=== PATIENT | female | born 1955 | race Caucasian/White ===

== ENCOUNTER 2020-07-31 00:34 | Outpatient (CLI) | payer BC, SELFPAY ==
--- NOTE | 2020-07-31 | DI.MAMMO_ITS ---
EXAM: MG MAMMO SCREENING CLINICAL HISTORY: SCREENING,Z12.31 TECHNIQUE: Bilateral full field digital CC and MLO mammographic images were obtained with 3D tomosyn thesis and utilizing computer aided detection (CAD). COMPARISON: Available for comparison. FINDINGS: Masses/Architectural Distortion: None seen. Microcalcifications: No suspicious pleomorphic-type are seen. Skin Thickening/Nipple Retraction: None. IMPRESSION: 1. No significant interval change with no specific features of malignancy noted. 2. Unless there is more urgent need, screening mammography is recommended, as per [employer] guidelines. BI-RADS Category 1 - Negative Breast Density - Category C - Heterogeneously dense The mammogram demonstrates the patient's breast tissue is dense. Dense breast tissue is very common a nd is not abnormal but dense breast tissue can make it harder to find cancer on a mammogram. Also, de nse breast tissue may increase their breast cancer risk. This information about the result of the [facility] mogram report was provided to the patient to raise their awareness. Use this report when you speak wi th the patient about their risks for breast cancer, which includes their family history. At that time , you may recommend for more screening tests (Ultrasound or MRI) as they might be useful based on the ir risk. A negative radiographic report should not delay biopsy if a dominant or clinically suspicious mass is present. Up to ten percent of cancers are not identified on mammography. A negative report may reinforce clinical impression. Adenosis and dense breasts may obscure an underlying neoplasm. False positive reports average 6 to 10%. Patient will receive a letter notifying them of these results.
== END 2020-07-31 00:54 ==
PROVIDERS: PCP Nurse Practitioner; Visit Provider Nurse Practitioner
DX: Z12.31 Encounter for screening mammogram for malignant neoplasm of breast (principal)
CPT/HCPCS: 77063; 77067

== ENCOUNTER 2020-07-31 00:40 | Outpatient (CLI) | payer BC, SELFPAY ==
--- NOTE | 2020-07-31 | DI.RAD_ITS ---
EXAM: XR CERVICAL SP DE LA GARZA TRAUMA 2-3V CLINICAL HISTORY: C4-7 FUSION IN 2012,NECK PAIN, ASSESS MOTION,CERVICALGIA,M54.2. TECHNIQUE: 2D digital imaging was performed. COMPARISON: No exams were available for comparison FINDINGS: This is a limited examination of the cervical spine. Lateral flexion and extension views of the cerv ical spine were obtained. There is an anterior cervical disc fusion from C4 through C7. 3.6 mm ante rolisthesis of C3 on C4 is noted. This is unchanged with flexion or extension. The prevertebral sof t tissues are unremarkable. 2 mm anterolisthesis of C2 on C3 is noted and is unchanged. IMPRESSION: DATA REPOSITORY: RADIATION DOSE DELIVERED:
== END 2020-07-31 01:00 ==
PROVIDERS: PCP Nurse Practitioner; Visit Provider Physician Assistant Medical
DX: M54.2 Cervicalgia (principal); Z98.1 Arthrodesis status
CPT/HCPCS: 72040

== ENCOUNTER 2021-02-09 19:33 | Emergency (ER) | payer BC, SELFPAY ==
[2021-02-09 19:35] VITALS: BP 146/61; PULSE 96; RESP 18; TEMP 36.2; O2SAT 94
--- NOTE | 2021-02-09 19:43 | W.ED.GENAD ---
Discharge Plan Disposition Patient Disposition: HOME Condition: Improving Discharge Details Chief Complaint: Orthopedic Clinical Impression: Contusion of hand, left Primary Care Provider: Evelyne Maloney ED Provider: Sudheer Harris Home Meds and New Rx's Prescriptions: No Action clonazepam [Klonopin] 0.5 mg Tablet 0.5 mg PO DAILY PRNRF: 0 hydrochlorothiazide 25 mg Tablet 25 mg PO DAILY RF: 0 Discharge Instructions Instructions: Contusion in Adults (ED) Additional Instructions: Please wear splint as needed for comfort and to allow for healing over the next 3 to 7 days time. Apply ice to area to reduce pain and swelling. Tylenol as needed for discomfort. Continue your regular medications. Return to the ER for any acute concerns. 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 The ball was thrown in her direction and struck the back of her left hand. She developed a dorsal bruise. Ice is applied and she presented to the ER. She is motor and sensory intact. Must exclude underlying bony injury and patient referred for x-ray. X-ray does not reveal bony injury. Given contusion and pain, patient placed in removable splint. She understands homecare as well as indications to seek reevaluation. Stable and appropriate for discharge to home HPI General Mode of arrival: ambulatory. Date/Time Provider Initiated Documentation: 02/09/21 19:39. Limitations to Documentation: no limitations. Information obtained by: patient. History of Present Illness 65 year old F presents to the emergency department with the chief complaint of Left hand injury, described as moderate, Quality is described as dull and constant, and is localized to the left and upper extremity. Patient reports no radiation. Patient started experiencing this minute(s) and it has been constant. No relieving factors improve symptom(s), No exacerbating factors reported . Patient did receive the following treatments prior to arrival, cold therapy Related Data Home Medications Medication Instructions Recorded Confirmed clonazepam [Klonopin] 0.5 mg PO DAILY PRN 02/09/21 02/09/21 hydrochlorothiazide 25 mg PO DAILY 02/09/21 02/09/21 Allergies Allergy/AdvReac Type Severity Reaction Status Date / Time promethazine [From Phenergan] AdvReac Psychosis Unverified 02/09/21 19:38 General Stated Complaint: Orthopedic KERVIN: 4 Review of Systems Narrative: 6 systems reviewed and otherwise neg [facility] Social History Smoking/Tobacco Use Status: Never Smoking risk assessment performed?: Yes Alcohol Intake: never Drug use: Never Substance use type: does not use Do you feel safe at home: Yes Do you feel safe in your relationship?: Yes Exam Narrative Exam Narrative: GEN: awake, alert, oriented 3. Pleasant, well groomed, interactive. HEAD: Normocephalic, atraumatic EYES: PERRL, EOMI EXT: Full ROM, left hand dorsum with ecchymosis overlying the third and fourth metacarpals, tender to touch. No bony clicks, distal range of motion and sensation is within normal limits. Neuro: Grossly normal neurologic exam, conversant, interactive. Psych: Speech fluent, thoughts congruent, affect normal Course Vital Signs Vital signs: Vital Signs Temperature 36.2 C L 02/09/21 19:35 Pulse 96 H 02/09/21 19:35 Respiratory Rate 18 02/09/21 19:35 Blood Pressure 146/61 H 02/09/21 19:35 Pulse Oximetry 94 02/09/21 19:35 Temperature 36.2 C L 02/09/21 19:35 Temperature Source Skin 02/09/21 19:35 Pulse 96 H 02/09/21 19:35 Respiratory Rate 18 02/09/21 19:35 Respiratory Effort Non-Labored 02/09/21 19:40 Blood Pressure 146/61 H 02/09/21 19:35 Blood Pressure Position Sitting 02/09/21 19:35 Pulse Oximetry 94 02/09/21 19:35 Oxygen Delivery Method Room Air 02/09/21 19:35 Oxygen Flow Rate 0 02/09/21 19:35 Pain Level 8 02/09/21 19:35
--- NOTE | 2021-02-09 19:45 | DI.RAD_ITS ---
Exam(s) XR HAND LT COMPLETE EXAM: XR HAND LT COMPLETE CLINICAL HISTORY: Hand pain. TECHNIQUE: 2D digital imaging was performed. COMPARISON: No exams were available for comparison FINDINGS: BONES: No acute fracture is present. No bony destructive lesion is seen. JOINTS: No dislocation present. There are venous degenerative changes at the 1st carpal metacarpal monserrat int. There is a in adjacent calcification which is degenerative. Minimal degenerative changes are s een elsewhere. IMPRESSION: Advanced degenerative changes at the 1st carpal metacarpal joint and adjacent calcification. No acut e abnormality. DATA REPOSITORY: RADIATION DOSE DELIVERED:
--- NOTE | 2021-02-09 21:00 | DI.VRAD_ITS ---
PROCEDURE INFORMATION: Exam: XR Left Hand Exam date and time: 02/09/2021 7:52 PM Age: 65 years old Clinical indication: Injury or trauma; Work related; Blunt trauma (contusions or hematomas); Left; Injury date: 02/09/21; Injury details: Hit by softball dorsal hand TECHNIQUE: Imaging protocol: XR Left hand. Views: 3 or more views. COMPARISON: No relevant prior studies available. FINDINGS: Bones/joints: There are no acute displaced fractures or subluxations. There is moderate narrowing of the basal joint of the 1st digit with periarticular spurring consistent with moderate degenerative joint disease. There are also mild degenerative changes of the 1st interphalangeal joint as well as the 2nd and 3rd distal interphalangeal joints. There is a 7 x 5 mm ossified body anterior lateral to the trapezium, which may be degenerative or sequela of old trauma. Osseous mineralization is normal. There are no inflammatory osseous erosive changes. No focal osseous lesions are identified. Soft tissues: Normal. IMPRESSION: 1. No acute displaced fractures or subluxations identified. 2. Moderate degenerative change of the basal joint of the 1st digit with mild degenerative changes elsewhere as described above. 3. Small ossified body anterior lateral to the trapezium, likely degenerative or sequela of old trauma. Dictated and Authenticated by: Demetrio Walker MD. Ordering:VICENTE Willard MD
== END 2021-02-09 20:48 | disposition home or self-care (01) ==
PROVIDERS: Emergency Provider Emergency Medicine; PCP Nurse Practitioner
DX: S60.222A Contusion of left hand, initial encounter (principal); W21.07XA Struck by softball, initial encounter; Y93.64 Activity, baseball
CPT/HCPCS: 29125; 99283; 73130

== ENCOUNTER 2022-02-14 19:51 | Emergency (ER) | payer BC, SELFPAY ==
[2022-02-14] VITALS (10 sets, daily range): BP systolic 123–140; BP diastolic 49–86; PULSE 92–105; RESP 8–25; TEMP 36.3–37; O2SAT 95–100
--- NOTE | 2022-02-14 20:00 | RT.EKG_ITS ---
APPROVED REPORT Exam: Resting ECG Reason for Exam: sob Patient Location: E HR:95 bpm ECG Measurements Heart Rate 95 AXIS DE 138 P 60 QRSd 84 QRS -5 QT 359 T 84 QTc 452 Conclusion Sinus rhythm...normal P axis, V-rate 60- 99 Physician: no stemi, stable
--- NOTE | 2022-02-14 20:15 | ED.GENADUL_ITS ---
Discharge Plan Disposition Patient Disposition: HOME Condition: Good Discharge Details Clinical Impression: Bronchitis Primary Care Provider: Evelyne Maloney ED Provider: Dominguez Loomis Home Meds and New Rx's Prescriptions: New azithromycin 250 mg tablet 250 mg PO DAILY 4 Days Qty: 4 0RF Rx Instructions: start on day 2 of therapy benzonatate 100 mg capsule 100 mg PO TID Qty: 30 0RF Continued clonazepam [Klonopin] 0.5 mg Tablet 0.5 mg PO DAILY PRN Discharge Instructions Instructions: Acute Bronchitis (ED) Additional Instructions: At this time your symptoms appear consistent with mild bronchitis and the start of early pneumonia. He also have reactive airway disease. You have been given the first dose of the antibiotic. A prescription has been sent to your pharmacy for the remainder of the antibiotic course. Please take this as directed. We have also sent a prescription for a cough medicine called Prasanna Monsalve. Please take this as directed.. We have given you an inhaler, please take 2 puffs every 12 hours for the next week to help with your cough and irritation. In addition to this you can also use your nebulizer at home every 4-6 hours as needed. If you notice any worsening of your symptoms, or any new symptoms such as vomiting, diarrhea, fever, chills, shortness of breath, chest pain, numbness, weakness, or fainting , please return immediately to the emergency department for reevaluation. Please follow up with your primary care provider as soon as possible for reassessment and reevaluation. As always, it was a pleasure participating in your medical care today. Referrals: Evelyne Maloney [Primary Care Provider] - Medical Decision Making This is a 66-year-old female with a past medical history of intermittent reactive airway disease who does have a nebulizer at home, no other significant past medical history who presents today for evaluation of cough for the last 4 days. Patient states that she has had a persistent cough cloudy sputum. She does admit to feeling sweaty but denies any fever. She has a small amount of pain when she coughs but no pain otherwise. She does feel slightly short of breath. She did take a breathing treatment at home but this did not improve her symptoms. Denies PE risk factors such as recent long car rides, immobilization, recent surgery, prior history of DVT or PE, family history of PE or DVT, morbid obesity, exogenous estrogen and smoking, hemoptysis, history of cancer. She denies any history of cardiac disease, other sick contacts, or history of tobacco abuse. She does have her COVID-vaccine and booster. No other complaints at this time. No hemoptysis. Exam demonstrates slightly diminished breath sounds throughout, minimal scattered crackles in the bases. Symptoms appear less consistent with ACS. Differential is highest for pneumonia. CHF exacerbation is on the differential but less likely. COVID is also of concern. We will evaluate for these etiologies, give breathing treatments, monitor closely and reassess. 10:21 PM X-ray result is negative for acute process per radiology, laboratory work-up demonstrates stable EKG, normal troponin, VBG stable, proBNP normal. No signs of CHF. COVID, flu, RSV are negative. Patient feels much better after updraft. Lung sounds are improved. I do hear some scattered crack still. I do feel that the patient symptoms are consistent with early bronchitis versus early pneumonia. We will give a Symbicort inhaler for home use for her persistent cough, Tessalon Perles for home use, and a prescription for azithromycin patient's vital signs are stable, no signs of significant respiratory distress requiring admission. Patient will be discharged home. Discussed red flags which to return. I have extensively reviewed the treatment plan and discharge instructions with the patient. I have addressed all patient concerns at this time. The patient was made aware of what symptoms to monitor for that would warrant a return to the emergency department. Discussed the plan with the patient, they demonstrate verbal understanding and agreement with our assessment and plan at this time. The documentation in this chart was dictated using [employer] dictation software. Please excuse any dictation errors. FINDINGS: Lungs: Low lung volumes. No airspace consolidation. Pleural spaces: No pleural effusion. No pneumothorax. Heart/Mediastinum: No cardiomegaly. Bones/joints: Cervical spine fixation hardware is partially assessed. No displaced fracture. IMPRESSION: Negative low volume study. Thank you for allowing us to participate in the care of your patient. Dictated and Authenticated by: Aniyah Dietz MD 02/14/2022 9:51 PM Eastern Time ([place] & [place]) HPI General Date/Time Provider Initiated Documentation: 02/14/22 19:55 . HPI Narrative: This is a 66-year-old female with a past medical history of intermittent reactive airway disease who does have a nebulizer at home, no other significant past medical history who presents today for evaluation of cough for the last 4 days. Patient states that she has had a persistent cough cloudy sputum. She does admit to feeling sweaty but denies any fever. She has a small amount of pain when she coughs but no pain otherwise. She does feel slightly short of breath. She did take a breathing treatment at home but this did not improve her symptoms. Denies PE risk factors such as recent long car rides, immobilization, recent surgery, prior history of DVT or PE, family history of PE or DVT, morbid obesity, exogenous estrogen and smoking, hemoptysis, history of cancer. She denies any history of cardiac disease, other sick contacts, or hi story of tobacco abuse. She does have her COVID-vaccine and booster. No other complaints at this time. No hemoptysis. Related Data Home Medications Medication Instructions Recorded Confirmed clonazepam 0.5 mg tablet (Klonopin) 0.5 mg PO DAILY PRN 02/09/21 02/09/21 azithromycin 250 mg tablet 250 mg PO DAILY 4 days #4 tabs 02/14/22 benzonatate 100 mg capsule 100 mg PO TID #30 caps 02/14/22 Previous Rx's Medication Instructions Recorded azithromycin 250 mg tablet 250 mg PO DAILY 4 days #4 tabs 02/14/22 benzonatate 100 mg capsule 100 mg PO TID #30 caps 02/14/22 Allergies Allergy/AdvReac Type Severity Reaction Status Date / Time promethazine [From Phenergan] AdvReac Psychosis Unverified 02/14/22 20:06 General Stated Complaint: SOB KERVIN: 2 Review of Systems All systems reviewed & are unremarkable except as noted in HPI and below PFSH All Active Problems (Updated 02/14/22 @ 22:18 by Dominguez Loomis DO) Contusion of hand, left (Acute) Bronchitis (Acute) Social History Smoking/Tobacco Use Status: Never Smoking risk assessment performed?: Yes Alcohol Intake: never Drug use: Never Substance use type: does not use Do you feel safe at home: Yes Do you feel safe in your relationship?: Yes Exam Narrative Exam Narrative: 1.Const: Well-nourished, Well-developed, appearing stated age 2.Eyes: PERRL, no conjunctival injection, and symmetrical lids. 3.ENT: Atraumatic external nose and ears. Moist MM. Neck: Symmetric, trachea midline, No thyromegaly. 4.CVS: +S1/S2, No murmurs or gallops. Peripheral pulses 2+ and equal in all extremities. Brisk capillary refill in all extremities. 5.RESP: Unlabored respiratory effort. Diminished breath sounds throughout, minimal scattered crackles at the bases. 6.GI: Soft, Nontender/Nondistended, No hepatosplenomegaly. No guarding or rebound. 7.MSK: Normocephalic/Atraumatic, Extremities w/o deformity or ttp No cyanosis or clubbing, Normal movement of all extremities, no pitting edema. 8.Skin: Warm, Dry. No rashes or lesions. 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 Sensation grossly intact, no focal neurologic deficits. 10.Psych: (AAO) x3. Appropriate mood and affect Course Vital Signs Vital signs: Vital Signs Temperature 36.3 C L 02/14/22 20:03 Pulse 105 H 02/14/22 20:03 Respiratory Rate 25 H 02/14/22 20:03 Blood Pressure 134/49 L 02/14/22 20:03 Pulse Oximetry 96 02/14/22 20:03 Temperature 36.3 C L 02/14/22 20:03 Temperature Source Temporal Artery Scan 02/14/22 20:03 Pulse 105 H 02/14/22 20:03 Respiratory Rate 25 H 02/14/22 20:03 Respiratory Effort 02/14/22 20:11 Respiratory Depth Shallow 02/14/22 20:11 Respiratory Pattern Tachypnea 02/14/22 20:11 Blood Pressure 134/49 L 02/14/22 20:03 Blood Pressure Position Sitting 02/14/22 20:03 Pulse Oximetry 96 02/14/22 20:03 Oxygen Delivery Method Room Air 02/14/22 20:03 Oxygen Flow Rate 0 02/14/22 20:03 Pain Level 0 02/14/22 20:03
[2022-02-14 20:27] LABS: BE (Venous) 6 mmol/L (-2-3); HCO3 (Venous) 31 mmol/L (23-28); O2 Sat (Venous) 58 %; TCO2 (Venous) 28 mmol/L (24-29); pCO2 (Venous) 54 mmHg (41-51); pH (Venous) 7.37 (7.31-7.41); pO2 (Venous) 32 mmHg
[2022-02-14 20:30] LABS: Abs Immature Grans 0.03 10^3/uL (0.0-0.06); Absolute Basophil Count 0.07 10^3/uL (0.0-0.2); Absolute Eosinophil Count 0.47 10^3/uL (0.0-0.7); Absolute Lymphocyte Count 2.13 10^3/uL (1.2-3.4); Absolute Monocyte Count 0.81 10^3/uL (0.1-0.8); Absolute Neutrophil Count 4.49 10^3/uL (1.2-6.7); Basophils % 0.9; Eosinophils % 5.9; HGB 13.6 g/dL (11.2-15.7); Immature Grans % 0.4; Lymphocytes % 26.6; MCH 30.6 pg (27.0-33.0); MCHC 32.4 % (32.0-36.0); MCV 95 fL (80-95); MPV 9.2 fL (8.0-11.0); Monocytes % 10.1; Neutrophils % 56.1; Platelet Count 339 10^3/uL (130-400); RBC 4.44 10^6/uL (3.93-5.22)
[2022-02-14] MEDS: Albuterol/Ipratropium 3 ML UPD VIAL 6 ML UPD (20:32)
[2022-02-14 20:49] LABS: ALT 44 U/L (14-59); AST 33 U/L (15-37); Albumin 3.4 g/dL (3.4-5.0); Alkaline Phosphatase 123 U/L (46-116); Anion Gap 7.6 mmol/L (3-11); BUN 14 mg/dL (7-18); Bilirubin, Total 0.2 mg/dL (0.2-1.0); CO2 29.4 mmol/L (21.0-32.0); Chloride 104 mmol/L (98-107); Estimated GFR 55.47 (mL/min/1.73m2); Glucose 109 mg/dL (74-106); NT-proBNP 16 pg/mL (<300); Potassium 4.2 mmol/L (3.5-5.1); Sodium 141 mmol/L (136-145); Total Protein 7.2 g/dL (6.4-8.2); Troponin I < 50 ng/L (<or=60)
[2022-02-14 21:10] LABS: COVID-19 PCR Negative (Negative); Influenza A PCR Negative (Negative); Influenza B PCR Negative (Negative); RSV PCR Negative (Negative)
--- NOTE | 2022-02-14 21:36 | DI.RAD_ITS ---
Exam(s) XR PORTABLE CHEST AP EXAM: XR PORTABLE CHEST AP CLINICAL HISTORY: cough, sob, r/o pneumonia TECHNIQUE: 2D digital imaging was performed. COMPARISON: No exams were available for comparison FINDINGS: Poor pulmonary inflation. Leads overlie the chest. Lungs are grossly clear. Heart size normal. [place]ola[place] rdware lower cervical spine.. IMPRESSION: No acute findings. DATA REPOSITORY: RADIATION DOSE DELIVERED:
--- NOTE | 2022-02-14 21:52 | DI.VRAD_ITS ---
PROCEDURE INFORMATION: Exam: XR Chest Exam date and time: 02/14/2022 21:23 Age: 66 years old Clinical indication: Patient HX: Cough, covid - TECHNIQUE: Imaging protocol: XR of the chest. Views: 1 view. COMPARISON: CR XR CERVICAL SP DE LA GARZA TRAUMA 2-3V 07/31/2020 12:31 FINDINGS: Lungs: Low lung volumes. No airspace consolidation. Pleural spaces: No pleural effusion. No pneumothorax. Heart/Mediastinum: No cardiomegaly. Bones/joints: Cervical spine fixation hardware is partially assessed. No displaced fracture. IMPRESSION: Negative low volume study. Dictated and Authenticated by: Aniyah Dietz MD. Ordering:WILBERTO Mix MD
[2022-02-14] MEDS: Benzonatate 100 MG CAP PO (22:36)
[2022-02-14] MEDS: Azithromycin 250 MG TAB 500 MG PO (22:36)
[2022-02-14] MEDS: Budesonide/Formoterol 160/4.5 6 GM 60 PUFF INH IH (22:37)
== END 2022-02-14 22:52 | disposition home or self-care (01) ==
PROVIDERS: Emergency Provider Student in an Organized Health Care Education/Training Program; PCP Nurse Practitioner
DX: J20.9 Acute bronchitis, unspecified (principal)
CPT/HCPCS: 36415; 80053; 82805; 87637; 93005; 94640; 99284; 71045; 83880; 84484; 85025; 93010; J7620

== ENCOUNTER → 2022-03-11 10:37 | Outpatient (CLI) | payer BC, SELFPAY ==
--- NOTE | 2022-03-11 | DI.RAD_ITS ---
Exam(s) XR RIBS RT W PA LAT CHEST EXAM: XR RIBS RT W PA LAT CHEST CLINICAL HISTORY: RIGHT SIDED RIB PAIN--R07.81 TECHNIQUE: 2D digital imaging was performed. COMPARISON: CR,XR XR PORTABLE CHEST AP from 02/14/2022 FINDINGS: RIGHT RIB CAGE: There are no obvious acute right rib fractures evident. No rib lesions identified. CHEST X-RAY: Fusion plate in the lower cervical spine again noted. Heart size normal. No mediastinal widening Atelectasis or scarring in the right lung upper lobe is again noted. Atelectasis or mild infiltrate right lower lobe noted. No pleural effusions. No pneumothorax.. IMPRESSION: 1. No obvious right rib fractures evident. 2. Scarring or atelectasis in the right upper lobe noted, previously present although mildly increase d. There also appears to be some atelectasis in the right lower lobe behind the hemidiaphragm. Ther e is no pneumothorax DATA REPOSITORY: RADIATION DOSE DELIVERED:
--- OUTSIDE RECORDS SUMMARY | 2022-03-11 10:50 | XMS_ITS ---
:1955 Author Care Team Providers Name Role Phone DR. VIOLETA DURHAM Primary Care Provider [phone] DR. VIOLETA DURHAM Referring Provider [phone] VIOLETA DURHAM APRN Primary Care Provider Unavailable ANABEL HERNANDEZ Executive Search Consultant [phone] CANELA Primary Care Provider Unavailable DR. CANELA Referring Provider Unavailable Allergies Code Code System Name Reaction Severity Status Onset 309496 RxNorm Phenergan ? ? Active ? Medications Name Status Start Date Stop Date ? ? Advair Diskus 500 mcg-50 mcg/dose powder for inhalation Active 11/28/2012 Not available Inhale 1 puff twice a day by inhalation route. atorvastatin 10 mg tablet Active ? Not av ailable Take 1 tablet every day by oral route at bedtime. Cortisporin 3.5 mg/mL-10,000 unit/mL-1 % ear drops,suspensio n Completed 06/09/2017 07/11/2017 INSTILL 4 DROPS INTO AFFECTED EAR(S) BY OTIC ROUTE 3 TIMES PER DAY Depakote 500 mg tablet,delayed release Completed ? 07/11/2017 Take by oral route. Diflucan 150 mg tablet Completed ? 7 Take by oral route. escitalopram 20 mg tablet Active ? Not av ailable Take 1.5 tablets every day by oral route. Flonase 50 mcg/actuation nasal spray,suspension Active ? Not available [place] 1 spray every day by intranasal route. hydrochlorothiazide 12.5 mg tablet Active ? Not available Take 1 tablet every day by oral route. hydrocortisone 2.5 % topical cream Active 06/24/2017 Not available APPLY A THIN LAYER TO THE AFFECTED AREA(S) BY TOPICAL ROUTE 2 T IMES PER DAY ketorolac 10 mg tablet Active ? Not avail able Take 1 tablet every 6 hours by oral route for 4 days. Klonopin 0.5 mg tablet Active ? Not avail able TAKE 1 TABLET (0.5 MG) BY ORAL ROUTE TWICE A DAY IN T HE AM AND 2 AT BEFORE BED Lidocaine HCl Viscous 2 % mucosal solution Completed 09/2807/11/2017 Take 5 mL every 3-4 hours by oral route as needed. meclizine 25 mg tablet Active ? Not avail able Take 1 tablet 3 times a day by oral route as needed. Miralax 17 gram oral powder packet Completed ? 07/11/2017 Take 1 packet by oral route as directed. naproxen 500 mg tablet Completed 10/23/2015 7 Take 1 tablet every hour by oral route as needed. nortriptyline 10 mg capsule Active ? Not available Take 1 capsule every day by oral route at bedtime. nortriptyline 25 mg capsule Completed ? 06/26 Take 2 capsules every day by oral route at bedtime. Singulair 10 mg tablet Completed 02/15/2017 7 Take 1 tablet every day by oral route at bedtime. sumatriptan 100 mg tablet Completed ? 2016 Take 1 tablet by oral route as needed. Problems Name Status Onset Date Source ? Hypercholesterolemia Active ? ? Restless Legs Active ? ? Migraine Active ? ? 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 ? Reactive Airway Disease Active ? ? Osteoarthritis Active ? ? Bursitis Active ? ? Plantar Fascial Fibromatosis Active ? ? Menopause Active ? ? Procedures Date Name Performed by ? 04/09/2016 Carpal Tunnel Surgery Information not av ailable 11/25/2011 Spine Disk Surgery Thorax Information no t available Notes: C4, C5, C6, C7 ? Knee Surgery Information not avai lable Notes: 2014 ? Foot Surgery Information not avai lable Notes: [id number] ? Remove Thyroid Duct Lesion Information n ot available Notes: Excision ectopic thyroid [facility] [place] ? Shoulder Surgery Information not avai lable Notes: RIGHT ? 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 12/22/2021 Amylase, [id number] Normal [place] 36 U/L 25-115 Final [place] Serum or U/L [facility] Plasma Laboratory & Pathology: [address] [place] [address] 12/22/2021 CMP, Serum [id number] Normal Na 141 mEq/L 136-145 Fi [place] or Plasma mEq/L [facility] l Laboratory & Pathology: [address] [place] [address] ? ? [id number] Normal K 4.2 mEq/L 3.5-5.1 Final [place] mEq/L [facility] Laboratory & Pathology: [address] [place] [address] ? ? [id number] Normal Cl 105 mEq/L 98-107 Final [facility] age mEq/L [facility] & Pathology: [address] [place] [address] ? ? [id number] Normal Co2 30 mEq/L 21-31 Final [facility] ge mEq/L [facility] Laboratory & Pathology: [address] [place] [address] ? ? [id number] ? Agap 10.8 ? Final [facility] calcul[facility] Hosp[facility] on Laboratory & Pathology: [address] [place] [address] ? ? [id number] Normal Glu 91 mg/dL 70-100 Final [facility] ge mg/dL [facility] Pathology: [address] [place] [address] ? ? [id number] Normal Bun 12 mg/dL 7-18 Final [facility] ge mg/dL [facility] Laboratory & Pathology: [address] [place] [address] ? ? [id number] Normal Creat 0.80 0.55-1.02 Final [facility] mg/dL mg/dL [facility] Laboratory & Pathology: [address] [place] [address] ? ? [id number] ? Bn/cr 15.0 ? Final [facility] Laboratory & Pathology: [address] [place] [address] ? ? [id number] Normal Ca 8.5 mg/dL 8.5-10.1 Final [place] mg/dL Hospital Laboratory [facility] Pathology: [address] [place] [address] ? ? [id number] Normal Alkp 92 U/L 50-130 Final [facility] U/L [facility] & Pathology: [address] [place] [address] ? ? [id number] Normal Alt 21 U/L 14-59 U/L Final [facility] Laboratory & Pathology: [address] [place] [address] ? ? [id number] Normal Ast 16 U/L 15-37 U/L Final [facility] Laboratory & Pathology: [address] [place] [address] ? ? [id number] Normal Tbil 0.2 mg/dL <=1.2 Final [facility] mg/dL Hospital Laboratory [facility] Pathology: [address] [place] [address] ? ? [id number] Normal Tp 6.8 g/dL 6.4-8.2 Final [facility] g/dL [facility] Laboratory & Pathology: [address] [place] [address] ? ? [id number] Normal Alb 3.5 g/dL 3.4-5.0 Final [facility] g/dL [facility] & Pathology: [address] [place] [address] ? ? [id number] ? Glob 3.28 ? Final [facility] mg/dL [facility] Laboratory & Pathology: [address] [place] [address] ? ? [id number] ? A/g 1.1 calc ? Final [facility] Laboratory & Pathology: [address] [place] [address] ? ? [id number] ? Egfraa 86.98 ? Final [facility] Laboratory & Pathology: [address] [place] [address] ? ? [id number] ? Egfrnaa 71.76 ? Final [facility] Laboratory & Pathology: [address] [place] [address] 12/22/2021 CBC W/ Auto [id number] Normal Wbc 5.8 4.8-10.8 Liliam l [facility] Diff 10^3/mm^3 10^3/mm^3 Hosp ital Laboratory & Pathology: [address] [place] [address] ? ? [id number] Normal Rbc 4.54 3.90-5.03 Final [facility] [place] [place] 10^6/mm^3 10^6/mm^3 Hosp ital Laboratory & Pathology: [address] [place] [address] ? ? [id number] Normal Hgb 13.8 g/dL 12.0-15.5 Final [place] g/dL Hospital Laboratory [facility] Pathology: [address] [place] [address] ? ? [id number] Normal Hct 44 % 36-46 % Final [facility] Laboratory & Pathology: [address] [place] [address] ? ? [id number] Normal Mcv 96.9 fL 81.0-99.0 Final [facility] fL [facility] Laboratory & Pathology: [address] [place] [address] ? ? [id number] Normal Mch 30.4 pg 27.1-32.0 Final [facility] pg [facility] Laboratory & Pathology: [address] [place] [address] ? ? [id number] Low Mchc 31 g/dL 33-36 Final [facility] g/dL [facility] Laboratory & Pathology: [address] [place] [address] ? ? [id number] Normal Rdw 13.8 % 11.6-14.8 Final [facility]ology: [address] [place] [address] ? ? [id number] Normal Platelet 296 150-400 Final [facility] 10^3/mm^3 10^3/mm^3 Hosp ital Laboratory & Pathology: [address] [place] [address] ? ? [id number] Normal Ne# 2.79 1.20-6.70 Final [place] 10^3/mm^3 10^3/mm^3 Hosp ital Laboratory & Pathology: [address] [place] [address] ? ? [id number] Normal Ly# 1.58 1.20-3.40 Final [place] 10^3/mm^3 10^3/mm^3 Hosp ital Laboratory & Pathology: [address] [place] [address] ? ? [id number] Normal Mo# 0.43 0.11-0.70 Final [place] 10^3/mm^3 10^3/mm^3 Hosp ital Laboratory & Pathology: [address] [place] [address] ? ? [id number] High Eo# 0.96 0.00-0.70 Final [place] 10^3/mm^3 10^3/mm^3 Hosp ital Laboratory & Pathology: [address] [place] [address] ? ? [id number] Normal Ba# 0.05 0.00-0.20 Final [place] 10^3/mm^3 10^3/mm^3 Hosp ital Laboratory & Pathology: [address] [place] [address] ? ? [id number] Normal Neut% 48 % per 40-74 % Final [place] 100 WBC per 100 Hospital WBC Laboratory & Pathology: [address] [place] [address] ? ? [id number] Normal Ly% 27 % per 19-48 % Final [place] 100 WBC per 100 Hospital WBC Laboratory & Pathology: [address] [place] [address] ? ? [id number] Normal Mo% 7.4 % per 3.0-10.0 Final [place] 100 WBC % per 100 Hospit al WBC Laboratory & Pathology: [address] [place] [address] ? ? [id number] High Eo% 16.5 % 1.0-7.0 % Final [place] per 100 per 100 Hospital WBC WBC Laboratory & Pathology: [address] [place] [address] ? ? [id number] Normal Ba% 0.9 % per 0.0-2.0 % Final [place] 100 WBC per 100 Hospital WBC Laboratory & Pathology: [address] [place] [address] 10/10/2020 SARS CoV 2 ? Upper nasophary ? [place] RNA Respirato [facility]geal Hosp[facility] l (COVID-19), ry Source [place] QL, senior administrative assistant-PCR, & Respiratory Patho logy: Specimen 90 [facility] ? ? Normal Sars not not [place] Cov-2 RNA detected detected Hos pital (Covid-19 Laborat ory ) & Pathology: [address] [place] [address] 06/23/2020 SARS CoV 2 ? Upper nasophary ? [place] RNA Respirato ngeal Hospita l (COVID-19), ry Source [place] QL, senior administrative assistant-PCR, & Respiratory Patho logy: Specimen 90 [facility] ? ? Normal Sars not not [place] Cov-2 RNA detected detected Hos pital (Covid-19 Laborat ory ) & Pathology: [address] [place] [address] 04/29/2018 Rf Low Rheumato <10 IU/mL 0-13 [place] (Rheumatoid id Factor IU/mL Ho spital Factor), Laborato ry Serum & Pathology: [address] [place] [address] Past Encounters None recorded. Social History Tobacco Smoking Status Never Smoker Notes: 07/11/17 Vaccine List Vaccine Type influenza, unspecified formulation 07/30/2011 06/22/2012 07/16/2013 07/16/2014 07/15/2015 06/28/2016 Tdap 07/22/2008 zoster live 08/01/2015 Plan of Care Reminders Provider Appointments None recorded. ? ? Lab None recorded. ? ? Referral None recorded. ? ? Procedures None recorded. ? ? Surgeries None recorded. ? ? Imaging None recorded. ? ? Vitals Blood Pressure 120/78 mm[Hg]
--- OUTSIDE RECORDS SUMMARY | 2022-03-11 10:51 | XMS_ITS ---
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 Adminis tered Rocephin Ceftriaxone 1g IM Intramuscular Oct 29, 2019 Adminis tered Pneumovax 23 Adult 65+ Purchased IM Intramuscular May 18, [id number] [place] [id number] IM Intramuscular Jun 12, 2018 Administere d Influenza Adult FluBlok high dose IM Intramuscular Jul 06, 2021 Administered PURCHASED Rocephin Ceftriaxone IM Intramuscular Sep 15, 2018 Administer ed Rocephin Ceftriaxone IM Intramuscular Sep 16, 2018 Administer ed INFLUENZA 18 YRS TO 64 YRS Unknown Jul 30, 2011 Admin istered OLD-STATE SUPPLIED COVID-19 Moderna [id number] IM Intramuscular December 15, 2020 Administ ered COVID-19 Moderna 84741 IM Intramuscular January 12, 2021 Administ ered INFLUENZA 18 YRS TO 64 YRS IM Intramuscular Jun 25, 2019 Admi nistered OLD-STATE SUPPLIED INFLUENZA 18 YRS TO 64 YRS IM Intramuscular Oct 04, 2018 Admi nistered OLD-STATE SUPPLIED INFLUENZA 18 YRS TO 64 YRS IM Intramuscular Aug 08, 2017 Admi nistered OLD-STATE SUPPLIED INFLUENZA 18 YRS TO 64 YRS IM Intramuscular Jun 28, 2016 Admi nistered OLD-STATE SUPPLIED INFLUENZA 18 YRS TO 64 YRS IM Intramuscular Jul 15, 2015 Admi nistered OLD-STATE SUPPLIED INFLUENZA 18 YRS TO 64 YRS IM Intramuscular Jul 16, 2014 Admi nistered OLD-STATE SUPPLIED INFLUENZA 18 YRS TO 64 YRS IM Intramuscular Jul 19, 2013 Admi nistered OLD-STATE SUPPLIED INFLUENZA 18 YRS TO 64 YRS IM Intramuscular Jun 22, 2012 Admi nistered O[employer]-STATE SUPPLIED COVID-19 Moderna [id number] Unknown Jul 29, 2021 Administe red Solu-Cortef 100mg per 2mL IM Intramuscular Aug 10, 2018 Admin istered Solu-Cortef 100mg per 2mL IM Intramuscular Sep 15, 2018 Admin istered Solu-Cortef 100mg per 2mL IM Intramuscular Sep 16, 2018 Admin istered Solu-Cortef 100mg per 2mL IM Intramuscular Sep 17, 2018 Admin istered TDaP Adult [facility] [id number] Unknown Jul 22, 2008 Administer ed TDaP Adult [facility] [id number] IM Intramuscular Jun 12, 2018 Administe red Zostavax [facility] [address] SC Subcutaneous Aug 01, 2015 Administered Solu-Cortef 100mg per 2mL IM Intramuscular Sep 18, 2018 Admin istered Solu-Cortef 100mg per 2mL IM Intramuscular Oct 29, 2019 Admin istered Prevnar PCV 13 Adult 65+ Purchased IM Intramuscular Jun 30, 2020 Administered 95038 SOCIAL HISTORY Qualifiers Date Never Smoker REASON FOR REFERRAL Reason xray LS spine pain radiating down Referral Organization [facility] [place] Referring Provider First Name Evelyne Referring Provider Last Name Amara Referring Provider Specialty Nurse Practitioner Referring Provider Referring Provider email [email or web address] Referred Organization [facility] Referred Provider [facility], Referred Address [facility] [place],[id number] Referred Provider Specialty Radiology Referral Appointment Date 2011-08-06 Reason MRI OF LS SPINE Referral Organization [facility] [place] Referring Provider First Name Evelyne Referring Provider Last Name Amara Referring Provider Specialty Nurse Practitioner Referring Provider Referring Provider email [email or web address] Referred Provider KATELYN Solis , MRI Referred Provider Specialty Radiology Referral Appointment Date 2011-08-18 Reason vertigo with history of meni ere's faxed paperwork to Dr. Lincoln office they will process and contact pt. Referral Organization [facility] [place] Referring Provider First Name Evelyne Referring Provider Last Name Amara Referring Provider Specialty Nurse Practitioner Referring Provider Referring Provider email [email or web address] Referred Provider Katya Lincoln Referred Provider Specialty Allergy/Immunology Referral Appointment Date 2012-02-24 Reason complex cyst of the myeometr ium of the uterus along with DUB Referral Organization [facility] [place] Referring Provider First Name Evelyne Referring Provider Last Name Amara Referring Provider Specialty Nurse Practitioner Referring Provider Referring Provider email [email or web address] Referred Provider [facility] Referred Provider Specialty OB - Gynecology Referral Appointment Date 2012-05-16 Reason Very Dizzy and has Meniere's disease- Will take 5pm on tuesday please Referral Organization [facility] [place] Referring Provider First Name Evelyne Referring Provider Last Name Amara Referring Provider Specialty Nurse Practitioner Referring Provider Referring Provider email [email or web address] Referred Provider Blake Molina Referred Provider Specialty Physical Therapist Referral Appointment Date 2012-10-23 Reason Vertigo Faxed referral pleas e call pt to schedule appt 10/16/2014 ia Referral Organization [facility] [place] Referring Provider First Name Renetta Murillo Referring Provider Last Name [email or web address] Referring Provider Specialty Family Practice Referring Provider Referred Provider Blake Molina Referred Provider Specialty Physical Therapist Reason left knee pain with Bakers c yst Faxed referral please call pt to schedule appt 04/01 ia Referral Organization [facility] [place] Referring Provider First Name Evelyne Referring Provider Last Name Coinjock Referring Provider Specialty Nurse Practitioner Referring Provider Referring Provider email [email or web address] Referred Provider [facility] Referred Provider Specialty Physical Therapist Referral Appointment Date 2015-04-23 Reason left knee pain with patella tendonosis Faxed referral please call pt to schedule a ppt at [facility] 07/21/2015 ia Referral Organization [facility] [place] Referring Provider First Name Evelyne Referring Provider Last Name Amara Referring Provider Specialty Nurse Practitioner Referring Provider Referring Provider email [email or web address] Referred Provider Stephan Menezes Referred Provider Specialty Orthopedic Surgery Reason Left knee pain Apd just need ed an updated referral for more visits. 10/22/2015 Mouna , do you know if this update on how many referrals were needed has been done; [facility] called today Referral Organization [facility] [place] Referring Provider First Name Evelyne Referring Provider Last Name Coinjock Referring Provider Specialty Nurse Practitioner Referring Provider Referring Provider email [email or web address] Referred Provider Stephan Menezes Referred Provider Specialty Orthopedic Surgery Reason dequervains tendonitis Faxe d referral please call pt to schedule appt 11/04/2015 ia Referral Organization [facility] [place] Referring Provider First Name Evelyne Referring Provider Last Name Amara Referring Provider Specialty Nurse Practitioner Referring Provider Referring Provider email [email or web address] Referred Provider [facility] Referred Provider Specialty Occupational Therapy Reason Rt wrist pain Faxed referral please call pt to schedule appt 11/24/2015 ia Referral Organization [facility] [place] Referring Provider First Name Evelyne Referring Provider Last Name Coinjock Referring Provider Specialty Nurse Practitioner Referring Provider Referring Provider email [email or web address] Referred Provider Gail Matthews Referred Provider Specialty Orthopedic Surgery Referral Appointment Date 2016-01-08 Reason right foot pain Faxed refer ral please call pt to schedule appt 06/27/2017 sc Referral Organization [facility] [place] Referring Provider First Name Evelyne Referring Provider Last Name Amara Referring Provider Specialty Nurse Practitioner Referring Provider Referring Provider email [email or web address] Referred Provider MD Spaulding Denis Referred Provider Specialty Podiatry Referral Appointment Date 2017-07-11 Reason right foot pain Faxed refer ral please call pt to schedule appt 07/18/2017 sc Referral Organization [facility] [place] Referring Provider First Name Evelyne Referring Provider Last Name Amara Referring Provider Specialty Nurse Practitioner Referring Provider Referring Provider email [email or web address] Referred Provider [facility] Referred Provider Specialty Podiatry Reason Dr Brendon she has seen him in the past Right foot pain order faxed pls contact pt to schedule 02/22/18 EFG Referral Organization [facility] [place] Referring Provider First Name Evelyne Referring Provider Last Name Amara Referring Provider Specialty Nurse Practitioner Referring Provider Referring Provider email [email or web address] Referred Provider [facility] Referred Provider Specialty Family Practice Referral Appointment Date 2018-03-06 Reason hearing loss of right ear 1 /2 pt needs appt gracy Referral Organization [facility] [place] Referring Provider First Name Evelyne Referring Provider Last Name Amraa Referring Provider Specialty Nurse Practitioner Referring Provider Referring Provider email [email or web address] Referred Provider [facility], Audiology Referred Provider Specialty Audiologists Reason acute sinusitis, hearing los s vertigo with history Meneire's and right endolymp hatic shunt Referral Organization [facility] [place] Referring Provider First Name Evelyne Referring Provider Last Name Amara Referring Provider Specialty Nurse Practitioner Referring Provider Referring Provider email [email or web address] Referred Provider [facility], Otolaryngology Referred Provider Specialty Otolaryngology Referral Appointment Date 2018-09-22 Reason bi-lateral hearing aids 02/02 referral faxed pls contact to schedule appt Referral Organization [facility] [place] Referring Provider First Name Evelyne Referring Provider Last Name Amara Referring Provider Specialty Nurse Practitioner Referring Provider Referring Provider email Referred Provider [facility] Reason cervicalgia Referral Organization [facility] [place] Referring Provider First Name Evelyne Referring Provider Last Name Amara Referring Provider Specialty Nurse Practitioner Referring Provider Referring Provider email [email or web address] Referred Provider Specialty Physical Therapist FUNCTIONAL STATUS PLAN OF CARE Activity Details Future Appointment Provider Name:Evelyne Young jesenia, 2022-05-24 04:40:00 PM, [address] [place], [id number], Referral 2011-08-06, xray LS spine pa in radiating down, [facility], [place], [place], [id number], Referral 2011-08-18, MRI OF LS SPINE, [place] [facility] Referral 2012-02-24, vertigo with his tory of meniere's faxed paperwork to Dr. Lincoln office they will process and contact pt., Katya Lincoln Referral 2012-05-16, complex cyst of the myeometrium of the uterus along with DUB, [facility] Referral 2012-10-23, Very Dizzy and h as Meniere's disease- Will take 5pm on tuesday please, Blake Molina Referral Vertigo Faxed referral pleas e call pt to schedule appt 10/16/2014 sc, Blake Molina Referral 2015-04-23, left knee pain w ith Bakers cyst Faxed referral please call pt to schedule appt 04/01 ia, Rehab [facility] Referral left knee pain with patella tendonosis Faxed referral please call pt to schedule appt at [facility] 1 sc, Stephan Menezes Referral Left knee pain Apd just need ed an updated referral for more visits. 10/22/2015 Mouna, do you know if this update on how many referrals were needed has be en done; [facility] called today, Stephan Menezes Referral dequervains tendonitis Faxe d referral please call pt to schedule appt 11/04/2015 ia, Rehab [facility] Referral 2016-01-08, Rt wrist pain Fa xed referral please call pt to schedule appt 11/24/2015 sc, Gail Matthews Referral 2017-07-11, right foot pain Faxed referral please call pt to schedule appt 06/27/2017 Joe fraga MD Referral right foot pain Faxed refer ral please call pt to schedule appt 07/18/2017 sc, [facility] Referral 2018-03-06, Dr Olivas she has seen him in the past Right foot pain order faxed pls contact pt to schedule 02/22/18 EFG, [facility] Referral hearing loss of right ear 1 /2 pt needs appt gracy, Audiology [facility] Referral 2018-09-22, acute sinusitis, hearing loss vertigo with history Meneire's and right endolymp hatic shunt, Otolaryngology [facility] Referral bi-lateral hearing aids 02/02 referral faxed pls contact to schedule appt, [facility] Referral cervicalgia Future Test CMP 20170429 Future Test LIPID PANEL 20170429 Future Test URIC ACID 20170429 Future Test LIZZETTE IFA RHEUMATOID ARTHRITIS DIAGNOSTIC PANEL WITH REFLEX TITER PATTERN [id number] Future Test CMP 20120417 Future Test LIPID PANEL 20120417 VITAL SIGNS Temperature 98.7 degrees Fahrenheit 2022-02-18 Heart Rate 93 BPM 2022-02-18 Respiratory Rate 16 /min 2020-09-02 Oximetry 95 % 2022-02-18 Height 61.5 in 2022-02-18 Weight 159 lbs 2021-05-18 BMI 29.55 kg/m2 2021-05-18 Blood pressure systolic 132 mmHg 2022-02-18 Blood pressure diastolic 76 mmHg 2022-02-18 MEDICATIONS Medication Instructions Dosage Frequency Start End Duration Statu s Date Date buPROPion HCl ER TAKE 1 90 Active (SR) 200 MG TABLET BY MOUTH TWICE A DAY traZODone HCl 50 Orally Once a 1 tablet at 24h Aug, 30 da y(s) Active MG day bedtime as 2020 needed Ondansetron HCl 4 Orally Every 8 1 tablet Nov, day (s) Active MG hours as needed 2021 Advair Diskus Inhalation 1 puff 12h Nov, days Unknown 500-50 MCG/DOSE Twice a day 2012 predniSONE 20 MG Orally Once 2 tablet 24h 18 February, 5 days Ac tive Daily 2021 Azithromycin 250 Orally 4 days as directed 15 February, Active MG start on 2day 2 2021 of therapy Escitalopram TAKE 1 AND 90 Active Oxalate 20 MG 1/2 TABLETS BY MOUTH ONCE DAILY Fluticasone Once nasally ONCE DAILY 90 days Acti ve Propionate 50 MCG/ACT Benzonatate 200 MG Orally Three 1 capsule 8h 15 February, 7 days Active times a day as needed 2021 KlonoPIN 0.5 MG Orally Twice a 1 tablet in 12h 14 Jun, da ys Active day am and 2 at 2020 HS SUMAtriptan Orally one at 1 tablet as Aug, day(s) A ctive Succinate 100 mg onset of needed one 2012 headache and on time 2 hours later not to exceed 2 in 24 hours Pramipexole Orally Once a 1 tablet Nov, day(s) Act britany Dihydrochloride day at bedtime 2019 0.25 MG Vitamin D 5000 IU Orally Once a 1 Tablet 24h Active day Fexofenadine HCl Orally Once a 1 tablet as 24h 90 Active 180 MG day needed Nortriptyline HCl TAKE 3 Active 10 mg CAPSULES ONCE DAILY Magnesium Oxide TAKE ONE 90 Active 400 (241.3 Mg) MG TABLET BY MOUTH TWICE A DAY DIRECTED MiraLax 17 gm Orally as as directed 30 days Acti ve needed Pantoprazole Orally Twice a 1 tablet 12h 30 days Act britany Sodium 40 mg day Meclizine HCl 25 Orally Three 1 tablet 10 A ctive MG times a day prn PROCEDURES Procedure Date Ordered Result Body Site IMMUNIZATION ADMIN Jul 19, 2013 Rocephin Ceftriaxone 1gm Oct 29, 2019 Transitional Care Management-CC Portion February 11, 2021 THER/PROPH/DIAG INJ, SC/IM Aug 10, 2018 IMMUNIZATION ADMIN May 18, 2021 TORADOL PER 15MG February 02, 2012 REMOVE SKIN TAGS each additional 10 skin tags February 04, 2017 Organic Preparation Analyst Phone Consultation January 29, 2020 Organic Preparation Analyst Phone Consultation November 28, 2018 Organic Preparation Analyst Phone Consultation February 15, 2022 Organic Preparation Analyst Phone Consultation February 11, 2021 Organic Preparation Analyst Phone Consultation Sep 13, 2020 Organic Preparation Analyst Phone Consultation January 29, 2020 INFLUENZA-Adults ([facility] PURCHASED) Jul 16, 2014 PHYSICAL MEDICINE PROCEDURE Jun 30, 2020 EAR irrigation/lavage Jul 06, 2021 SARS-COV-2 COVID-19 AMP PRB May 04, 2021 VENIPUNCT, ROUTINE* (IH) Nov 19, 2013 INFLUENZA 18 YRS TO 64 YRS OLD-STATE SUPPLIED Jun 25, 2019 INFLUENZA-Adults ([facility] PURCHASED) Jul 19, 2013 EKG WITH INTERPRETATION 2011-11-19 N/A TDAP VACCINE 7 and Up IM Jun 12, 2018 Organic Preparation Analyst Phone Consultation February 15, 2022 PAP SMEAR OBTAIN 2015-04-24 N/A Organic Preparation Analyst Phone Consultation February 15, 2022 EAR IRRIGATION 2015-07-15 N/A INFLUENZA-Adults ([facility] PURCHASED) Jun 28, 2016 ROCEPHIN, PER 250MG 2018-09-15 N/A INFLUENZA-Adults ([facility] PURCHASED) Jul 15, 2015 SOLUCORTEF 100MG 2018-09-15 N/A SOLUCORTEF 100MG 2019-10-29 N/A SPECIMEN HANDLING Jun 23, 2020 PNEUMOCOCCAL VACCINE (23) Adult May 18, 2021 Influenza Adult FluBlok high dose PURCHASED Jul 06, 2021 INFLUENZA 18 YRS TO 64 YRS OLD-STATE SUPPLIED Oct 04, 2018 Prevnar PCV 13 Adult 65+ Purchased [id number] Jun 30, 2020 IMMUNIZATION ADMIN Jun 25, 2019 IMMUNIZATION ADMIN Jun 12, 2018 IMMUNIZATION ADMIN Aug 01, 2015 IMMUNIZATION ADMIN Jun 22, 2012 TORADOL PER 15MG January 18, 2012 OCCULT BLOOD, FECES, SINGLE Jun 24, 2017 THER/PROPH/DIAG INJ, SC/IM Sep 15, 2018 Transitional Care Management-CC Portion January 02, 2016 ZOSTER VACC, SC Aug 01, 2015 SARS-COV-2 COVID-19 AMP PRB Jun 15, 2021 Rocephin Ceftriaxone 1gm Sep 18, 2018 THER/PROPH/DIAG INJ, SC/IM Sep 16, 2018 THER/PROPH/DIAG INJ, SC/IM Sep 17, 2018 Organic Preparation Analyst Phone Consultation Nov 23, 2018 THER/PROPH/DIAG INJ, SC/IM Oct 29, 2019 IMMUNIZATION ADMIN Aug 08, 2017 IMMUNIZATION ADMIN Oct 04, 2018 SPECIMEN HANDLING Oct 10, 2020 IMMUNIZATION ADMIN Jul 16, 2014 IMMUNIZATION ADMIN Jul 15, 2015 Influenza FLUBOK high dose PURCHASED Jul 06, 2021 IMMUNIZATION ADMIN Jun 28, 2016 THER/PROPH/DIAG INJ, SC/IM Jun 06, 2014 EAR irrigation/lavage Jul 15, 2015 NEBULIZER TREATMENT January 18, 2012 SHINGRIX [facility] [id number] Jun 12, 2018 ADMN PNEUM VACCINE Jun 30, 2020 ROCEPHIN, PER 250MG 2019-10-29 N/A NEBULIZER TREATMENT 2019-10-29 N/A THER/PROPH/DIAG INJ, SC/IM January 18, 2012 Organic Preparation Analyst Phone Consultation February 18, 2022 INFLUENZA 18 YRS TO 64 YRS OLD-STATE SUPPLIED Aug 08, 2017 THER/PROPH/DIAG INJ, SC/IM February 02, 2012 INFLUENZA-Adults ([facility] PURCHASED) Jun 22, 2012 THER/PROPH/DIAG INJ, SC/IM Sep 18, 2018 IMMUNIZATION ADMIN Jun 30, 2020 VENIPUNCTURE IH January 08, 2016 NEBULIZER TREATMENT Oct 29, 2019 RESULTS Name Result Date Reference Range CMP 2021-12-22 BUN 12 7-18 CREAT 0.80 0.55-1.02 CO2 30 21-31 NA 141 136-145 K 4.2 3.5-5.1 CL 105 98-107 GLU 91 70-100 BN/CR 15.0 TP 6.8 6.4-8.2 ALB 3.5 3.4-5.0 GLOB 3.28 A/G 1.1 AST 16 15-37 TBIL 0.2 <=1.2 AGAP 10.8 CA 8.5 8.5-10.1 ALKP 92 50-130 ALT 21 14-59 EGFRAA 86.98 EGFRNAA 71.76 CBC, AUTO DIFF 2021-12-22 WBC 5.8 4.8-10.8 RBC 4.54 3.90-5.03 HGB 13.8 12.0-15.5 HCT 44 36-46 MCV 96.9 81.0-99.0 MCH 30.4 27.1-32.0 MCHC 31 33-36 RDW 13.8 11.6-14.8 PLATELETS 296 150-400 NE# 2.79 1.20-6.70 LY# 1.58 1.20-3.40 MO# 0.43 0.11-0.70 EO# 0.96 0.00-0.70 BA# 0.05 0.00-0.20 NEUT% 48 40-74 LY% 27 19-48 MO% 7.4 3.0-10.0 EO% 16.5 1.0-7.0 BA% 0.9 0.0-2.0 AMYLASE 2021-12-22 GANESH 36 25-115 CPK 2021-08-27 CREATINE KINASE, TOTAL 87 29-143 SED RATE BY MODIFIED WESTERGREN 2021-08-27 SED RATE BY MODIFIED WESTERGREN 2 < OR = 30 LIZZETTE IFA RHEUMATOID ARTHRITIS 2021-08-27 DIAGNOSTIC PANEL WITH REFLEX TITER PATTERN RHEUMATOID FACTOR <14 <14 CYCLIC CITRULLINATED PEPTIDE (CCP) <16 AB (IGG) INTERPRETATION LIZZETTE SCREEN, IFA NEGATIVE NEGATIVE CMP 2021-07-06 GLUCOSE 97 65-99 UREA NITROGEN (BUN) 17 7-25 CREATININE 0.76 0.50-0.99 SODIUM 142 135-146 POTASSIUM 4.6 3.5-5.3 CHLORIDE 105 98-110 CALCIUM 9.2 8.6-10.4 PROTEIN, TOTAL 6.2 6.1-8.1 ALBUMIN 4.0 3.6-5.1 GLOBULIN 2.2 1.9-3.7 ALBUMIN/GLOBULIN RATIO 1.8 1.0-2.5 BILIRUBIN, TOTAL 0.4 0.2-1.2 ALKALINE PHOSPHATASE 77 37-153 AST 18 10-35 ALT 19 6-29 eGFR NON-AFR. MOROCCAN 82 > OR = 60 eGFR 95 > OR = 60 CARBON DIOXIDE 30 20-32 GLOBULIN 2.2 1.9-3.7 BUN/CREATININE RATIO NOT APPLICABLE 6-22 CBC WITH DIFF 2021-07-06 HEMOGLOBIN 13.8 11.7-15.5 HEMATOCRIT 43.0 35.0-45.0 MCH 30.5 27.0-33.0 MCHC 32.1 32.0-36.0 RDW 13.6 11.0-15.0 NEUTROPHILS 56.9 ABSOLUTE NEUTROPHILS 3016 [id number] LYMPHOCYTES 22.9 ABSOLUTE LYMPHOCYTES [phone] MONOCYTES 7.8 ABSOLUTE MONOCYTES 413 200-950 EOSINOPHILS 10.9 ABSOLUTE EOSINOPHILS 578 15-500 BASOPHILS 1.5 ABSOLUTE BASOPHILS 80 0-200 MPV 9.9 7.5-12.5 WHITE BLOOD CELL COUNT 5.3 3.8-10.8 RED BLOOD CELL COUNT 4.52 3.80-5.10 MCV 95.1 80.0-100.0 PLATELET COUNT 294 140-400 LIPID PANEL 2021-07-06 TRIGLYCERIDES 90 <150 CHOLESTEROL, TOTAL 189 <200 HDL CHOLESTEROL 86 > OR = 50 LDL-CHOLESTEROL 85 CHOL/HDLC RATIO 2.2 <5.0 NON HDL CHOLESTEROL 103 <130 CHOLESTEROL, TOTAL 189 <200 Xpert Xpress PCR SARS-CoV-2 Flu 2021-06-15 RSV assay COVID19 negative Influenza A N/A Influenza B N/A RSV N/A Thinprep Imaging and HPV DNA 2021-05-18 reflex HPV 16, 18 CLINICAL INFORMATION: LMP: PREV. PAP: PREV. BX: SOURCE: STATEMENT OF ADEQUACY: INTERPRETATION/RESULT: COMMENT: DISTRIBUTOR ADVERTISING MATERIAL: COMMENT HPV DNA, HIGH RISK, CERVICAL Not Detected NOT DETECTED Xpert Xpress PCR SARS-CoV-2 Flu 2021-05-04 RSV assay COVID19 Neg Influenza A n/a Influenza B n/a RSV n/a NOVEL CORONAVIRUS 2018, PCR, [facility] [place] 2020-10-10 COLOGUARD FITDNA 2020-07-[address] [facility] 2020-07-07 GLUCOSE 95 65-99 UREA NITROGEN (BUN) 20 7-25 CREATININE 0.93 0.50-0.99 SODIUM 141 135-146 POTASSIUM 4.0 3.5-5.3 CHLORIDE 106 98-110 CALCIUM 9.1 8.6-10.4 PROTEIN, TOTAL 6.1 6.1-8.1 ALBUMIN 3.9 3.6-5.1 GLOBULIN 2.2 1.9-3.7 ALBUMIN/GLOBULIN RATIO 1.8 1.0-2.5 BILIRUBIN, TOTAL 0.4 0.2-1.2 ALKALINE PHOSPHATASE 87 37-153 AST 15 10-35 ALT 15 6-29 eGFR NON-AFR. MOROCCAN 64 > OR = 60 eGFR 75 > OR = 60 CARBON DIOXIDE 27 20-32 GLOBULIN 2.2 1.9-3.7 BUN/CREATININE RATIO NOT APPLICABLE 03-17 LIPID PANEL 2020-07-07 TRIGLYCERIDES 107 <150 CHOLESTEROL, TOTAL 186 <200 HDL CHOLESTEROL 73 > OR = 50 LDL-CHOLESTEROL 93 CHOL/HDLC RATIO 2.5 <5.0 NON HDL CHOLESTEROL 113 <130 CHOLESTEROL, TOTAL 186 <200 MAMMOGRAM 2020-07-31 Results: NOVEL CORONAVIRUS 2018, PCR, [facility] [place] 2020-06-23 Xray Cervical Spine With Obliques 2020-01-[address] [facility] 2019-07-04 GLUCOSE 91 65-99 UREA NITROGEN (BUN) 12 7-25 CREATININE 0.71 0.50-0.99 SODIUM 142 135-146 POTASSIUM 4.5 3.5-5.3 CHLORIDE 105 98-110 CALCIUM 9.0 8.6-10.4 PROTEIN, TOTAL 6.0 6.1-8.1 ALBUMIN 4.0 3.6-5.1 GLOBULIN 2.0 1.9-3.7 ALBUMIN/GLOBULIN RATIO 2.0 1.0-2.5 BILIRUBIN, TOTAL 0.4 0.2-1.2 ALKALINE PHOSPHATASE 79 33-130 AST 17 10-35 ALT 18 6-29 eGFR NON-AFR. MOROCCAN 90 > OR = 60 eGFR 104 > OR = 60 CARBON DIOXIDE 30 20-32 GLOBULIN 2.0 1.9-3.7 BUN/CREATININE RATIO NOT APPLICABLE 03-17 LIPID PANEL 2019-07-04 TRIGLYCERIDES 82 <150 CHOLESTEROL, TOTAL 183 <200 HDL CHOLESTEROL 78 >50 LDL-CHOLESTEROL 88 CHOL/HDLC RATIO 2.3 <5.0 NON HDL CHOLESTEROL 105 <130 CHOLESTEROL, TOTAL 183 <200 Xray Ankle Right 2018-11-28 Results: Normal VITAMIN D 1 25 DIHYDROXY LC MS MS 2018-09-05 VITAMIN D, 1,25 (OH)2, TOTAL 32 18- 72 VITAMIN D3, 1,25 (OH)2 32 VITAMIN D2, 1,25 (OH)2 <8 MRI Brain With and Without 2018-09-13 Contrast Result: acute right mastoiditis MAMMOGRAM 2018-07-04 Results: BIRADS1 [facility] 2018-06-12 GLUCOSE 93 65-99 UREA NITROGEN (BUN) 21 7-25 CREATININE 0.74 0.50-0.99 SODIUM 140 135-146 POTASSIUM 4.2 3.5-5.3 CHLORIDE 106 98-110 CALCIUM 9.1 8.6-10.4 PROTEIN, TOTAL 6.2 6.1-8.1 ALBUMIN 4.0 3.6-5.1 GLOBULIN 2.2 1.9-3.7 ALBUMIN/GLOBULIN RATIO 1.8 1.0-2.5 BILIRUBIN, TOTAL 0.4 0.2-1.2 ALKALINE PHOSPHATASE 77 33-130 AST 18 10-35 ALT 19 6-29 eGFR NON-AFR. MOROCCAN 87 > OR = 60 eGFR 101 > OR = 60 CARBON DIOXIDE 23 20-32 GLOBULIN 2.2 1.9-3.7 BUN/CREATININE RATIO NOT APPLICABLE 03-17 LIPID PANEL 2018-06-12 TRIGLYCERIDES 85 <150 CHOLESTEROL, TOTAL 181 <200 HDL CHOLESTEROL 83 >50 LDL-CHOLESTEROL 81 CHOL/HDLC RATIO 2.2 <5.0 NON HDL CHOLESTEROL 98 <130 CHOLESTEROL, TOTAL 181 <200 FOBT 1 CARD IH 2017-06-24 OCCULT BLOOD STOOL NEGATIVE [facility] 2017-04-29 GLUCOSE 90 65-99 UREA NITROGEN (BUN) 15 7-25 CREATININE 0.67 0.50-0.99 SODIUM 139 135-146 POTASSIUM 4.5 3.5-5.3 CHLORIDE 106 98-110 CALCIUM 9.3 8.6-10.4 PROTEIN, TOTAL 6.2 6.1-8.1 ALBUMIN 3.9 3.6-5.1 GLOBULIN 2.3 1.9-3.7 ALBUMIN/GLOBULIN RATIO 1.7 1.0-2.5 BILIRUBIN, TOTAL 0.4 0.2-1.2 ALKALINE PHOSPHATASE 78 33-130 AST 20 10-35 ALT 14 6-29 eGFR NON-AFR. M[place]AN 95 > OR = 60 eGFR 110 > OR = 60 CARBON DIOXIDE 23 20-31 GLOBULIN 2.3 1.9-3.7 BUN/CREATININE RATIO NOT APPLICABLE 03-17 LIPID PANEL 2017-04-29 TRIGLYCERIDES 70 <150 CHOLESTEROL, TOTAL 168 125-200 HDL CHOLESTEROL 72 > OR = 46 LDL-CHOLESTEROL 82 <130 CHOL/HDLC RATIO 2.3 < OR = 5.0 NON HDL CHOLESTEROL 96 CHOLESTEROL, TOTAL 168 125-200 URIC ACID 2017-04-29 URIC ACID 5.7 2.5-7.0 LIZZETTE IFA RHEUMATOID ARTHRITIS 2017-04-29 DIAGNOSTIC PANEL WITH REFLEX TITER PATTERN RHEUMATOID FACTOR 11 <14 CYCLIC CITRULLINATED PEPTIDE (CCP) <16 AB (IGG) INTERPRETATION LIZZETTE SCREEN, IFA NEGATIVE NEGATIVE HEPATITIS C ANTIBODY /WITH REFLEX 2017-04-29 TO HCV RNA QUANTITATIVE REAL TIME PCR HEPATITIS C ANTIBODY NON-REACTIVE NON-REACTIV E SIGNAL TO CUT-OFF 0.01 <1.00 Xray Foot Right 2017-04-15 Results: CBC WITH DIFF 2016-10-04 HEMOGLOBIN 13.3 11.7-15.5 HEMATOCRIT 39.3 35.0-45.0 MCH 30.5 27.0-33.0 MCHC 33.9 32.0-36.0 RDW 13.4 11.0-15.0 NEUTROPHILS 39.6 ABSOLUTE NEUTROPHILS 2138 3470-1845 LYMPHOCYTES 44.9 ABSOLUTE LYMPHOCYTES 2425 850-3900 MONOCYTES 9.4 ABSOLUTE MONOCYTES 508 200-950 EOSINOPHILS 5.0 ABSOLUTE EOSINOPHILS 270 15-500 BASOPHILS 1.1 ABSOLUTE BASOPHILS 59 0-200 MPV 7.9 7.5-11.5 WHITE BLOOD CELL COUNT 5.4 3.8-10.8 RED BLOOD CELL COUNT 4.37 3.80-5.10 MCV 90.0 80.0-100.0 PLATELET COUNT 379 140-400 MONO SPOT TEST 2016-10-04 HETEROPHILE, MONO SCREEN NEGATIVE NEGATIV E MUMPS VIRUS RNA QL REAL TIME PCR 2016-10-04 MUMPS VIRUS RNA, QL REAL TIME PCR NOT DETECTED MUMPS VIRUS ANTIBODY (IGM) 2016-09-28 MUMPS VIRUS ANTIBODY (IGM) <1:20 <1:20 STREPTOCOCCUS GROUP A CULTURE 2016-09-28 THROAT STREPTOCOCCUS, GROUP A CULTURE SEE NOTE CBC WITH DIFF 2016-09-28 HEMOGLOBIN 13.8 11.7-15.5 HEMATOCRIT 41.0 35.0-45.0 MCH 31.0 27.0-33.0 MCHC 33.8 32.0-36.0 RDW 13.6 11.0-15.0 NEUTROPHILS 66.6 ABSOLUTE NEUTROPHILS 5794 0811-4179 LYMPHOCYTES 21.5 ABSOLUTE LYMPHOCYTES [phone] MONOCYTES 7.7 ABSOLUTE MONOCYTES 670 200-950 EOSINOPHILS 3.3 ABSOLUTE EOSINOPHILS 287 15-500 BASOPHILS 0.9 ABSOLUTE BASOPHILS 78 0-200 MPV 8.2 7.5-11.5 WHITE BLOOD CELL COUNT 8.7 3.8-10.8 RED BLOOD CELL COUNT 4.47 3.80-5.10 MCV 91.7 80.0-100.0 PLATELET COUNT 356 140-400 MONO SPOT TEST 2016-09-28 HETEROPHILE, MONO SCREEN NEGATIVE NEGATIV E GLUCOSE 2016-01-08 GLUCOSE 109 65-99 TSH THYROID STIMULATING HORMONE 2016-01-08 TSH 1.39 0.40-4.50 VITAMIN B12 2016-01-08 VITAMIN B12 [phone] BMP 2015-08-14 GLUCOSE 81 65-99 CREATININE 0.60 0.50-0.99 eGFR NON-AFR. M[place]OCCAN 99 > OR = 60 eGFR 115 > OR = 60 UREA NITROGEN (BUN) 15 7-25 SODIUM 138 135-146 POTASSIUM 3.8 3.5-5.3 CHLORIDE 101 98-110 CARBON DIOXIDE 27 19-30 CALCIUM 9.4 8.6-10.4 BUN/CREATININE RATIO NOT APPLICABLE 6-22 CBC WITH DIFF 2015-08-14 HEMOGLOBIN 13.6 11.7-15.5 HEMATOCRIT 41.9 35.0-45.0 MCH 31.5 27.0-33.0 MCHC 32.5 32.0-36.0 RDW 12.7 11.0-15.0 NEUTROPHILS 42.1 ABSOLUTE NEUTROPHILS 1895 0490-0526 LYMPHOCYTES 39.6 ABSOLUTE LYMPHOCYTES [phone] MONOCYTES 7.3 ABSOLUTE MONOCYTES 329 200-950 EOSINOPHILS 9.7 ABSOLUTE EOSINOPHILS 437 15-500 BASOPHILS 1.3 ABSOLUTE BASOPHILS 59 0-200 MPV 8.4 7.5-11.5 WHITE BLOOD CELL COUNT 4.5 3.8-10.8 RED BLOOD CELL COUNT 4.33 3.80-5.10 MCV 97.0 80.0-100.0 PLATELET COUNT 267 140-400 FSH 2015-07-15 FSH <0.7 MRI Knee Left Result: MAMMOGRAM 2015-05-15 Results: CMP 2015-04-25 GLUCOSE 82 65-99 UREA NITROGEN (BUN) 13 7-25 CREATININE 0.70 0.50-1.05 SODIUM 137 135-146 POTASSIUM 4.4 3.5-5.3 CHLORIDE 102 98-110 CALCIUM 9.2 8.6-10.4 PROTEIN, TOTAL 6.8 6.1-8.1 ALBUMIN 4.0 3.6-5.1 GLOBULIN 2.8 1.9-3.7 ALBUMIN/GLOBULIN RATIO 1.4 1.0-2.5 BILIRUBIN, TOTAL 0.4 0.2-1.2 ALKALINE PHOSPHATASE 58 33-130 AST 19 10-35 ALT 13 6-29 eGFR NON-AFR. MOROCCAN 95 > OR = 60 eGFR 110 > OR = 60 CARBON DIOXIDE 27 19-30 GLOBULIN 2.8 1.9-3.7 BUN/CREATININE RATIO NOT APPLICABLE 03-17 LIPID PANEL 2015-04-25 TRIGLYCERIDES 150 <150 CHOLESTEROL, TOTAL 175 125-200 HDL CHOLESTEROL 85 > OR = 46 LDL-CHOLESTEROL 60 <130 CHOL/HDLC RATIO 2.1 < OR = 5.0 NON HDL CHOLESTEROL 90 CHOLESTEROL, TOTAL 175 125-200 TSH THYROID STIMULATING HORMONE 2015-04-25 TSH 1.89 0.40-4.50 THINPREP PAP AND HR HPV DNA 2015-04-24 HPV DNA (HIGH RISK) NOT DETECTED NOT DETECTED SOURCE: NONE GIVEN CLINICAL INFORMATION: NONE GIVEN LMP: . PREV. PAP: NONE GIVEN PREV. BX: NONE GIVEN STATEMENT OF ADEQUACY: INTERPRETATION/RESULT: DISTRIBUTOR ADVERTISING MATERIAL: MAMMOGRAM 2015-05-15 Results: Xray Knee Left [address] [facility] 2013-11-19 GLUCOSE 81 65-99 UREA NITROGEN (BUN) 19 7-25 CREATININE 0.65 0.50-1.05 SODIUM 142 135-146 POTASSIUM 4.3 3.5-5.3 CHLORIDE 109 98-110 CALCIUM 8.5 8.6-10.4 PROTEIN, TOTAL 6.6 6.1-8.1 ALBUMIN 3.9 3.6-5.1 GLOBULIN 2.7 1.9-3.7 ALBUMIN/GLOBULIN RATIO 1.4 1.0-2.5 BILIRUBIN, TOTAL 0.3 0.2-1.2 ALKALINE PHOSPHATASE 53 33-130 AST 21 10-35 ALT 15 6-29 eGFR NON-AFR. MOROCCAN 98 > OR = 60 eGFR 113 > OR = 60 CARBON DIOXIDE 22 19-30 GLOBULIN 2.7 1.9-3.7 BUN/CREATININE RATIO NOT APPLICABLE 03-17 LIPID PANEL 2013-11-19 TRIGLYCERIDES 117 <150 CHOLESTEROL, TOTAL 184 125-200 HDL CHOLESTEROL 86 > OR = 46 LDL-CHOLESTEROL 75 <130 CHOL/HDLC RATIO 2.1 < OR = 5.0 NON HDL CHOLESTEROL 98 CHOLESTEROL, TOTAL 184 125-200 TSH THYROID STIMULATING HORMONE 2013-11-19 TSH 1.60 0.40-4.50 TSH THYROID STIMULATING HORMONE 2013-04-06 THYROID STIMULATING HORMONE 1.66 0.45 -6.20 CMP 2013-04-02 GLUCOSE 85 70-110 BUN 16 8-26 CREAT 0.64 0.6-1.3 NA 137 135-148 POTASSIUM 4.4 3.6-5.2 CL 101 100-108 CALCIUM 8.7 8.5-10.5 TOTAL PROTEIN 6.6 6.4-8.2 ALB 3.6 3.4-5.0 A/G RAT 1.2 1.1-1.8 T. BILI 0.5 0.4-2.0 ALK PHOS 52 38-126 SGOT/AST 19 15-37 SGPT/ALT 13 14-54 GFR >60 CO2 27.8 21-32 ANION GP 12.6 BUN/CREA 25.0 12-20 LIPID PANEL 2013-04-02 TRIGLYCERIDES 68 30-200 HDL CHOL 53 40-60 LDL CALCULATED 95 -130 RISK 3.1 CHOLESTEROL 162 -200 TSH THYROID STIMULATING HORMONE 2013-04-02 THYROID STIMULATING HORMONE 2.72 0.45 -6.20 MAMMOGRAM Results: PAP SMEAR THINPREP WITH HR HPV DNA HPV DNA (HIGH RISK) SOURCE: REPORT STATUS: CLINICAL INFORMATION: LMP: PREV. PAP: PREV. BX: STATEMENT OF ADEQUACY: GENERAL CATEGORIZATION: INTERPRETATION/RESULT: COMMENT: DISTRIBUTOR ADVERTISING MATERIAL: REVIEW DISTRIBUTOR ADVERTISING MATERIAL: PATHOLOGIST: INFECTION: Date of collection FSH 2012-10-03 FSH 2.1 LIPID PANEL LDL (CALCULATED) CHOLESTEROL TRIGLYCERIDES LDL HDL RISK [place] NON-HDL CHOLESTEROL CHOLESTEROL CHOLESTEROL RISK TRIGLYCERIDES HDL LDL VLDL CHOLESTEROL CALCULATED CMP AGAP ALKP ALT CA EGFRAA EGFRNAA A/G RATIO ALBUMIN ALK. PHOSPHATASE ALT(SGPT) ANION GAP AST (SGOT) BUN/CRE2 BUN/CREAT RATIO CALCIUM CHLORIDE CREATININE CREATININE GFR GFR GLOBULIN GLUCOSE POTASSIUM SODIUM TOTAL BILIRUBIN TOTAL PROTEIN GLUCOSE BUN CREATININE SODIUM POTASSIUM CHLORIDE CARBON DIOXIDE CALCIUM ANION GP BUN/CREATININE RATIO eGFR NON-AFR. M[place]AN AST/SGOT ALT/SGPT ALKALINE PHOSPHATASE BILIRUBIN TOTAL ALBUMIN PROTEIN TOTAL ALBUMIN/GLOBULIN RATIO eGFR ALBUMIN ALBUMIN/GLOBULIN RATIO ALKALINE PHOSPHATASE BILIRUBIN TOTAL BUN/CREATININE RATIO CALCIUM CARBON DIOXIDE CREATININE GLOBULIN GFR GLUCOSE POTASSIUM PROTEIN TOTAL POTASSIUM SODIUM A/G RAT AST/SGOT SODIUM PROTEIN TOTAL BUN CHLORIDE ALT/SGPT GLUCOSE BILIRUBIN TOTAL ALBUMIN PROTEIN TOTAL ALBUMIN BUN BILIRUBIN TOTAL CALCIUM CREATININE ALKALINE PHOSPHATASE AST/SGOT ALT/SGPT CARBON DIOXIDE BUN/CREATININE RATIO GLOBULIN A/G RATIO BUN/CREATININE RATIO ALKALINE PHOSPHATASE GLOBULIN AST/SGOT eGFR BUN CALCIUM CHLORIDE eGFR NON- CREATININE CARBON DIOXIDE GLUCOSE SODIUM POTASSIUM ALT/SGPT COMMENT Fasting Lipids CMP AGAP ALKP ALT CA EGFRAA EGFRNAA A/G RATIO ALBUMIN ALK. PHOSPHATASE ALT(SGPT) ANION GAP AST (SGOT) BUN/CRE2 BUN/CREAT RATIO CALCIUM CHLORIDE CREATININE CREATININE GFR GFR GLOBULIN GLUCOSE POTASSIUM SODIUM TOTAL BILIRUBIN TOTAL PROTEIN GLUCOSE BUN CREATININE SODIUM POTASSIUM CHLORIDE CARBON DIOXIDE CALCIUM ANION GP BUN/CREATININE RATIO eGFR NON-AFR. M[place]AN AST/SGOT ALT/SGPT ALKALINE PHOSPHATASE BILIRUBIN TOTAL ALBUMIN PROTEIN TOTAL ALBUMIN/GLOBULIN RATIO eGFR ALBUMIN ALBUMIN/GLOBULIN RATIO ALKALINE PHOSPHATASE BILIRUBIN TOTAL BUN/CREATININE RATIO CALCIUM CARBON DIOXIDE CREATININE GLOBULIN GFR GLUCOSE POTASSIUM PROTEIN TOTAL POTASSIUM SODIUM A/G RAT AST/SGOT SODIUM PROTEIN TOTAL BUN CHLORIDE ALT/SGPT GLUCOSE BILIRUBIN TOTAL ALBUMIN PROTEIN TOTAL ALBUMIN BUN BILIRUBIN TOTAL CALCIUM CREATININE ALKALINE PHOSPHATASE AST/SGOT ALT/SGPT CARBON DIOXIDE BUN/CREATININE RATIO GLOBULIN A/G RATIO BUN/CREATININE RATIO ALKALINE PHOSPHATASE GLOBULIN AST/SGOT eGFR BUN CALCIUM CHLORIDE eGFR NON- CREATININE CARBON DIOXIDE GLUCOSE SODIUM POTASSIUM ALT/SGPT COMMENT TSH WITH REFLEX TSH TSH T4 FREE TSH W/REFLEX TO FT4 CBC WITH DIFF ABSOLUTE PLASMA CELLS ABSOLUTE PROLYMPHOCYTES PLASMA CELLS PROLYMPHOCYTES COMMENT WBC RBC HGB HEMOGLOBIN HCT HEMATOCRIT MCV MCH MCHC RDW PLT NEUT % LYMPH % MONO % EOSIN % BASO % ABSOLUTE REACTIVE LYMPHOCYTES NEUT ABS LYMPH ABS MONO ABS EOSIN ABS BASO ABS MAN DIFF PLT EST ANISO POIK CBC MORPHOLOGY COMMENT CONTAINER TYPE: FINAL RESOLUTION MESSAGE: NOTE QUESTION/PROBLEM ATYP LYM BANDS BASO NEUT EOSIN BAND NEUTROPHILS ABSOLUTE BAND NEUTROPHILS HYPO LYMPH METAMYELOCYTES ABSOLUTE METAMYELOCYTES MYELOCYTES ABSOLUTE MYELOCYTES MACRO PROMYELOCYTES ABSOLUTE PROMYELOCYTES MCHC LYMPHOCYTES METAS % REACTIVE LYMPHOCYTES ABSOLUTE LYMPHOCYTES MICRO MON MONOCYTES EOSINOPHILS MONO ABS BASOPHILS ABSOLUTE BASOPHILS NEUT ABS BLASTS NRBC ABSOLUTE BLASTS NUCLEATED RBC ABSOLUTE NUCLEATED RBC COMMENT(S) MPV RBCMORPH IMM CELL DIFFSCN MCH CBC WITH DIFF ABSOLUTE PLASMA CELLS ABSOLUTE PROLYMPHOCYTES PLASMA CELLS PROLYMPHOCYTES COMMENT WBC RBC HGB HEMOGLOBIN HCT HEMATOCRIT MCV MCH MCHC RDW PLT NEUT % LYMPH % MONO % EOSIN % BASO % ABSOLUTE REACTIVE LYMPHOCYTES NEUT ABS LYMPH ABS MONO ABS EOSIN ABS BASO ABS MAN DIFF PLT EST ANISO POIK CBC MORPHOLOGY COMMENT CONTAINER TYPE: FINAL RESOLUTION MESSAGE: NOTE QUESTION/PROBLEM ATYP LYM BANDS BASO NEUT EOSIN BAND NEUTROPHILS ABSOLUTE BAND NEUTROPHILS HYPO LYMPH METAMYELOCYTES ABSOLUTE METAMYELOCYTES MYELOCYTES ABSOLUTE MYELOCYTES MACRO PROMYELOCYTES ABSOLUTE PROMYELOCYTES MCHC LYMPHOCYTES METAS % REACTIVE LYMPHOCYTES ABSOLUTE LYMPHOCYTES MICRO MON MONOCYTES EOSINOPHILS MONO ABS BASOPHILS ABSOLUTE BASOPHILS NEUT ABS BLASTS NRBC ABSOLUTE BLASTS NUCLEATED RBC ABSOLUTE NUCLEATED RBC COMMENT(S) MPV RBCMORPH IMM CELL DIFFSCN MCH CMP AGAP ALKP ALT CA EGFRAA EGFRNAA A/G RATIO ALBUMIN ALK. PHOSPHATASE ALT(SGPT) ANION GAP AST (SGOT) BUN/CRE2 BUN/CREAT RATIO CALCIUM CHLORIDE CREATININE CREATININE GFR GFR GLOBULIN GLUCOSE POTASSIUM SODIUM TOTAL BILIRUBIN TOTAL PROTEIN GLUCOSE BUN CREATININE SODIUM POTASSIUM CHLORIDE CARBON DIOXIDE CALCIUM ANION GP BUN/CREATININE RATIO eGFR NON-AFR. [place]AN AST/SGOT ALT/SGPT ALKALINE PHOSPHATASE BILIRUBIN TOTAL ALBUMIN PROTEIN TOTAL ALBUMIN/GLOBULIN RATIO eGFR ALBUMIN ALBUMIN/GLOBULIN RATIO ALKALINE PHOSPHATASE BILIRUBIN TOTAL BUN/CREATININE RATIO CALCIUM CARBON DIOXIDE CREATININE GLOBULIN GFR GLUCOSE POTASSIUM PROTEIN TOTAL POTASSIUM SODIUM A/G RAT AST/SGOT SODIUM PROTEIN TOTAL BUN CHLORIDE ALT/SGPT GLUCOSE BILIRUBIN TOTAL ALBUMIN PROTEIN TOTAL ALBUMIN BUN BILIRUBIN TOTAL CALCIUM CREATININE ALKALINE PHOSPHATASE AST/SGOT ALT/SGPT CARBON DIOXIDE BUN/CREATININE RATIO GLOBULIN A/G RATIO BUN/CREATININE RATIO ALKALINE PHOSPHATASE GLOBULIN AST/SGOT eGFR BUN CALCIUM CHLORIDE eGFR NON- CREATININE CARBON DIOXIDE GLUCOSE SODIUM POTASSIUM ALT/SGPT COMMENT CMP 2011-11-19 AGAP ALKP ALT CA EGFRAA EGFRNAA A/G RATIO ALBUMIN ALK. PHOSPHATASE ALT(SGPT) ANION GAP AST (SGOT) BUN/CRE2 BUN/CREAT RATIO CALCIUM CHLORIDE CREATININE CREATININE GFR GFR GLOBULIN GLUCOSE POTASSIUM SODIUM TOTAL BILIRUBIN TOTAL PROTEIN GLUCOSE BUN CREATININE SODIUM POTASSIUM CHLORIDE CARBON DIOXIDE CALCIUM ANION GP BUN/CREATININE RATIO eGFR NON-AFR. [place] AST/SGOT ALT/SGPT ALKALINE PHOSPHATASE BILIRUBIN TOTAL ALBUMIN PROTEIN TOTAL ALBUMIN/GLOBULIN RATIO eGFR ALBUMIN ALBUMIN/GLOBULIN RATIO ALKALINE PHOSPHATASE BILIRUBIN TOTAL BUN/CREATININE RATIO CALCIUM CARBON DIOXIDE CREATININE GLOBULIN GFR GLUCOSE POTASSIUM PROTEIN TOTAL POTASSIUM SODIUM A/G RAT AST/SGOT SODIUM PROTEIN TOTAL BUN CHLORIDE ALT/SGPT GLUCOSE BILIRUBIN TOTAL ALBUMIN PROTEIN TOTAL ALBUMIN BUN BILIRUBIN TOTAL CALCIUM CREATININE ALKALINE PHOSPHATASE AST/SGOT ALT/SGPT CARBON DIOXIDE BUN/CREATININE RATIO GLOBULIN A/G RATIO BUN/CREATININE RATIO ALKALINE PHOSPHATASE GLOBULIN AST/SGOT eGFR BUN CALCIUM CHLORIDE eGFR NON- CREATININE CARBON DIOXIDE GLUCOSE SODIUM POTASSIUM ALT/SGPT COMMENT CBC WITH DIFF 2011-11-19 ABSOLUTE PLASMA CELLS ABSOLUTE PROLYMPHOCYTES PLASMA CELLS PROLYMPHOCYTES COMMENT WBC RBC HGB HEMOGLOBIN HCT HEMATOCRIT MCV MCH MCHC RDW PLT NEUT % LYMPH % MONO % EOSIN % BASO % ABSOLUTE REACTIVE LYMPHOCYTES NEUT ABS LYMPH ABS MONO ABS EOSIN ABS BASO ABS MAN DIFF PLT EST ANISO POIK CBC MORPHOLOGY COMMENT CONTAINER TYPE: FINAL RESOLUTION MESSAGE: NOTE QUESTION/PROBLEM ATYP LYM BANDS BASO NEUT EOSIN BAND NEUTROPHILS ABSOLUTE BAND NEUTROPHILS HYPO LYMPH METAMYELOCYTES ABSOLUTE METAMYELOCYTES MYELOCYTES ABSOLUTE MYELOCYTES MACRO PROMYELOCYTES ABSOLUTE PROMYELOCYTES MCHC LYMPHOCYTES METAS % REACTIVE LYMPHOCYTES ABSOLUTE LYMPHOCYTES MICRO MON MONOCYTES EOSINOPHILS MONO ABS BASOPHILS ABSOLUTE BASOPHILS NEUT ABS BLASTS NRBC ABSOLUTE BLASTS NUCLEATED RBC ABSOLUTE NUCLEATED RBC COMMENT(S) MPV RBCMORPH IMM CELL DIFFSCN MCH COLONOSCOPY 2010-05-05 NOTES: RESULTS: Negative Exam Pap Smear General Categorization THINPREP PAP AND HR HPV DNA COMMENT HPV DNA (HIGH RISK) INTERPRETATION/RESULT: SOURCE: REPORT STATUS: CLINICAL INFORMATION: LMP: PREV. PAP: PREV. BX: STATEMENT OF ADEQUACY: GENERAL CATEGORIZATION: COMMENT: DISTRIBUTOR ADVERTISING MATERIAL: REVIEW DISTRIBUTOR ADVERTISING MATERIAL: PATHOLOGIST: INFECTION: X COLLECTION DATE MAMMOGRAM Results: DEXA RESULTS: REASON FOR VISIT Insurance Providers Health Health Health Health Health Member Patient Patient Patient Patient Patient Subscriber Subscriber Subscriber Group Insurance Plan Plan Plan Plan ID Relationship Address Phone Name Date of ID Name Date of No Type Insurance Insurance Insurance Coverage to Subscriber Address Phone Name Dates ANTHEM [phone] ANTHEM self Lindy [id number] BC/[place] 58 BC/BS [phone] [place] [address] ANTHEM [phone] ANTHEM self Lindy [id number] BC/BS [place] 58 BC/BS [place] [address] [place] [address] ANTHEM [phone] ANTHEM self Lindy [id number] BC/BS [place] 58 BC/BS [place] [address] [place] [address] [employer] [phone] [place] self Lindy [id number] [place] [address] [place] [id number] [place] [id number] MEDICAL (GENERAL) HISTORY Type Description Date Medical History Meniere's disease Medical History Restless leg syndrome Medical History Bilateral Plantar Fascitis Medical History Left trochantric bursitis 10/2007 Medical History Hypercholesterolemia Medical History Degenerative Disc Disease of C Spine wit h moderate foraminal narrowing @ C 5-C6-C7 Surgical History Right Endolymphic Shunt 12/1988 Surgical History Tonsillectomy & Adnoidectomy 1980 Surgical History Right shoulder surgery Surgical History 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
== END ==
PROVIDERS: PCP Nurse Practitioner; Visit Provider Physician Assistant Medical
DX: J98.11 Atelectasis
CPT/HCPCS: 71046; 71100

== ENCOUNTER 2022-07-08 09:58 | Outpatient (REF) | payer BC, SELFPAY | END 2022-07-08 09:59 | disposition home or self-care (01) | LOC: NCHCN 09:58 | PROVIDERS: PCP Nurse Practitioner; Visit Provider Nurse Practitioner | DX: N39.0 Urinary tract infection, site not specified (principal) | CPT/HCPCS: 87086 ==

== ENCOUNTER 2022-09-02 09:51 | Emergency (ER) | payer BC, SELFPAY ==
[2022-09-02 10:06] VITALS: BP 127/51; PULSE 94; RESP 16; TEMP 36.3; O2SAT 97
--- NOTE | 2022-09-02 10:15 | DI.RAD_ITS ---
Exam(s) XR CHEST 2V PA LATERAL EXAM: XR CHEST 2V PA LATERAL CLINICAL HISTORY: productive cough x 3 weeks TECHNIQUE: 2D digital imaging was performed of the chest. Two images were obtained. PA and lateral views were obtained. COMPARISON: CR XR RIBS RT W PA LAT CHEST from 03/11/2022 FINDINGS: MEDIASTINUM: Normal. HEART: Normal. PULMONARY VASCULATURE: Normal. LUNGS: Clear. PLEURAL SPACE: No pleural effusion or pneumothorax. BONE:Within normal limits for the patient's age. Anterior fusion at the cervical thoracic junction. OTHER FINDINGS:Normal. IMPRESSION: No acute pulmonary findings. DATA REPOSITORY: RADIATION DOSE DELIVERED:
--- NOTE | 2022-09-02 10:47 | W.ED.GENAD ---
Discharge Plan Disposition Patient Disposition: Home Condition: Stable Discharge Details Clinical Impression: Cough Primary Care Provider: Evelyne Maloney ED Provider: Eliazar Peters Home Meds and New Rx's Prescriptions: Continued clonazepam [Klonopin] 0.5 mg Tablet 0.5 mg PO DAILY PRN Discharge Instructions Instructions: Acute Cough (ED) Additional Instructions: Chest x-ray is clear. Negative flu and COVID. Likely lingering a viral cough. Please treat symptoms with [id number] medication as directed. Watch for new or worsening symptoms and return to the ER for any concerns. Lastly, please contact your primary care provider to make them aware of your ER visit, ongoing symptoms, and need for outpatient reevaluation. Medical Decision Making 67-year-old female, non-smoker, presents to the ER for evaluation of ongoing cough for about 3 weeks. Has been on prednisone and 2 separate antibiotics, unsure of the name. She has no additional symptoms. Clinically she appears well, nontoxic, pulse in the 90s, afebrile, O2 sat 97% on room air. Plan to obtain POC COVID and flu as well as a chest x-ray. Flu and COVID-negative Chest x-ray unremarkable Discussed findings with patient, likely lingering of viral cough. No clear indication for additional antibiotics or prednisone. We discussed [id number] treatment for symptomatic control Standard discharge and return precautions were provided. Patient understands, is agreeable to this plan, and has no additional questions or concerns upon discharge. This documentation was generated using [employer] dictation system, please disregard any oddities of phrase or misspellings. Medical Records Medical records reviewed: Yes I reviewed the patient's medical records. Imaging Data Radiologic Study: Attestation: I personally reviewed and interpreted this imaging study as follows: Imaging: X-Ray Radiologist's impression: Exam(s) XR CHEST 2V PA LATERAL EXAM: XR CHEST 2V PA LATERAL CLINICAL HISTORY: productive cough x 3 weeks TECHNIQUE: 2D digital imaging was performed of the chest. Two images were obtained. PA and lateral views were obtained. COMPARISON: CR XR RIBS RT W PA LAT CHEST from 03/11/2022 FINDINGS: MEDIASTINUM: Normal. HEART: Normal. PULMONARY VASCULATURE: Normal. LUNGS: Clear. PLEURAL SPACE: No pleural effusion or pneumothorax. BONE:Within normal limits for the patient's age. Anterior fusion at the cervical thoracic junction. OTHER FINDINGS:Normal. IMPRESSION: No acute pulmonary findings. Lab Data Lab results reviewed: Yes I reviewed the patient's lab results. Labs: Negative flu and COVID Sign Out No HPI General Mode of arrival: ambulatory. Date/Time Provider Initiated Documentation: 09/02/22 10:13. Limitations to Documentation: no limitations. Information obtained by: patient. HPI Narrative: 67-year-old female, denies significant pathological history, non-smoker, presents to the ER for evaluation of a persistent cough, somewhat productive for the past 3 weeks. She has been evaluated, tested negative for COVID and flu, but has not had a chest x-ray. Reports 2 separate episodes of prednisone and antibiotics. Denies fever, chest pain, shortness of breath, abdominal pain, nausea, vomiting. Patient states that she is simply not getting better. Related Data Home Medications Medication Instructions Recorded Confirmed clonazepam 0.5 mg tablet (Klonopin) 0.5 mg PO DAILY PRN 02/09/21 09/02/22 Allergies Allergy/AdvReac Type Severity Reaction Status Date / Time promethazine [From Phenergan] AdvReac Psychosis Unverified 09/02/22 10:11 General Stated Complaint: RespSymp KERVIN: 4 Review of Systems Constitutional Constitutional: Denies fever(s) ENT Ears, Nose, Mouth, and Throat: Denies sore throat Cardiovascular Cardiovascular: Denies chest pain and Denies dyspnea Respiratory Respiratory: Reports cough and Denies dyspnea Gastrointestinal Gastrointestinal: Denies abdominal pain, Denies nausea and Denies vomiting Musculoskeletal Musculoskeletal: Denies myalgias PFSH All Active Problems (Updated 09/02/22 @ 11:48 by RODERICK Ortiz) Contusion of hand, left (Acute) Cough (Acute) Social History Smoking/Tobacco Use Status: Never Smoking risk assessment performed?: Yes Alcohol Intake: never Drug use: Never Substance use type: does not use Do you feel safe at home: Yes Do you feel safe in your relationship?: Yes Exam Const General: cooperative, healthy appearing, comfortable and no acute distress Orientation: alert and awake [facility] Head: normal to inspection, normocephalic and atraumatic Face and sinus: normal facial exam Mouth: moist mucous membranes Eyes General: appearance normal, both eyes and all related structures Conjunctivae: conjunctivae normal Neck Neck: normal visual inspection, full ROM, no meningeal signs, trachea midline and supple Resp Effort & Inspection: normal respiratory effort, able to speak in complete sentences and cough Auscultation: clear to auscultation bilaterally Cardio Rate: regular rate Rhythm: regular rhythm GI Palpation: soft and nontender Skin General skin exam: no rashes or lesions noted Neuro General: patient alert, patient awake, moves all extremities and no focal motor deficits Sensory Exam: no sensory deficits noted Extrem General: normal to inspection, full ROM, no pedal edema and no calf tenderness Psych Appearance: grossly normal Mental Status: mental status grossly normal Course Vital Signs Vital signs: Vital Signs Temperature 36.3 C L 09/02/22 10:06 Pulse 94 H 09/02/22 10:06 Respiratory Rate 16 09/02/22 10:06 Blood Pressure 127/51 L 09/02/22 10:06 Pulse Oximetry 97 09/02/22 10:06 Temperature 36.3 C L 09/02/22 10:06 Temperature Source Temporal Artery Scan 09/02/22 10:06 Pulse 94 H 09/02/22 10:06 Respiratory Rate 16 09/02/22 10:06 Respiratory Effort 09/02/22 10:10 Respiratory Depth Normal 09/02/22 10:10 Blood Pressure 127/51 L 09/02/22 10:06 Blood Pressure Position Sitting 09/02/22 10:06 Pulse Oximetry 97 09/02/22 10:06 Oxygen Delivery Method Room Air 09/02/22 10:06 Oxygen Flow Rate 0 09/02/22 10:06 Pain Level 0 09/02/22 10:06
== END 2022-09-02 11:52 | disposition home or self-care (01) ==
PROVIDERS: Emergency Provider Physician Assistant; PCP Nurse Practitioner
DX: R05.9 Cough, unspecified (principal); Z20.822 Contact with and (suspected) exposure to COVID-19
CPT/HCPCS: 99283; 71046; 99282

== ENCOUNTER → 2023-06-28 14:58 | Outpatient (BNVA) | payer MEDICARE, OTHER, SELFPAY | PROVIDERS: PCP Nurse Practitioner; Referring Provider Nurse Practitioner; Visit Provider Nurse Practitioner Adult Health | DX: G31.84 Mild cognitive impairment of uncertain or unknown etiology (principal); F39 Unspecified mood [affective] disorder; G47.30 Sleep apnea, unspecified | CPT/HCPCS: 99213 ==

== ENCOUNTER 2023-07-20 03:56 | Outpatient (CLI) | payer MEDICARE, OTHER, SELFPAY ==
[2023-07-20 09:21] LABS: Vitamin D 25 Total 62.9 ng/mL (30-100)
[2023-07-20 09:23] LABS: ALT 39 U/L (14-59); AST 26 U/L (15-37); Albumin 3.6 g/dL (3.4-5.0); Alkaline Phosphatase 102 U/L (46-116); Anion Gap 8.8 mmol/L (3-11); BUN 20 mg/dL (7-18); Bilirubin, Total 0.3 mg/dL (0.2-1.0); CO2 27.2 mmol/L (21.0-32.0); CREATININE 0.8 mg/dL (0.55-1.02); Calcium 9.4 mg/dL (8.5-10.1); Calculated LDL 112 mg/dL (<100); Chloride 106 mmol/L (98-107); Cholesterol 215 mg/dL (<200); Estimated GFR 80.21 (mL/min/1.73m2); Glucose 112 mg/dL (74-106); HDL Cholesterol 84 mg/dL (40-60); Potassium 4.3 mmol/L (3.5-5.1); Sodium 142 mmol/L (136-145); TSH (W/Ref FT4) 1.84 uIU/mL (0.36-3.74); Total Protein 6.9 g/dL (6.4-8.2); Triglyceride 96 mg/dL (<150); Vitamin B12 436 pg/mL (193-986)
[2023-07-20 09:24] LABS: Folate > 20.0 ng/mL (8.6-20.0)
== END 2023-07-20 03:57 | disposition home or self-care (01) ==
LOC: LBO 03:56
PROVIDERS: PCP Nurse Practitioner; Visit Provider Nurse Practitioner
DX: E78.5 Hyperlipidemia, unspecified (principal); R53.83 Other fatigue; G31.84 Mild cognitive impairment of uncertain or unknown etiology; R79.89 Other specified abnormal findings of blood chemistry
CPT/HCPCS: 36415; 80053; 80061; 82306; 82607; 82746; 84443

== ENCOUNTER 2023-09-06 07:48 | Emergency (ER) | payer MEDICARE, SELFPAY ==
[2023-09-06 07:58] VITALS: BP 135/76; PULSE 84; RESP 16; O2SAT 94
--- NOTE | 2023-09-06 08:20 | W.ED.GENAD ---
Discharge Plan Disposition Patient Disposition: Home Condition: Good Discharge Details Clinical Impression: Acute knee pain, Closed tibial fracture Primary Care Provider: Evelyne Maloney ED Provider: Sweta Huntley Home Meds and New Rx's Prescriptions: Continued bupropion HCl 200 mg tablet sustained-release 12 hr 200 mg PO DAILY escitalopram oxalate 20 mg tablet 30 mg PO DAILY fluticasone propionate 50 mcg/actuation spray,suspension 1 spray intranasal Q12H Rx Instructions: administer into each nostril magnesium oxide 400 mg magnesium capsule 400 mg PO DAILY meclizine 25 mg tablet 25 mg PO TID PRN polyethylene glycol 3350 [Miralax] 17 gram/dose powder 17 g PO DAILY PRN pantoprazole 40 mg tablet,delayed release (DR/EC) 40 mg PO DAILY cholecalciferol (vitamin D3) 125 mcg (5,000 unit) capsule 125 mcg PO DAILY loratadine [Allergy Relief (loratadine)] 10 mg tablet 10 mg PO DAILY memantine 5 mg tablet 5 mg PO BID clonazepam [Klonopin] 0.5 mg Tablet 0.5 mg PO DAILY PRN albuterol sulfate 90 mcg/actuation HFA aerosol inhaler 1 puff INHALATION Q4H PRN Patient Comments: INHALE TWO PUFFS BY MOUTH EVERY 4 HOURS NEEDED FOR COUGH, WHEEZE, OR SHORTNESS OF BREATH Discharge Instructions Instructions: Knee Pain (ED) Additional Instructions: Your CT scan shows a slightly depressed fracture of the tibia which is your hubbard bone. You will need to remain in the knee immobilizer and off of the leg with your crutches until reevaluated by orthopedics. Dr. Munoz or his team will reach out to you regarding follow-up plan as it may be in their office or at [facility] with orthopedics there. Please if you develop fever/chills, increased pain or other new/worsening symptoms to seek care urgently once again. Elevate your lower extremity. May use Tylenol and or ibuprofen as needed for discomfort. If you not hear from orthopedics by tomorrow, please call number listed below. Stand Alone Forms: Work Release Referrals: Damion Munoz MD [ [facility] STAFF PHYSICIAN] - Discharge Data Discharge Date/Time-TO BE ENTERED AT DEPARTURE: 09/06/23 12:59 Medical Decision Making Patient is a pleasant 68-year-old female presenting today with chief complaint of left knee pain which began last night after a fall. Past medical history significant for hyperlipidemia, gastritis, GERD, reactive airway, migraines, lumbago, restless leg, M?ni?re's. She states that last night around 10 PM she was calling in her dog who is black and was not able to see her while in the dark. States that the dog struck the right knee causing her to fall towards the left. She states that she subsequently fell off of her deck which is about 7 inches off of the ground and landed onto the left knee. Denies striking her head or loss of consciousness. Denies any other residual pain. States that she did need assistance upright but has been ambulatory since then with the assistance of a hockey-stick which she is using as a cane. Patient's been using ibuprofen. States that the pain did keep her awake last night. No previous surgery or injury on the left knee. On exam, patient appears nontoxic. Resting comfortably. She does appear uncomfortable with movement of the left knee. She is able to put this in full extension. Flexion is quite limited, she does have a small effusion. No erythema or warmth. She does have a dime sized area of redness consistent with where she struck along the lateral aspect of the knee. She is point tender over the fibular head and neck. She has not tender over the calcaneus. Otherwise, her pain is fairly generally discomfort. My exam is quite limited secondary to the patient's discomfort and anxiety around movement of the leg. However, she is able to straight leg raise. She has 2+ distal pulses. Intact sensation. No pain over the ankle or in the hip. Will give Tylenol and augment with the ibuprofen and obtain x-rays of the knee. XR reviewed by radiologist: BONES: There is a nondisplaced fracture of the lateral tibial plateau. There appears to be mild depression. There is no significant visible separation at the articular surface. No bony destructive lesion is seen. JOINTS: The joint spaces are maintained. No significant degenerative changes. The knee is normally aligned. A large hemarthrosis is seen SOFT TISSUE: Normal. IMPRESSION: Nondisplaced lateral tibial plateau fracture. Will move forward with CT to evaluate this further. Reviewed by radiologist: FINDINGS: Bones: There is an acute comminuted lateral tibial plateau fracture. 1-2 mm of depression is seen. There is a large hemarthrosis present. Bony alignment is satisfactory. No cellulitic or osteomyelitic changes are identified. There is no evidence of joint space narrowing or cystic degeneration seen. No lytic or sclerotic lesions are identified. Soft Tissues: Normal. IMPRESSION: 1. Acute lateral tibial plateau fracture with 1-2 mm of depression present. 2. Large hemarthrosis. Consulted with Dr. Munoz who reviewed the imaging. Unclear at this time if she will require surgery, he is here to consult with [facility] and will contact the patient regarding follow-up. Advised a knee immobilizer and nonweightbearing status. I did discuss nonweightbearing options with the patient she does not want a walker, would prefer crutches. Will give contact information for Dr. Munoz's office in the event that she does not hear from him. Discussed with patient. Fitted with knee immobilizer. She declines narcotics, doing well with APAP/NSAID and immobilization. Will remain NWB. Return precautions discussed. All of her questions and concerns were addressed, she is in agreement with this plan. HPI General Date/Time Provider Initiated Documentation: 09/06/23 08:20. Limitations to Documentation: no limitations. Information obtained by: patient and RN notes reviewed. History of Present Illness 68 year old F presents to the emergency department with the chief complaint of left knee pain, described as severe, with intensity rated at 10. Quality is described as aching and sharp, and is localized to the left and lower extremity. Patient reports no radiation. Patient started experiencing this day(s) (last night) and it has been constant. Immobilization improves symptom(s), Movement worsens symptoms . Patient notes no other symptoms.. Patient did receive the following treatments prior to arrival, NSAID Related Data Home Medications Medication Instructions Recorded Confirmed clonazepam 0.5 mg tablet (Klonopin) 0.5 mg PO DAILY PRN 02/09/21 09/06/23 bupropion HCl 200 mg tablet,12 hr 200 mg PO DAILY 02/10/23 09/06/23 sustained-release cholecalciferol (vitamin D3) 125 125 mcg PO DAILY 02/10/23 09/06/23 mcg (5,000 unit) capsule escitalopram oxalate 20 mg tablet 30 mg PO DAILY 02/10/23 09/06/23 fluticasone propionate 50 1 spray intranasal Q12H 02/10/23 09/06/23 mcg/actuation nasal spray,suspension loratadine 10 mg tablet (Allergy 10 mg PO DAILY 02/10/23 09/06/23 Relief (loratadine)) magnesium oxide 400 mg PO DAILY 02/10/23 09/06/23 meclizine 25 mg tablet 25 mg PO TID PRN 02/10/23 09/06/23 memantine 5 mg tablet 5 mg PO BID 02/10/23 09/06/23 pantoprazole 40 mg tablet,delayed 40 mg PO DAILY 02/10/23 09/06/23 release polyethylene glycol 3350 17 17 g PO DAILY PRN 02/10/23 09/06/23 gram/dose oral powder (Miralax) albuterol sulfate 90 mcg/actuation 1 puff inhalation Q4H PRN 09/06/23 09/06/23 aerosol inhaler Allergies Allergy/AdvReac Type Severity Reaction Status Date / Time promethazine [From Phenergan] AdvReac Psychosis Unverified 09/06/23 08:04 General Stated Complaint: Orthopedic KERVIN: 4 Review of Systems Constitutional Constitutional: Reports as per HPI, Denies chills, Denies fever(s), Denies headache(s) and Denies weakness ENT Ears, Nose, Mouth, and Throat: Denies headache(s) Cardiovascular Cardiovascular: Reports as per HPI Respiratory Respiratory: Reports as per HPI and Denies cough Musculoskeletal Musculoskeletal: Reports as per HPI and Denies tingling Integumentary/Breasts Skin/Breast: Reports as per HPI, Denies rash and Denies wounds Neurologic Neurologic: Reports as per HPI, Denies headache(s), Denies tingling, Denies paresthesias and Denies weakness [facility] All Active Problems (Updated 09/06/23 @ 15:30 by Damion Munoz MD) Closed fracture of left tibial plateau (Acute) Closed tibial fracture (Acute) Acute knee pain (Acute) Mild cognitive impairment (Acute) Contusion of hand, left (Acute) Medical History Allergic rhinitis Atopic neurodermatitis Bursitis disorder Degenerative disc disease Dysuria GERD (gastroesophageal reflux disease) Hearing loss Hypercholesterolemia Hyperlipidemia Lumbago without sciatica Memory loss Meniere disease Menopause Migraine Mood disorder Overactive bladder Plantar fasciitis, bilateral Reactive airway disease Reflux gastritis Restless leg syndrome Trochanteric bursitis, left hip Surgical History History of tonsillectomy Hx of shoulder surgery S/P adenoidectomy S/P arthroscopic knee surgery S/P bilateral foot surgery S/P carpal tunnel release Social History Smoking/Tobacco Use Status: Never Smoking risk assessment performed?: Yes Alcohol Intake: current Alcohol Intake frequency: 0-2 drinks per day Alcohol type: beer Drug use: Never Substance use type: does not use Housing: house Do you feel safe at home: Yes Do you feel safe in your relationship?: Yes Additional Social history: lives with family LUZ MARIA HUNG 09/06/23 Exam Const General: cooperative, healthy appearing, uncomfortable, no acute distress, well developed and well groomed Nutritional Appearance: average body habitus and well nourished Orientation: alert and awake [facility] Head: normal to inspection, no palpable skull fracture, normocephalic and atraumatic Resp Effort & Inspection: normal respiratory effort, able to speak in complete sentences and no respiratory distress Cardio Rate: regular rate Rhythm: regular rhythm Skin General skin exam: ecchymosis (circular area of ecchymosis lateral left knee, dime sized) Rashes: no rashes Neuro General: patient alert and patient awake Cognition: normal cognition Speech: speech normal Motor: muscle tone normal throughout Sensory Exam: no sensory deficits noted Extrem Knee images: 1. Area of maximal tenderness. Moderate effusion. No erytehma, warmth. Full extention, flexion to 45. 2+ distal pulses. Full ROM of ankle/foot. Able to dorsiflex/plantarflex against restistance. No calf pain. Pain over the proximal fibula. No pain in hip. Small ecchymotic area lateral knee. No laxity with anterior/posterior drawer. No laxity with varus or valgus stress testing. Point tender lateral joint line, pain posteriorly as well. Course Vital Signs Vital signs: Vital Signs Pulse 84 09/06/23 07:58 Respiratory Rate 16 09/06/23 07:58 Blood Pressure 135/76 09/06/23 07:58 Pulse Oximetry 94 09/06/23 07:58 Pulse 84 09/06/23 07:58 Respiratory Rate 16 09/06/23 07:58 Respiratory Effort Normal 09/06/23 08:07 Blood Pressure 135/76 09/06/23 07:58 Pulse Oximetry 94 09/06/23 07:58 Oxygen Delivery Method Room Air 09/06/23 07:58 Oxygen Flow Rate 0 09/06/23 07:58 Pain Level 7 09/06/23 08:09 PAWSS Have you Been Recently Intoxicated or Drunk Within the Last 30 days?: No Have you Ever Experienced Previous Episodes of Alcohol Withdrawal?: No Have you ever Experienced Withdrawal Seizures?: No Have you ever Experienced Delirium Tremens(DT)s?: No Have you ever undergone Alcohol Rehabilitation Treatment (i.e, inpt ot outpatient treatment programs)?: No Have you ever Experienced Blackouts?: No Have you ever Combined Alcohol with other Downers within the last 90 days?: No Have you ever Combined Alcohol with any other Substance of Abuse during the last 90 days?: No Result: 0
--- NOTE | 2023-09-06 09:00 | DI.RAD_ITS ---
Exam(s) XR HEEL LT OS CALCIS EXAM: XR HEEL LT OS CALCIS CLINICAL HISTORY: fall. TECHNIQUE: 2D digital imaging was performed. Two images were obtained. COMPARISON: No exams were available for comparison FINDINGS: BONES: No acute fracture is present. No bony destructive lesion is seen. JOINTS: No dislocation present. SOFT TISSUE: Normal. IMPRESSION: No acute fracture or dislocation. DATA REPOSITORY: RADIATION DOSE DELIVERED:
--- NOTE | 2023-09-06 09:18 | DI.RAD_ITS ---
Exam(s) XR KNEE LT 4V AP,LAT,REMEDIOS,PAT EXAM: XR KNEE LT 4V AP,LAT,REMEDIOS,PAT CLINICAL HISTORY: fall on knee. TECHNIQUE: 2D digital imaging was performed. Four views. COMPARISON: No exams were available for comparison FINDINGS: BONES: There is a nondisplaced fracture of the lateral tibial plateau. There appears to be mild dep ression. There is no significant visible separation at the articular surface. No bony destructive l esion is seen. JOINTS: The joint spaces are maintained. No significant degenerative changes. The knee is normally aligned. A large hemarthrosis is seen SOFT TISSUE: Normal. IMPRESSION: Nondisplaced lateral tibial plateau fracture. DATA REPOSITORY: RADIATION DOSE DELIVERED:
[2023-09-06] MEDS: Acetaminophen 500 MG TAB 1000 MG PO (09:54)
--- NOTE | 2023-09-06 10:30 | DI.CT_ITS ---
Exam(s) CT LOWER EXTREMITY LT WO EXAM: CT LOWER EXTREMITY LT WO CLINICAL HISTORY: concern for left tibia fx. TECHNIQUE: Imaging Protocol: Axial computed tomography images with coronal and sagittal reformatted images were created and reviewed. COMPARISON: CR XR KNEE LT 4V AP,LAT,REMEDIOS,PAT from 09/06/2023 FINDINGS: Bones: There is an acute comminuted lateral tibial plateau fracture. 1-2 mm of depression is seen. There is a large hemarthrosis present. Bony alignment is satisfactory. No cellulitic or osteomyeli tic changes are identified. There is no evidence of joint space narrowing or cystic degeneration see n. No lytic or sclerotic lesions are identified. Soft Tissues: Normal. IMPRESSION: 1. Acute lateral tibial plateau fracture with 1-2 mm of depression present. 2. Large hemarthrosis. RADIATION DOSE DELIVERED: Total DLP Total DLP DATA REPOSITORY: All CT scans at this facility are submitted to the National Radiology Data Registry (NRDR) Dose Index Registry (DIR) with the [employer] (A[employer]). RADIATION OPTIMIZATION: All CT scans at this facility use at least one of these dose optimization te chniques: automated exposure control; mA and/or kV adjustment per patient size (includes targeted exa ms where dose is matched to clinical indication); or iterative reconstruction.
== END 2023-09-06 12:59 | disposition home or self-care (01) ==
PROVIDERS: Emergency Provider Physician Assistant; PCP Nurse Practitioner
DX: S82.142A Displaced bicondylar fracture of left tibia, initial encounter for closed fracture (principal); M25.062 Hemarthrosis, left knee; E78.5 Hyperlipidemia, unspecified; E78.00 Pure hypercholesterolemia, unspecified; W17.89XA Other fall from one level to another, initial encounter; Y93.K9 Activity, other involving animal care; Y92.017 Garden or yard in single-family (private) house as the place of occurrence of the external cause
CPT/HCPCS: 99283; 73564; 73650; 73700

== ENCOUNTER 2023-09-09 10:59 | Day surgery (SDC) | payer MEDICARE, SELFPAY ==
[2023-09-09] VITALS (9 sets, daily range): BP systolic 103–136; BP diastolic 59–83; PULSE 60–77; RESP 12–19; TEMP 36–36.8; O2SAT 93–98; BMI 35.9
--- NOTE | 2023-09-09 11:49 | DI.RAD_ITS ---
Exam(s) XR KNEE LT 2V AP,LAT EXAM: XR KNEE LT 2V AP,LAT CLINICAL HISTORY: tibial plateau fracture. TECHNIQUE: 2D and realtime digital imaging was performed. COMPARISON: No exams were available for comparison FINDINGS: Hard copy images show placement of hardware in the proximal tibia for fracture fixation. Please see procedure note for details. Fluoro time: 55.1seconds RADIATION DOSE DELIVERED: Ka,r=4.02 mGy
--- NOTE | 2023-09-09 11:59 | W.ANESPRE ---
General Info Date of Service Date Performed: 09/09/23 Height: 4 ft 11 in Weight: 80.8 kg Body Mass Index (BMI): 35.9 Surgical Procedure: Operation Date: 09/09/23 12:10 Proposed Procedure Side Surgeon p Tibial Plateau Fracture ORIF Left Damion Munoz MD Meds Allergies and Home Medications Allergies Allergy/AdvReac Type Severity Reaction Status Date / Time promethazine [From Phenergan] AdvReac Psychosis Unverified 09/09/23 11:43 Home Medication Medication Instructions Recorded clonazepam 0.5 mg tablet (Klonopin) 0.5 mg PO DAILY PRN 02/09/21 bupropion HCl 200 mg tablet,12 hr 200 mg PO DAILY 02/10/23 sustained-release cholecalciferol (vitamin D3) 125 125 mcg PO DAILY 02/10/23 mcg (5,000 unit) capsule escitalopram oxalate 20 mg tablet 30 mg PO DAILY 02/10/23 fluticasone propionate 50 1 spray intranasal Q12H 02/10/23 mcg/actuation nasal spray,suspension loratadine 10 mg tablet (Allergy 10 mg PO DAILY 02/10/23 Relief (loratadine)) magnesium oxide 400 mg PO DAILY 02/10/23 meclizine 25 mg tablet 25 mg PO TID PRN 02/10/23 memantine 5 mg tablet 5 mg PO BID 02/10/23 pantoprazole 40 mg tablet,delayed 40 mg PO DAILY 02/10/23 release polyethylene glycol 3350 17 17 g PO DAILY PRN 02/10/23 gram/dose oral powder (Miralax) albuterol sulfate 90 mcg/actuation 1 puff inhalation Q4H PRN 09/06/23 aerosol inhaler Current Visit Medications: Current Medications Generic Name Dose Route Start Last Admin Trade Name Freq PRN Reason Stop Dose Admin Acetaminophen 1,000 mg 09/09/23 06:00 Acetaminophen 500 Mg Tab PO 10/09/23 05:59 PREOP GAVINO Celecoxib 400 mg 09/09/23 06:00 Celecoxib 200 Mg Cap PO 10/09/23 05:59 PREOP GAVINO Gabapentin 300 mg 09/09/23 06:00 Gabapentin 300 Mg Cap PO 10/09/23 05:59 PREOP GAVINO Ringer's Solution 1,000 mls @ 80 mls/hr 09/09/23 06:00 IV 10/08/23 23:59 INFUSION GAVINO Tranexamic Acid 1,000 mg/ 60 mls @ 360 mls/hr 09/09/23 06:00 Sodium Chloride IVPB 09/09/23 16:00 PREOP GAVINO Cefazolin Sodium/Dextrose 2 gm in 50 mls @ 100 mls/hr 09/09/23 06:00 Ancef Duplex IVPB 10/09/23 23:59 PREOP GAVINO IV Miscellaneous Supplies 1 each 09/09/23 06:00 Iv Access IV 10/08/23 23:59 DIRECTED GAVINO Sodium Chloride 0 ml 09/09/23 06:00 Normal Saline Flush 10 Ml Syr IV 10/08/23 23:59 PRN PRN Sodium Chloride 0 ml 09/09/23 06:00 Normal Saline 10 Ml Vial IJ 10/08/23 23:59 DIRECTED PRN Sterile Water 0 ml 09/09/23 06:00 Water,Injection,Sterile 10 Ml Vial IJ 10/08/23 23:59 DIRECTED PRN PFSH Active Problems Active Problems: Problem Status Onset Code Closed fracture of left tibial plateau S82.142A Closed tibial fracture S82.209A Acute knee pain M25.569 Mild cognitive impairment G31.84 Contusion of hand, left S60.222A Medical History Medical History Allergic rhinitis Atopic neurodermatitis Bursitis disorder Degenerative disc disease Dysuria GERD (gastroesophageal reflux disease) Hearing loss Hypercholesterolemia Hyperlipidemia Lumbago without sciatica Memory loss Meniere disease Menopause Migraine Mood disorder Overactive bladder Plantar fasciitis, bilateral Reactive airway disease Reflux gastritis Restless leg syndrome Trochanteric bursitis, left hip Surgical History Surgical History History of tonsillectomy Hx of shoulder surgery S/P adenoidectomy S/P arthroscopic knee surgery S/P bilateral foot surgery S/P carpal tunnel release Tobacco Smoking/Tobacco Use Status: Never Alcohol Alcohol Intake: current Alcohol intake frequency: a few times a week Alcohol type: beer Substance Use Substance use: Never Substance use type: does not use Vital Signs and Lab Results Vital Signs Most Recent Vital Signs in EMR: Most Recent Vital Signs Temp Pulse Resp BP Pulse Ox 36.8 C 77 16 135/69 96 09/09/23 11:30 09/09/23 11:30 09/09/23 11:30 09/09/23 11:30 09/09/23 11:30 Lab Results Blood Type / Crossmatch: No Data to Display Complete Blood Count: No Data to Display Complete Metabolic Panel: No Data to Display Liver Function Panel: No Data to Display Coagulation Panel: No Data to Display Cardiac Panel: No Data to Display Arterial Blood Gas: No Data to Display Venous Blood Gas: No Data to Display Pancreas Panel: No Data to Display Thyroid Panel: No Data to Display Infectious Disease: No Data to Display Blood Cultures: No Data to Display Toxicology Panel: No Data to Display Imaging and Studies Imaging and Studies Study information below may be from another EMR and interpreted by another provider. Please see original notes in EMR for more complete details. EKG Summary: 02/14/22: Exam: Resting ECG Reason for Exam: sob Patient Location: E HR:95 bpm ECG Measurements Heart Rate 95 AXIS HI 138 P 60 QRSd 84 QRS -5 QT 359 T84 QTc 452 Conclusion Sinus rhythm...normal P axis, V-rate 60- 99 Physician: no stemi, stable I have reviewed and I agree with the emergency room physician's ECG interpretation. Electronically signed by: <Electronically signed by Miracle Sales M.D. in [place]> 02/15/22 0807 Cosigned by: Anesthesia Assessment and Plan Anesthesia History Personal History: PONV Family History: No Family History of Anesthesia Complications Exercise Tolerance Exercise Tolerance: Metabolic Equivalents>4 Pertinent Negatives Pertinent Negatives: No Major Cardiovascular Symptoms or Complaints and No Major Pulmonary Symptoms or Complaints Cardiac & Pulmonary Exam Cardiac Exam: Normal S1/S2 Heart Sounds Pulmonary Exam: Clear Bilateral Breath Sounds Implantable Cardiac Device Does patient have a Pacemaker or an ICD?: No Airway Exam Known Difficult Airway: No Mallampati Class: 1 Mouth Opening: Normal (> 3cm) Thyromental Distance: Greater than 3 cm Neck Range of Motion: Full ROM Neck Circumference: Normal Teeth Condition: Normal Dentition ASA Classification ASA Score: ASA 2 Emergency Case?: No NPO Status NPO Status: NPO Clears >2 hours, Solids >8 hours Anesthesia Plan Resuscitation Status: Full Code Anesthesia Technique: Spinal Anesthesia Airway Planned: Natural Airway Monitors Used: Standard Monitors
[2023-09-09] MEDS: Gabapentin 300 MG CAP PO (12:07)
[2023-09-09] MEDS: Acetaminophen 500 MG TAB 1000 MG PO (12:08)
[2023-09-09] MEDS: Celecoxib 200 MG CAP 400 MG PO (12:08)
[2023-09-09] MEDS: Lactated Ringers 1,000 ML 80 ML IV (12:24)
--- NOTE | 2023-09-09 12:25 | HPE_ITS ---
Assessment and Plan Assessment and plan (1) Closed fracture of left tibial plateau: Status: Acute Assessment and plan: Lindy is an active 68-year-old female who has a tibial plateau fracture on the left side. She has no preinjury pain about the left knee. She has no significant findings of arthritis. However, she does have depression of about 5 mm of the articular segment within the central portion of the lateral tibial plateau. She also has some collapse into valgus with testing of the knee. I was very honest with Lindy that this could be treated nonoperatively. However, given the acute step-off within the weightbearing portion of the lateral side of the knee and a valgus orientation of the knee, it is likely to develop arthritis and be painful in the future. While surgery would not guarantee this will not happen, it would be much less likely with appropriate position of the articular segments and gnosticism of the neutral mechanical axis. I reviewed this with her. I recommended the surgical fixation. I discussed options. I reviewed risks to include bleeding, infection, pain, stiffness, damage to nerves and vessels, damage to muscles and tendons, nonunion, malunion, hardware prominence, hardware failure, blood clot, need for repeat procedures. Despite these risk, she elects to proceed. History of Present Illness History of Present Illness Chief Complaint: Left knee pain Narrative: Lindy is a 68-year-old active female who unfortunately had a misstep off of the edge of her decking. She fell awkwardly onto the left leg with immediate pain. She tried to walk on it through the night. Unfortunately, she was unable to do so and present to the emergency department. She was diagnosed with a depressed lateral tibial plateau fracture. I was called in consultation. I reviewed the case with her over the phone and recommended operative fixation to reduce the articular fragments which are depressed. Review of Systems All systems reviewed & are unremarkable except as noted in HPI and below PFSH All Active Problems Closed fracture of left tibial plateau (Acute) Closed tibial fracture (Acute) Acute knee pain (Acute) Mild cognitive impairment (Acute) Contusion of hand, left (Acute) Medical History Reflux gastritis Memory loss Hyperlipidemia Bursitis disorder Reactive airway disease GERD (gastroesophageal reflux disease) Atopic neurodermatitis Hearing loss Migraine Allergic rhinitis Menopause Mood disorder Overactive bladder Lumbago without sciatica Dysuria Degenerative disc disease Hypercholesterolemia Trochanteric bursitis, left hip Plantar fasciitis, bilateral Restless leg syndrome Meniere disease Surgical History S/P carpal tunnel release S/P arthroscopic knee surgery S/P bilateral foot surgery Hx of shoulder surgery S/P adenoidectomy History of tonsillectomy Social History Smoking/Tobacco Use Status: Never Smoking risk assessment performed?: Yes Alcohol Intake: current Alcohol Intake frequency: a few times a week Alcohol type: beer Drug use: Never Substance use type: does not use Housing: house Do you feel safe at home: Yes Do you feel safe in your relationship?: Yes Meds Allergies and Home Medications Allergies Allergy/AdvReac Type Severity Reaction Status Date / Time promethazine [From Phenergan] AdvReac Psychosis Unverified 09/09/23 11:43 Home Medications Medication Instructions Recorded Confirmed Type clonazepam 0.5 mg tablet (Klonopin) 0.5 mg PO DAILY PRN 02/09/21 09/09/23 History bupropion HCl 200 mg tablet,12 hr 200 mg PO DAILY 02/10/23 09/09/23 History sustained-release cholecalciferol (vitamin D3) 125 125 mcg PO DAILY 02/10/23 09/09/23 History mcg (5,000 unit) capsule escitalopram oxalate 20 mg tablet 30 mg PO DAILY 02/10/23 09/09/23 History fluticasone propionate 50 1 spray intranasal Q12H 02/10/23 09/09/23 History mcg/actuation nasal spray,suspension loratadine 10 mg tablet (Allergy 10 mg PO DAILY 02/10/23 09/09/23 History Relief (loratadine)) magnesium oxide 400 mg PO DAILY 02/10/23 09/09/23 History meclizine 25 mg tablet 25 mg PO TID PRN 02/10/23 09/09/23 History memantine 5 mg tablet 5 mg PO BID 02/10/23 09/09/23 History pantoprazole 40 mg tablet,delayed 40 mg PO DAILY 02/10/23 09/09/23 History release polyethylene glycol 3350 17 17 g PO DAILY PRN 02/10/23 09/09/23 History gram/dose oral powder (Miralax) albuterol sulfate 90 mcg/actuation 1 puff inhalation Q4H PRN 09/06/23 09/09/23 History aerosol inhaler Exam Const General: cooperative, healthy appearing, comfortable and no acute distress Resp Effort & Inspection: normal respiratory effort Auscultation: clear to auscultation bilaterally Cardio Rate: regular rate Rhythm: regular rhythm Extrem Other: Evaluation of the left leg shows some areas of ecchymosis. Minimal swelling. Mild effusion. There is pain to palpation over the proximal?lateral tibia. There is a slight valgus orientation of the knee with some collapse into valgus with valgus stress. Intact ankle dorsiflexion plantarflexion, sensation intact to light touch over the deep surface of peroneal nerve and tibial nerve. Cap refill less than 2 seconds. No defects in the skin. Results Imaging Imaging Studies: X-ray of the left knee shows a lateral tibial plateau fracture with some depression of the articular segments. CT scan of the left knee which was performed in the emergency department shows a lateral tibial plateau fracture with 1 primary segment of articular depression with an acute step off of 5mm. There are 2-3 smaller fragments in this region too. There may be a small split exiting the anterior lateral aspect of the tibia with no distal extension. No medial extension. No fibular fracture. Large hemarthrosis. Last Vital Signs Temp 36.8 C 09/09/23 11:30 Pulse 77 09/09/23 11:30 Resp 16 09/09/23 11:30 BP 135/69 09/09/23 11:30 Pulse Ox 96 09/09/23 11:30
[2023-09-09] MEDS: ceFAZolin 2 GM/50 ML BAG IVPB (12:39)
--- NOTE | 2023-09-09 12:39 | PDOC.DSDIS_ITS ---
Date of service: 09/09/23 Time of Service: 12:39 Discharge Plan Disposition Patient Disposition: Home Condition: Good Discharge Details Reason For Visit: Left Tibial Plateau Fracture Attending Provider: Damion Munoz Primary Care Provider: Evelyne Maloney Home Meds and New Rx's Prescriptions: New aspirin 81 mg tablet,delayed release (DR/EC) 81 mg PO BID Qty: 30 0RF acetaminophen 500 mg tablet 1,000 mg PO Q8H PRN (Reason: pain) Qty: 90 3RF celecoxib 200 mg capsule 200 mg PO BID PRN (Reason: pain) Qty: 60 1RF oxycodone 5 mg tablet 5 mg PO Q4H PRNQty: 10 0RF Continued bupropion HCl 200 mg tablet sustained-release 12 hr 200 mg PO DAILY escitalopram oxalate 20 mg tablet 30 mg PO DAILY fluticasone propionate 50 mcg/actuation spray,suspension 1 spray intranasal Q12H Rx Instructions: administer into each nostril magnesium oxide 400 mg magnesium capsule 400 mg PO DAILY meclizine 25 mg tablet 25 mg PO TID PRN polyethylene glycol 3350 [Miralax] 17 gram/dose powder 17 g PO DAILY PRN pantoprazole 40 mg tablet,delayed release (DR/EC) 40 mg PO DAILY cholecalciferol (vitamin D3) 125 mcg (5,000 unit) capsule 125 mcg PO DAILY loratadine [Allergy Relief (loratadine)] 10 mg tablet 10 mg PO DAILY memantine 5 mg tablet 5 mg PO BID clonazepam [Klonopin] 0.5 mg Tablet 0.5 mg PO DAILY PRN albuterol sulfate 90 mcg/actuation HFA aerosol inhaler 1 puff INHALATION Q4H PRN Patient Comments: INHALE TWO PUFFS BY MOUTH EVERY 4 HOURS NEEDED FOR COUGH, WHEEZE, OR SHORTNESS OF BREATH Discharge Instructions Additional Instructions: Tibial Plateau Discharge Instructions Activity: You may toe-touch weight bearing as tolerated on the leg as long as the brace is on. Use the walker for support. You should wear the brace with the straps on tight for any mobilization or when sleeping. You will use the walker for all mobilization. You may move your ankle and toes as needed. Dressing: You should keep the knee dressing in place for 3 days. After this time, you may remove the wrap to the knee and leave the Mepilex dressing in place until your follow-up appointment. If it becomes soiled or it unravels, you should call and notify the office. You may rewrap or overwrap until the follow-up. You should cover the dressing for shower and hygiene. Medications: - You should take Tylenol and Celebrex around the clock for the first days- weeks. This will cover baseline pain control. - You have been prescribed a stronger medication, Oxycodone, if needed. If this is necessary, and you need a refill, please call the office at [phone]. Follow-up: 10 days Stand Alone Forms: Anesthesia Discharge Inst., Anes.Nerve Block Instructions, Saurabh Mcclure (DSU) Referrals: Damion Munoz MD [ [facility] STAFF PHYSICIAN] - 09/21/23 10:30 am Equipment/Supplies: Non-Weight Bearing Crutches and Walker Activity:: Elevate Remove Dressings/Wound Care:: 72 hours Shower/Bathe:: 72 hours and Cover Discharge Orders Discharge Orders: Discharge Order (Routine); Ordered 09/09/23 Ordered By: Damion Munoz DS: Diagnosis Discharge Diagnosis (1) Closed fracture of left tibial plateau: Status: Acute
--- NOTE | 2023-09-09 14:24 | ROE_ITS ---
Date of service: 09/09/23 Time of Service: 13:00 Operative Note Operative Note DATE OF PROCEDURE: 09/09/23 PRE-OP DIAGNOSIS: Left tibial plateau fracture POST-OP DIAGNOSIS: same PROCEDURE: Open Reduction and Internal Fixation of Left Tibial Plateau Fracture SURGEON: Damion Munoz KITCHEN UTILITY ASSOCIATE: Harjeet Orellana ANESTHESIA TYPE: Spinal Refer to Anesthesia Record ESTIMATED BLOOD LOSS: 50 PATHOLOGY: none sent COMPLICATIONS: None Patient was transported to: PACU Patient's condition: stable Implants: Synthes 3.5mm VA Tibial Plateau Plate Indications: Lindy is a 68 year old female who presented to the Emergency Department after a fall. X-rays confirmed the diagnosis of a displaced lateral tibial plateau fracture of the left leg. I reviewed the possible treatment options and given the fracture with articular stepoff, I recommended operative fixation. I discussed the technical details of the surgery. I reviewed the risks such as bleeding, infection, pain, stiffness, malunion, nonunion, hardware prominence, hardware faiilure, malrotation, damage to nerves and vessels, blood clot. Despite these risks, Lindy agreed to proceed. Findings: There was a displaced fracture of the lateral tibial plateau. There is a small split in the anterior tibia which was extended with an osteotome allowing direct reduction of the displaced fragment. This was held in place with a K wire. There is very minimal bone loss with otherwise healthy bone throughout. This was secured by plate and screws. Procedure Description: Lindy was greeted in the preoperative area. Consent was reviewed and signed. History and physical was performed. Once in the operating room, spinal anesthesia was administered. Lindy was transferred over to the operating room table in the supine position. She was positioned in the supine position with the operative side placed onto a bone foam ramp. All bony prominences were well padded. Arms were placed out to the side, padded, and secured. A single dose of TXA, 1 gram, was then administered IV. Prophylactic antibiotics, Cefazolin 2 grams, was given for prophylactic antibiotics. A timeout was performed for safe surgery. The left leg was prepped with Chloraprep. The leg was draped with a stockinette and U drapes along with an extremity drape. The proposed incision was marked on the skin lateral to the tibial crest, curving over Nanci's tubercle and then turning proximally over the IT band and the posterior aspect of the femoral condyle. This was incised sharply through the skin and soft tissue all the way to the anterior fascia of the leg and the IT band. With this exposed I then incised the anterior compartment fascia, approxi-1 cm off the tibial crest, extending over Nanci's tubercle, and extending into the IT band. This was subperiosteally lifted off the underlying bone for exposure although to the anterior tibial plateau and all the way to the posterior corner of the tibial plateau abutting the fibular head. The IT band was dissected away from the underlying capsule and synovial layer. A lozano elevator was utilized to release some the muscle fibers from the overlying anterior fascia and off of the lateral tibia. We had excellent exposure at this point. From within the wound I then placed a single pin through the distal aspect of the femur just proximal to the lateral epicondyle. This pin was drilled and then placed under power. A second pin from the femoral distractor system was placed in the tibia distal to her incision site. This was done with assistance of fluoroscopy. Once these were placed the distractor was assembled and distraction was placed across the joint. This placed in tension to the capsule of the joint where there is already a small defect seen in the capsule tissue just distal to the lateral meniscus. A submeniscal arthrotomy was then performed. #1 Vicryl sutures were placed and the lateral border of the meniscal capsular junction. There is no noted meniscal tear. It was now obvious that there was a depression fracture within the tibial plateau and the anterior lateral aspect of the tibia. There is a small split which seem to be incomplete extending adjacent to this area over the anterior corner of the lateral tibia. I was able to easily place a [place] within the split and it was minimally mobile. I then utilized an osteotome within the split to open dissection of the bone for visualization of the deeper tissues. With this performed, had excellent visualization of the depressed fragment. I was able to use a bone tamp and a small straight osteotome to elevate the articular surface along with his accompanying subchondral bone. There is excellent bone in this region. Surprisingly, there is very minimal void in the bone was minimally compressed adjacent to the articular fragment. With this elevated, I placed a K wire across the joint to hold this in place. X-ray was utilized to confirm appropriate positioning of the K wire as well as appropriate elevation of the depressed fragment of the lateral tibial plateau. There is some mild anterior sloping towards the medial aspect of the tibial plateau which was not identified on the CT scan and did not seem to be mobile. The articular surface appear to be congruent. A lateral x-ray was also utilized to confirm there is no depressed fragments on the lateral view with appropriate posterior slope. With this now reduced I placed a 3.5 mm proximal tibial plate onto the proximal tibia. This fit the bone quite well over the lateral aspect of the tibia. This was clamped into position and x-ray confirmed appropriate positioning. I then placed a single nonlocking screw in the oblong hole to bring the plate down against bone acting as a primary buttress. With the plate held firmly against the bone proximally I then placed a single locking screw across the tibial plateau. X-rays once again confirmed appropriate trajectory of the screws along with size. They continue to place 3 additional locking screws in the proximal row of the plate supporting the tibial plateau. 2 additional screws were placed distally. All the screws were confirmed to be in appropriate position with the x-ray. Distraction was then released and final AP and lateral x-rays were performed. This showed improvement of the displaced fragment with holiness of the lateral tibial joint surface in both AP and lateral. Given that there is minimal void and the bone was quite healthy underlying this fragment did not place any additional bone substitute as the defect was no more than 3 to 4 mm in diameter. The sutures previously placed the meniscus were then tied through the plate and into the remnant capsular tissue at the rim of the lateral tibia. The wound was thoroughly irrigated. The skin, soft tissues, and deep structures including periosteum and fascia were injected with a mixture of ropivacaine, epinephrine, clonidine, and ketorolac. The pins from the femoral distractor were removed. The wounds were thoroughly irrigated. The anterior leg fascia extending onto the IT band was then closed with a #1 Vicryl. The deep tissue was closed with a 0 and 2-0 Vicryl followed by running 3-0 Monocryl. The smaller wounds for the tibial pin placement were closed with a subcuticular Monocryl. Mepilex dressing was placed over the wounds. An ABD pad along with Remi wrap was placed over the wound for some slight compression. A knee immobilizer was placed. At the end of the case, all counts were correct. Lindy tolerated the procedure well without known complication and was taken to the PACU for recovery. Physical therapy will start post-operatively, touchdown weightbearing for the first 2 weeks with assistive devices. Aspirin 81 mg twice daily for DVT prevention.
[2023-09-09] MEDS: fentaNYL 100 MCG/2 ML VIAL IVP (15:33)
--- NOTE | 2023-09-09 15:46 | W.ANESPOSTOP ---
Postoperative Evaluation Date, Time and Location Date Performed: 09/09/23 Time Performed: 15:46 Patient Location: PACU Vital Signs Most Recent Imported Vital Signs: Most Recent Vital Signs Temp Pulse Resp BP Pulse Ox 36.4 C L 67 16 132/70 98 09/09/23 15:20 09/09/23 15:20 09/09/23 15:20 09/09/23 15:20 09/09/23 15:20 Pain Score Most Recent Pain Score: Most Recent Pain Score Pain Level 0 09/09/23 11:30 Assessment Mental Status: Awake (Alert & Oriented to Patient Baseline) Airway and Respiratory Function: Patent airway with normal (patient baseline) respiratory exam Cardiovascular Function: Hemodynamically Stable Hydration Status: Adequately Hydrated Nausea & Vomiting: No Nausea or Vomiting Pain: Pain is tolerable per patient (3/10) Peripheral Nerve Block: Patient did not receive a nerve block
== END 2023-09-09 11:00 | disposition home or self-care (01) ==
PROVIDERS: PCP Nurse Practitioner; Visit Provider Student in an Organized Health Care Education/Training Program
DX: S82.142A Displaced bicondylar fracture of left tibia, initial encounter for closed fracture (principal); W19.XXXA Unspecified fall, initial encounter; W54.1XXA Struck by dog, initial encounter
CPT/HCPCS: 27535; 76000; 73560; J0690; J1100; J2001; J2250; J2405; J3010

== ENCOUNTER 2023-09-21 13:45 | Outpatient (CLI) | payer MEDICARE, SELFPAY ==
--- NOTE | 2023-09-21 10:30 | DI.RAD_ITS ---
Exam(s) XR KNEE LT 2V AP,LAT EXAM: XR KNEE LT 2V AP,LAT CLINICAL HISTORY: S/P ORIF L TIB. TECHNIQUE: 2D digital imaging was performed. COMPARISON: CT CT LOWER EXTREMITY LT WO from 09/06/2023 CR XR KNEE LT 4V AP,LAT,REMEDIOS,PAT from 09/06/2023 FINDINGS: Two views. There is now metallic plate on the lateral aspect of the proximal tibia secured by multiple screws. The uppermost screws are in the tibial plateau transfixing the tibial plateau fracture evident on the recent CT scan of 09/06/2023. The fracture does not appear depressed. Indeed, it is difficult to v isualize fracture lines on the plain films. No hardware loosening nor evidence of osteomyelitis. IMPRESSION: Satisfactory appearance DATA REPOSITORY: RADIATION DOSE DELIVERED:
== END 2023-09-21 13:46 | disposition home or self-care (01) ==
LOC: DIORS 13:46
PROVIDERS: PCP Nurse Practitioner; Referring Provider Nurse Practitioner; Visit Provider Physician Assistant
DX: S82.142A Displaced bicondylar fracture of left tibia, initial encounter for closed fracture (principal); S82.142D Displaced bicondylar fracture of left tibia, subsequent encounter for closed fracture with routine healing; X58.XXXD Exposure to other specified factors, subsequent encounter
CPT/HCPCS: 73560

== ENCOUNTER 2023-10-07 11:42 | Outpatient (CLI) | payer MEDICARE, SELFPAY ==
--- NOTE | 2023-10-07 11:30 | DI.RAD_ITS ---
Exam(s) XR KNEE LT 2V AP,LAT EXAM: XR KNEE LT 2V AP,LAT CLINICAL HISTORY: S/P ORIF LEFT TIBIAL PLATEAU FX. TECHNIQUE: 2D digital imaging was performed. Two images were obtained. AP and lateral views were ob tained. COMPARISON: CR XR KNEE LT 2V AP,LAT from 09/21/2023 FINDINGS: BONES: There are stable post operative changes present. No new fracture or dislocation. The tibial p lateau fracture has been best appreciated on the CT scan. JOINTS: The joint spaces are well maintained. There is a joint effusion. SOFT TISSUE: Normal. IMPRESSION: Stable postoperative changes. Small joint effusion. DATA REPOSITORY: RADIATION DOSE DELIVERED:
== END 2023-10-07 11:43 | disposition home or self-care (01) ==
LOC: DIORS 11:42
PROVIDERS: PCP Nurse Practitioner; Referring Provider Nurse Practitioner; Visit Provider Student in an Organized Health Care Education/Training Program
DX: S82.142D Displaced bicondylar fracture of left tibia, subsequent encounter for closed fracture with routine healing (principal); X58.XXXD Exposure to other specified factors, subsequent encounter
CPT/HCPCS: 73560

== ENCOUNTER 2023-10-24 15:38 | Outpatient (CLI) | payer MEDICARE, SELFPAY ==
--- NOTE | 2023-10-24 14:15 | DI.RAD_ITS ---
Exam(s) XR KNEE LT 2V AP,LAT EXAM: XR KNEE LT 2V AP,LAT CLINICAL HISTORY: f/u ORIF L Tibial Plateau. TECHNIQUE: 2D digital imaging was performed. Two images were obtained. AP and lateral views were ob tained. COMPARISON: CR XR KNEE LT 2V AP,LAT from 10/07/2023 FINDINGS: BONES: There are stable post operative changes present. No new fracture or dislocation. JOINTS: The joint spaces are well maintained. There is a small joint effusion. SOFT TISSUE: Normal. IMPRESSION: Stable postoperative changes. DATA REPOSITORY: RADIATION DOSE DELIVERED:
== END 2023-10-24 15:39 | disposition home or self-care (01) ==
LOC: DIORS 15:39
PROVIDERS: PCP Nurse Practitioner; Visit Provider Student in an Organized Health Care Education/Training Program
DX: S82.142A Displaced bicondylar fracture of left tibia, initial encounter for closed fracture (principal); S82.142D Displaced bicondylar fracture of left tibia, subsequent encounter for closed fracture with routine healing; X58.XXXD Exposure to other specified factors, subsequent encounter
CPT/HCPCS: 73560

== ENCOUNTER 2023-12-05 15:42 | Outpatient (CLI) | payer MEDICARE, SELFPAY ==
--- NOTE | 2023-12-05 15:15 | DI.RAD_ITS ---
Exam(s) XR KNEE LT 2V AP,LAT EXAM: XR KNEE LT 2V AP,LAT CLINICAL HISTORY: f/u L tibial plateau ORIF. TECHNIQUE: 2D digital imaging was performed. Two images were obtained. AP and lateral views were ob tained. COMPARISON: CR XR KNEE LT 2V AP,LAT from 10/24/2023 FINDINGS: BONES: There are stable post operative changes present. No new fracture or dislocation. The tibial p lateau fracture is not visualized on the current examination. JOINTS: The joint spaces are well maintained. There is a small joint effusion. SOFT TISSUE: Normal. IMPRESSION: No acute change. DATA REPOSITORY: RADIATION DOSE DELIVERED:
== END 2023-12-05 15:43 | disposition home or self-care (01) ==
LOC: DIORS 15:42
PROVIDERS: PCP Nurse Practitioner; Referring Provider Nurse Practitioner; Visit Provider Student in an Organized Health Care Education/Training Program
DX: S82.142D Displaced bicondylar fracture of left tibia, subsequent encounter for closed fracture with routine healing (principal); X58.XXXD Exposure to other specified factors, subsequent encounter
CPT/HCPCS: 73560

== ENCOUNTER 2024-07-18 16:54 | Outpatient (CLI) | payer MEDICARE, SELFPAY ==
--- NOTE | 2024-07-18 17:14 | DI.RAD_ITS ---
Exam(s) XR CHEST 2V PA LATERAL EXAM: XR CHEST 2V PA LATERAL CLINICAL HISTORY: R05.9 Cough TECHNIQUE: 2D digital imaging was performed of the chest. Two images were obtained. PA and lateral views were obtained. COMPARISON: CR XR CHEST 2V PA LATERAL from 09/02/2022 FINDINGS: MEDIASTINUM: Normal. HEART: Normal. PULMONARY VASCULATURE: Normal. LUNGS: Clear. PLEURAL SPACE: No pleural effusion or pneumothorax. BONE:Within normal limits for the patient's age. Anterior cervical thoracic disc fusion. OTHER FINDINGS:Normal. IMPRESSION: No acute pulmonary findings. DATA REPOSITORY: RADIATION DOSE DELIVERED:
--- NOTE | 2024-07-18 17:29 | DI.VRAD_ITS ---
PROCEDURE INFORMATION: Exam: XR Chest Exam date and time: 07/18/2024 5:12 PM Age: 69 years old Clinical indication: Cough TECHNIQUE: Imaging protocol: Radiologic exam of the chest. Views: 2 views. COMPARISON: CR XR CHEST 2V PA LATERAL 05/07/2022 11:06 FINDINGS: Lungs: Low lung volumes. Coarse increased interstitial markings similar to prior study. No focal consolidation. Pleural spaces: Unremarkable. No pleural effusion. No pneumothorax. Heart/Mediastinum: Stable cardiomediastinal silhouette. Bones/joints: Postsurgical changes in the lower cervical and upper thoracic spine similar to prior study. Mild anterior wedging of several midthoracic vertebra. IMPRESSION: No acute cardiopulmonary findings. Dictated and Authenticated by: Paula Kenny MD. Ordering:BOYD Rocha MD
== END 2024-07-18 17:14 ==
LOC: DI 16:57
PROVIDERS: PCP Nurse Practitioner; Visit Provider Physician Assistant Medical
DX: R05.9 Cough, unspecified (principal)
CPT/HCPCS: 71046

== ENCOUNTER 2024-12-07 09:21 | Outpatient (CLI) | payer MEDICARE, SELFPAY ==
--- NOTE | 2024-12-07 11:09 | DI.RAD_ITS ---
Exam(s) XR FOOT RT COMPLETE EXAM: XR FOOT RT COMPLETE CLINICAL HISTORY: M79.671 Right foot pain. TECHNIQUE: 2D digital imaging was performed of the right foot. Three images were obtained. AP, obl ique and lateral views were obtained. COMPARISON: No exams were available for comparison FINDINGS: BONES: No acute fracture is present. No bony destructive lesion is seen. Note is made of a bipartite sesamoid at the head of the 1st metatarsal. JOINTS: No dislocation present. The joint spaces appear well maintained. SOFT TISSUE: Normal. IMPRESSION: No acute abnormality. DATA REPOSITORY: RADIATION DOSE DELIVERED:
== END 2024-12-07 09:41 ==
LOC: DI 09:22
PROVIDERS: PCP Nurse Practitioner; Visit Provider Nurse Practitioner
DX: M79.671 Pain in right foot (principal)
CPT/HCPCS: 73630

== ENCOUNTER 2025-01-05 18:12 | Emergency (ER) | payer MEDICARE, SELFPAY ==
--- NOTE | 2025-01-05 18:15 | DI.RAD_ITS ---
Exam(s) XR SHOULDER LT COMPLETE 2+V EXAM: XR SHOULDER LT COMPLETE 2+V CLINICAL HISTORY: L shoulder; fall/trauma. TECHNIQUE: 2D digital imaging was performed. Three views. COMPARISON: No exams were available for comparison FINDINGS: BONES: No acute fracture is present. No bony destructive lesion is seen. Hardware in lower cervical spine. JOINTS: No dislocation present. Mild spurring at the AC joint. Glenohumeral joint space is maintain ed. SOFT TISSUE: There are few calcifications adjacent to the humeral head which could indicate calcific tendinosis. IMPRESSION: Mild degenerative changes and calcific tendinosis. No acute abnormality. DATA REPOSITORY: RADIATION DOSE DELIVERED:
[2025-01-05 18:16] VITALS: BP 188/75; PULSE 97; RESP 22; TEMP 37.8; O2SAT 98
[2025-01-05] MEDS: Ketorolac 30 MG/ML VIAL IM (18:38)
[2025-01-05] MEDS: Acetaminophen 500 MG TAB 1000 MG PO (18:38)
[2025-01-05] MEDS: oxyCODONE 5 MG TAB PO (18:38)
--- NOTE | 2025-01-05 18:59 | ED.GENADUL_ITS ---
Discharge Plan Disposition Patient Disposition: Home Condition: Stable Discharge Details Clinical Impression: Sprain of left shoulder Primary Care Provider: Evelyne Maloney ED Provider: Dominguez Ralph Home Meds and New Rx's Prescriptions: Continued bupropion HCl 200 mg tablet sustained-release 12 hr 200 mg PO DAILY fluticasone propionate 50 mcg/actuation spray,suspension 1 spray intranasal Q12H Rx Instructions: administer into each nostril magnesium oxide 400 mg magnesium capsule 400 mg PO DAILY meclizine 25 mg tablet 25 mg PO TID PRN polyethylene glycol 3350 [Miralax] 17 gram/dose powder 17 g PO DAILY PRN pantoprazole 40 mg tablet,delayed release (DR/EC) 40 mg PO DAILY cholecalciferol (vitamin D3) 125 mcg (5,000 unit) capsule 125 mcg PO DAILY loratadine [Allergy Relief (loratadine)] 10 mg tablet 10 mg PO DAILY memantine 5 mg tablet 5 mg PO BID ibuprofen 400 mg tablet 400 mg PO Q6H PRN clonazepam [Klonopin] 0.5 mg Tablet 0.5 mg PO DAILY PRN albuterol sulfate 90 mcg/actuation HFA aerosol inhaler 1 puff INHALATION Q4H PRN Patient Comments: INHALE TWO PUFFS BY MOUTH EVERY 4 HOURS NEEDED FOR COUGH, WHEEZE, OR SHORTNESS OF BREATH acetaminophen 500 mg tablet 1,000 mg PO Q8H PRN (Reason: pain) Qty: 90 3RF Discharge Instructions Instructions: Shoulder Sprain ED Additional Instructions: You were seen in the emergency department for the sprain of your left shoulder, there is no fracture or dislocation seen on x-ray, this does not rule out a possible rotator cuff injury or just a bad sprain/contusion. Please use the provided sling very intermittently and remove it many times throughout the day to perform pendulum exercises, please rest and ice the area, take 1000 mg of Tylenol 3 times per day, take 400 mg of ibuprofen 4 times per day, follow-up with orthopedics if failure to improve after 1 to 2 weeks. Referrals: [facility] [Provider Group] Evelyne Maloney [Primary Care Provider] - Discharge Data Discharge Date/Time-TO BE ENTERED AT DEPARTURE: 01/05/25 21:52 HPI General Date/Time Provider Initiated Documentation: 01/05/25 18:21 . HPI Narrative: 69 year-old female presents to ED today by POV/ambulating with a chief complaint of trip & fall while picking up a heavy object at home earlier, fell onto L shoulder. Quality described as pain at proximal humerus of L shoulder, fell with direct blunt impact to shoulder, no radiation to deformity, numbness/tingling, endorses ROM deficit to pain, denies neck pain/headstrike/LOC, denies bruising or severe swelling, denies proximal clavicle pain. Severity is described as moderate to severe. Palliating factors include nothing specific attempted. Provoking factors include movement. Events leading up to the incident/Associated Symptoms: Patient has known calcific tendinitis. Patient not anticoagulated. Related Data Home Medications ?Medication ?Instructions ?Recorded ?Confirmed clonazepam 0.5 mg tablet (Klonopin) 0.5 mg PO DAILY PRN 02/09/21 01/05/25 bupropion HCl 200 mg tablet,12 hr 200 mg PO DAILY 02/10/23 01/05/25 sustained-release cholecalciferol (vitamin D3) 125 125 mcg PO DAILY 02/10/23 01/05/25 mcg (5,000 unit) capsule fluticasone propionate 50 1 spray intranasal Q12H 02/10/23 01/05/25 mcg/actuation nasal spray,suspension loratadine 10 mg tablet (Allergy 10 mg PO DAILY 02/10/23 01/05/25 Relief (loratadine)) magnesium oxide 400 mg PO DAILY 02/10/23 01/05/25 meclizine 25 mg tablet 25 mg PO TID PRN 02/10/23 01/05/25 memantine 5 mg tablet 5 mg PO BID 02/10/23 01/05/25 pantoprazole 40 mg tablet,delayed 40 mg PO DAILY 02/10/23 01/05/25 release polyethylene glycol 3350 17 17 g PO DAILY PRN 02/10/23 01/05/25 gram/dose oral powder (Miralax) albuterol sulfate 90 mcg/actuation 1 puff inhalation Q4H PRN 09/06/23 01/05/25 aerosol inhaler acetaminophen 500 mg tablet 1,000 mg (2 x 500 mg) PO Q8H PRN 09/09/23 01/05/25 pain #90 tabs ibuprofen 400 mg tablet 400 mg PO Q6H PRN 09/21/23 01/05/25 Previous Rx's ?Medication ?Instructions ?Recorded acetaminophen 500 mg tablet 1,000 mg (2 x 500 mg) PO Q8H PRN 09/09/23 pain #90 tabs Allergies Allergy/AdvReac Type Severity Reaction Status Date / Time promethazine (From Phenergan) AdvReac Psychosis Unverified 01/05/25 18:23 General Stated Complaint: Orthopedic KERVIN: 4 Review of Systems All systems reviewed & are unremarkable except as noted in HPI and below Exam Narrative Exam Narrative: GENERAL APPEARANCE: Well-nourished, non-toxic, awake and alert, atraumatic, no acute distress. SKIN: Warm, pink, dry, intact, without rashes/lesions/ulcerations. HEAD: Normocephalic, atraumatic, normal hair distribution for gender/age. EYES: Normal conjunctiva, no exudates on lids/lashes. ENT: Nares patent, no circumoral cyanosis, no facial swelling NECK: Supple, trachea midline, painless cervical ROM. LUNGS/CHEST: Non-labored respirations, normal A/P diameter, symmetrical expansion, no chest wall deformity HEART (CV/PV): Regular rate, no peripheral edema, no JVD. ABDOMEN: Soft, non-distended, no guarding. MSK: Normal ROM, no swelling/deformity to R UE or bilat LEs, moving all extremities without weakness save for acute L UE, no cyanosis, spine midline without tenderness, normal curvature, L UE: Tenderness to the proximal humerus without crepitus, no squared off appearance or deformity, no ecchymosis, scapula stable without crepitus, clavicle stable without crepitus, range of motion intact at the elbow, left radial pulse 2+ NEURO: Mental Status AAOx4 - alert to person, place, time, events No facial droop, no forehead involvement. Motor: No focal weakness - strength 5/5 in bilateral UEs and LEs, proximal and distal, symmetric. Sensory: sensation intact to light touch globally. Gait normal: patient ambulated without ataxia into ED room. PSYCH: euthymic, cooperative, pleasant, appropriate speech Course Vital Signs Vital signs: Vital Signs Temperature 37.8 C H 01/05/25 18:16 Pulse 97 H 01/05/25 18:16 Respiratory Rate 22 01/05/25 18:16 Blood Pressure 188/75 H 01/05/25 18:16 Pulse Oximetry 98 01/05/25 18:16 Temperature 37.8 C H 01/05/25 18:16 Temperature Source Tympanic 01/05/25 18:16 Pulse 97 H 01/05/25 18:16 Respiratory Rate 22 01/05/25 18:16 Blood Pressure 188/75 H 01/05/25 18:16 Pulse Oximetry 98 01/05/25 18:16 Pain Level 8 01/05/25 18:41 Medical Decision Making This dictation utilizes [id number] dictation software and may contain unedited grammatical errors. 69 year-old female presents to ED today by POV/ambulating with a chief complaint of trip & fall while picking up a heavy object at home earlier, fell onto L idalia ulder, R-hand dominant. Quality described as pain at proximal humerus of L shoulder, fell with direct blunt impact to shoulder, no radiation to deformity, numbness/tingling, endorses ROM deficit to pain, denies neck pain/headstrike/LOC, denies bruising or severe swelling, denies proximal clavicle pain. Severity is described as moderate to severe. Palliating factors include nothing specific attempted. Provoking factors include movement. Events leading up to the incident/Associated Symptoms: Patient has known calcific tendinitis. Patients' medical history: History of shoulder surgery. Family and social history: Noncontributory. Pertinent exam findings / vital signs include tenderness at the proximal humerus without crepitus, no squared off appearance, no clavicle tenderness, no scapular tenderness or crepitus, no ecchymosis, left radial pulse 2+, range of motion intact at the elbow, not cooperative with special tests of shoulder for rotator cuff assessment due to extreme limit of range of motion due to pain. Differential / pathologies of concern include sprain/strain, fracture, dislocation, rotator cuff injury, glenohumeral injury Diagnostic studies of: - XR L shoulder-no acute fracture or dislocation seen, known calcific tendinitis- no clinical signs of CHF/respiratory distress Interventions of: - Provided sling due to extreme pain with range of motion but recommend she take it out as often as possible to perform pendulum exercises, recommend therapeutic dosing of Tylenol and ibuprofen and follow-up with orthopedics referred. ED Course/Assessment/Plan: 69-year-old female was moving a heavy object at her home today, fell with blunt impact to left shoulder having extreme pain with any attempted movement, x-ray shows no dislocation and no fracture, not cooperative with special test exam, likely due to acute pain and sling use for comfort but pendulum exercises to prevent frozen shoulder, recommend therapeutic dosing of Tylenol and ibuprofen and ice to the shoulder, provided orthopedic referral for outpatient follow-up, strict return criteria for any signs of neurovascular compromise to left upper extremity. Findings not consistent with fracture, dislocation, neurovascular compromise, other trauma. Disposition of Sprain of Left Shoulder. Patient verbalized understanding of the plan and return to ED criteria and engaged in shared decision making. Medical Records Medical records reviewed: Yes I reviewed the patient's medical records. Imaging Data Radiologic Study: Attestation: I personally reviewed and interpreted this imaging study as follows: Imaging: X-Ray Radiologist's impression: Exam: XR Left Shoulder Exam date and time: 01/05/2025 7:03 PM Age: 69 years old Clinical indication: Other: L shoulder; Fall/trauma TECHNIQUE: Imaging protocol: Radiologic exam of the left shoulder. Views: 2 or more views. COMPARISON: CR XR CHEST 2V PA LATERAL 07/18/2024 5:12 PM FINDINGS: Bones/joints: No acute fracture. No dislocation. Mild acromioclavicular narrowing with osteophytes. Calcifications noted at the supraspinatus/infraspinatus tendon region. Degenerative changes and fusion hardware are noted in the cervical spine. Lungs: The pulmonary vessels appear congested. Soft tissues: Unremarkable IMPRESSION: 1. No acute osseous abnormality. 2. Suspect calcific tendinitis. 3. Consider congestive heart failure/fluid overload. Dictated and Authenticated by: Galindo Root MD. Quality:[facility] Health Related Social Needs: No Data to Display PFSH All Active Problems (Updated 01/05/25 @ 21:34 by RODERICK Brewer) Sprain of left shoulder (Acute) Closed fracture of left tibial plateau (Acute 09/06/23) S/P ORIF 09/09 Mild cognitive impairment (Acute) Contusion of hand, left (Acute) Medical History Reflux gastritis Memory loss Hyperlipidemia Bursitis disorder Reactive airway disease GERD (gastroesophageal reflux disease) Atopic neurodermatitis Hearing loss Migraine Allergic rhinitis Menopause Mood disorder Overactive bladder Lumbago without sciatica Dysuria Degenerative disc disease Hypercholesterolemia Trochanteric bursitis, left hip Plantar fasciitis, bilateral Restless leg syndrome Meniere disease Surgical History Hx of spinal surgery plate C2-C3 S/P carpal tunnel release S/P arthroscopic knee surgery S/P bilateral foot surgery Hx of shoulder surgery S/P adenoidectomy History of tonsillectomy Social History Smoking/Tobacco Use Status: Never Smoking risk assessment performed?: Yes Alcohol Intake: current Alcohol Intake frequency: a few times a week Alcohol type: beer Drug use: Never Substance use type: does not use Housing: house Do you feel safe at home: Yes Do you feel safe in your relationship?: Yes
--- NOTE | 2025-01-05 20:23 | DI.VRAD_ITS ---
PROCEDURE INFORMATION: Exam: XR Left Shoulder Exam date and time: 01/05/2025 7:03 PM Age: 69 years old Clinical indication: Other: L shoulder; Fall/trauma TECHNIQUE: Imaging protocol: Radiologic exam of the left shoulder. Views: 2 or more views. COMPARISON: CR XR CHEST 2V PA LATERAL 07/18/2024 5:12 PM FINDINGS: Bones/joints: No acute fracture. No dislocation. Mild acromioclavicular narrowing with osteophytes. Calcifications noted at the supraspinatus/infraspinatus tendon region. Degenerative changes and fusion hardware are noted in the cervical spine. Lungs: The pulmonary vessels appear congested. Soft tissues: Unremarkable IMPRESSION: 1. No acute osseous abnormality. 2. Suspect calcific tendinitis. 3. Consider congestive heart failure/fluid overload. Dictated and Authenticated by: Galindo Root MD. Orderin Loree Mix MD
[2025-01-05 21:52] VITALS: BP 147/69; PULSE 71; RESP 18; TEMP 36.8; O2SAT 94
--- NOTE | 2025-01-06 17:17 | NUR.NOTE ---
Access chart to review workload messages for referral. Nursing Note:
== END 2025-01-05 21:52 | disposition home or self-care (01) ==
PROVIDERS: Emergency Provider Physician Assistant; PCP Nurse Practitioner
DX: S43.402A Unspecified sprain of left shoulder joint, initial encounter (principal); W19.XXXA Unspecified fall, initial encounter
CPT/HCPCS: 96372; 99284; 73030; 99283; J1885

== ENCOUNTER → 2025-01-15 12:54 | Outpatient (BNVA) | payer MEDICARE, SELFPAY | PROVIDERS: PCP Nurse Practitioner; Referring Provider Nurse Practitioner; Visit Provider Student in an Organized Health Care Education/Training Program | DX: M75.102 Unspecified rotator cuff tear or rupture of left shoulder, not specified as traumatic (principal); W10.8XXA Fall (on) (from) other stairs and steps, initial encounter | CPT/HCPCS: 99214 ==

== ENCOUNTER 2025-01-18 00:14 | Outpatient (CLI) | payer MEDICARE, SELFPAY ==
--- NOTE | 2025-01-18 15:35 | DI.MRI_ITS ---
Exam(s) MR UPPER JOINT LT WO EXAM: MR UPPER JOINT LT WO CLINICAL HISTORY: PAIN,SURGICAL PLANNING,lt rotator cuff tear,m75.102. TECHNIQUE: Multiplanar multisequence MRI was performed. COMPARISON: CR,XR XR SHOULDER LT COMPLETE 2+V from 01/05/2025 FINDINGS: The examination is limited due to patient motion artifact. BONES: There is no fracture or contusion pattern. JOINTS: The acromioclavicular joint is normal. There is superior subluxation of the humeral head rela tive to the glenoid secondary to the rotator cuff tear. There is a joint effusion present. TENDONS: Supraspinatus: There is a complete tear of the supraspinatus tendon with retraction almost to the lev el of the acromioclavicular joint. Infraspinatus: There is a large probable complete tear of the infraspinatus tendon with retraction. Subscapularis: Unremarkable. [place]: Unremarkable. Biceps and [place]: Unremarkable. MUSCLES: There is mild fatty atrophy of the infraspinatus and supraspinatus muscles. GLENOID LABRUM: Unremarkable on this noncontrast examination. SOFT TISSUES: Unremarkable. LIGAMENTS: Unremarkable. OTHER: There is fluid seen in the subacromial subdeltoid bursa. IMPRESSION: 1. The examination is significantly limited by patient motion artifact. Repeat sequences could not b e performed due to the patient's level of discomfort. 2. Complete tear of the supraspinatus tendon with retraction almost to the level of the acromioclavic ular joint. 3. Large tear of the infraspinatus tendon. 4. Superior subluxation of the humeral head relative to the glenoid likely related to the large rotat or cuff tear. 5. Joint effusion and fluid seen in the subacromial subdeltoid bursa. DATA REPOSITORY:
== END 2025-01-18 00:34 ==
LOC: DI 00:14
PROVIDERS: PCP Nurse Practitioner; Visit Provider Student in an Organized Health Care Education/Training Program
DX: M75.122 Complete rotator cuff tear or rupture of left shoulder, not specified as traumatic (principal)
CPT/HCPCS: 73221

== ENCOUNTER → 2025-01-23 08:05 | Outpatient (BNVA) | payer MEDICARE, SELFPAY | PROVIDERS: PCP Nurse Practitioner; Referring Provider Nurse Practitioner; Visit Provider Student in an Organized Health Care Education/Training Program | DX: M75.102 Unspecified rotator cuff tear or rupture of left shoulder, not specified as traumatic (principal) | CPT/HCPCS: 99214 ==

== ENCOUNTER 2025-01-30 00:57 | Outpatient (CLI) | payer MEDICARE, SELFPAY ==
--- NOTE | 2025-01-30 | DI.CT_ITS ---
Exam(s) CT UPPER EXTREMITY LT WO EXAM: CT UPPER EXTREMITY LT WO CLINICAL HISTORY: SURGICAL PLANNING, M75.102 TECHNIQUE: Imaging Protocol: Axial computed tomography images with coronal and sagittal reformatted images were created and reviewed. CONTRAST MATERIAL: Noncontrast COMPARISON: CR,XR XR SHOULDER LT COMPLETE 2+V from 01/05/2025 MR MR UPPER JOINT LT WO from 01/18/2025 FINDINGS: Bones: There is no evidence of fracture or dislocation. The oral head is mildly superiorly positioned low in relation to the glenoid consistent with rotator cuff tear demonstrated on prior MRI. No cellulitic or osteomyelitic changes are identified. There is no evidence of joint space narrowing or cystic degeneration seen. No lytic or sclerotic lesions are identified. Soft Tissues: Normal. IMPRESSION: Minimal degenerative changes. Superior subluxation of the humeral head relate it secondary to large rotator cuff tear.. RADIATION DOSE DELIVERED: 220.08mGy.cm Total DLP DATA REPOSITORY: All CT scans at this facility are submitted to the National Radiology Data Registry (NRDR) Dose Index Registry (DIR) with the [employer] ([employer]). RADIATION OPTIMIZATION: All CT scans at this facility use at least one of these dose optimization te chniques: automated exposure control; mA and/or kV adjustment per patient size (includes targeted exa ms where dose is matched to clinical indication); or iterative reconstruction.
== END 2025-01-30 01:17 ==
LOC: DI 00:59
PROVIDERS: PCP Nurse Practitioner; Visit Provider Student in an Organized Health Care Education/Training Program
DX: M75.102 Unspecified rotator cuff tear or rupture of left shoulder, not specified as traumatic (principal)
CPT/HCPCS: 73200

== ENCOUNTER 2025-02-07 05:57 | Day surgery (SDC) | payer MEDICARE, SELFPAY ==
--- NOTE | 2025-02-06 18:32 | W.ANESPRE ---
General Info Date of Service Date Performed: 02/07/25 Height: 5 ft Weight: 80.739 kg Body Mass Index (BMI): 34.7 Surgical Procedure: Operation Date: 02/07/25 07:40 Proposed Procedure Side Surgeon p Shoulder Reverse Total Arthroplasty, Biceps Tenodesis Left Matt Benavides MD Meds Allergies and Home Medications Allergies Allergy/AdvReac Type Severity Reaction Status Date / Time promethazine (From Phenergan) AdvReac Psychosis Verified 02/07/25 06:12 Home Medication ?Medication ?Instructions ?Recorded clonazepam 0.5 mg tablet (Klonopin) 0.5 mg PO DAILY PRN 02/09/21 bupropion HCl 200 mg tablet,12 hr 200 mg PO DAILY 02/10/23 sustained-release cholecalciferol (vitamin D3) 125 125 mcg PO DAILY 02/10/23 mcg (5,000 unit) capsule fluticasone propionate 50 1 spray intranasal Q12H 02/10/23 mcg/actuation nasal spray,suspension loratadine 10 mg tablet (Allergy 10 mg PO DAILY 02/10/23 Relief (loratadine)) magnesium oxide 400 mg PO DAILY 02/10/23 meclizine 25 mg tablet 25 mg PO TID PRN 02/10/23 memantine 5 mg tablet 5 mg PO BID 02/10/23 pantoprazole 40 mg tablet,delayed 40 mg PO DAILY 02/10/23 release polyethylene glycol 3350 17 17 g PO DAILY PRN 02/10/23 gram/dose oral powder (Miralax) albuterol sulfate 90 mcg/actuation 1 puff inhalation Q4H PRN 09/06/23 aerosol inhaler acetaminophen 500 mg tablet 1,000 mg (2 x 500 mg) PO Q8H PRN 09/09/23 pain #90 tabs ibuprofen 400 mg tablet 400 mg PO Q6H PRN 09/21/23 alprazolam 0.5 mg tablet (Xanax) 0.5 mg PO ONCE PRN Claustrophobia 01/15/25 #2 tabs budesonide-formoterol HFA 160 inhalation 02/07/25 mcg-4.5 mcg/actuation aerosol inhaler (Symbicort) latanoprost 0.005 % eye drops drp 02/07/25 Current Visit Medications: Current Medications Generic Name Dose Route Start Last Admin Trade Name Freq PRN Reason Stop Dose Admin Ringer's Solution 1,000 mls @ 30 mls/hr 02/07/25 06:00 IV 02/07/25 23:59 INFUSION GAVINO Cefazolin Sodium/Dextrose 2 gm in 50 mls @ 100 mls/hr 02/07/25 06:00 Ancef Duplex IVPB 02/07/25 23:59 PREOP GAVINO Tranexamic Acid/Sodium Chloride 1,000 mg in 100 mls @ 600 mls/hr 02/07/25 06:00 IVPB 02/07/25 23:59 PREOP GAVINO IV Miscellaneous Supplies 1 each 02/07/25 06:00 Iv Access IV 02/07/25 23:59 DIRECTED GAVINO Sodium Chloride 0 ml 02/07/25 06:00 Normal Saline Flush 10 Ml Syr IV 02/07/25 23:59 PRN PRN Sodium Chloride 0 ml 02/07/25 06:00 Normal Saline 10 Ml Vial IJ 02/07/25 23:59 DIRECTED PRN Sterile Water 0 ml 02/07/25 06:00 Water,Injection,Sterile 10 Ml Vial IJ 02/07/25 23:59 DIRECTED PRN PFSH Active Problems Active Problems: Problem Status Onset Code Rotator cuff tear, left Acute M75.102 Closed fracture of left tibial plateau Acute 09/06/23 S82.142A Mild cognitive impairment Acute G31.84 Contusion of hand, left Acute S60.222A Medical History Medical History Reflux gastritis Memory loss Hyperlipidemia Bursitis disorder Reactive airway disease GERD (gastroesophageal reflux disease) Atopic neurodermatitis Hearing loss Migraine Allergic rhinitis Menopause Mood disorder Overactive bladder Lumbago without sciatica Dysuria Degenerative disc disease Hypercholesterolemia Trochanteric bursitis, left hip Plantar fasciitis, bilateral Restless leg syndrome Meniere disease Surgical History Surgical History Hx of spinal surgery plate C2-C3 S/P carpal tunnel release S/P arthroscopic knee surgery S/P bilateral foot surgery Hx of shoulder surgery S/P adenoidectomy History of tonsillectomy Tobacco Smoking/Tobacco Use Status: Never Passive smoking exposure: No Alcohol Alcohol Intake: current Alcohol intake frequency: a few times a week Alcohol type: beer Substance Use Substance use: Never Substance use type: does not use Vital Signs and Lab Results Vital Signs Most Recent Vital Signs in EMR: Temp Pulse Resp BP Pulse Ox 36.6 C 82 20 138/64 94 02/07/25 06:20 02/07/25 06:20 02/07/25 06:20 02/07/25 06:20 02/07/25 06:20 Lab Results Blood Type / Crossmatch: No Data to Display Complete Blood Count: No Data to Display Complete Metabolic Panel: No Data to Display Liver Function Panel: No Data to Display Coagulation Panel: No Data to Display Cardiac Panel: No Data to Display Arterial Blood Gas: No Data to Display Venous Blood Gas: No Data to Display Pancreas Panel: No Data to Display Thyroid Panel: No Data to Display Infectious Disease: No Data to Display Blood Cultures: No Data to Display Toxicology Panel: No Data to Display Imaging and Studies Imaging and Studies Study information below may be from another EMR and interpreted by another provider. Please see original notes in EMR for more complete details. EKG Summary: 02/14/22: Exam: Resting ECG Reason for Exam: sob Patient Location: E HR:95 bpm ECG Measurements Heart Rate 95 AXIS WV 138 P 60 QRSd 84 QRS -5 QT 359 T84 QTc 452 Conclusion Sinus rhythm...normal P axis, V-rate 60- 99 Physician: no stemi, stable I have reviewed and I agree with the emergency room physician's ECG interpretation. Electronically signed by: <Electronically signed by Miracle Sales M.D. in [place]> 02/15/22 0807 Cosigned by: Anesthesia Assessment and Plan Anesthesia History Personal History: PONV (no issues with last. ) Family History: No Family History of Anesthesia Complications Exercise Tolerance Exercise Tolerance: Metabolic Equivalents>4 Cardiac & Pulmonary Exam Cardiac Exam: Normal S1/S2 Heart Sounds Pulmonary Exam: Clear Bilateral Breath Sounds Implantable Cardiac Device Does patient have a Pacemaker or an ICD?: No Airway Exam Known Difficult Airway: No Mallampati Class: 4 Mouth Opening: Narrow (< 3cm) Thyromental Distance: Less than 3 cm Neck Range of Motion: Full ROM and History of Cervical Fusion Neck Circumference: Normal Teeth Condition: Normal Dentition ASA Classification ASA Score: ASA 2 Emergency Case?: No NPO Status NPO Status: NPO Clears >2 hours, Solids >8 hours Anesthesia Plan Resuscitation Status: Full Code Anesthesia Technique: General Anesthesia Airway Planned: Endotracheal Tube Pain Management: Surgeon and patient request nerve block Monitors Used: Standard Monitors Preoperative Comments:: 69 yo female for total shoulder. Sig PMHx: RAD (albuterol. Breathing feels good today), sleep apnea, GERD (pantoprazole. well controlled), RLS, menieres (meclizine), memory loss/mild cognitive impairment (Memantine - feels it is helping) Previous Anes: - ORIF tibia, chloro spinal, prop sedation, no issues.
[2025-02-07] VITALS (32 sets, daily range): BP systolic 111–146; BP diastolic 47–86; PULSE 66–82; RESP 16–24; TEMP 36.2–37; O2SAT 90–96; BMI 34.7
[2025-02-07] MEDS: Lactated Ringers 1,000 ML 30 ML IV (06:55)
--- NOTE | 2025-02-07 07:14 | ROE_ITS ---
Operative Note Operative Note PRE-OP DIAGNOSIS: Left: 1. Rotator cuff arthropathy 2. Proximal biceps tendinopathy POST-OP DIAGNOSIS: same PROCEDURE: Left: 1. Reverse total shoulder arthroplasty, CPT # 86193 2. Open biceps tenodesis, CPT # 80187 The child and youth program assistant was medically required as this procedure involves retraction, protection of neurovascular structures, and manipulation of multiple instruments and implants at the same time, which cannot be done without a skilled child and youth program assistant. SURGEON: Matt Benavides SAIL REPAIR PERSON: Eliazar Peters ANESTHESIA TYPE: Local By Surgeon, General LMA/ETT and Primary Nerve Block Refer to Anesthesia Record ESTIMATED BLOOD LOSS: 75 COMPLICATIONS: None Patient was transported to: PACU Patient's condition: stable Implants: [employer] modular glenoid system baseplate 24 mm 10 degree forward [employer] modular glenoid system central post 25 mm [employer] modular glenoid system peripheral locking screws 36 mm inferior, 28 mm superior, 16 mm posterior, none anterior [employer] modular glenoid system glenosphere 36 +4 mm lateralized [employer] humeral stem 135 degrees size 6 [employer] suture cup size 36 posterior offset [employer] spacer size 36 + 6mm [employer] humeral insert size 36 +3 mm constrained Indications: Please see complete medical record for details. Findings: Significant long head biceps tenosynovitis and partial tearing. Deficient superior and posterior superior supraspinatus infraspinatus rotator cuff with balled majority greater tuberosity and anterior superior shoulder escape. High- grade partial tearing subscapularis. Procedure Description: In the operating room, general anesthesia was induced. The patient was positioned beachchair on the operating room table. All bony prominences were well-padded. Preoperative antibiotics were administered. The shoulder was prepped and draped in the usual sterile fashion for shoulder arthroplasty. The correct patient, procedure, and side of the procedure were all verified prior to incision. The deltopectoral approach was preinjected with 0.25% bupivacaine containing epinephrine and taken to the anterior shoulder. Care was taken to bluntly dissect the interval between the deltoid and pectoralis major muscles and to identify the cephalic vein within its fat stripe. The the diminutive vein vein and branches were mobilized laterally with some of the smaller branches coagulated as there was no clear large single structure. Subdeltoid space and conjoined tendon were freed of adhesions. The long head of the biceps tendon was identified just lateral to the lesser tuberosity. The uppermost margin of the pectoralis major tendon was released from the proximal humerus. The long head of the biceps tendon was tenodesed in situ using SutureTape in a figure-of- eight fashion securing it superior margin the pectoralis major tendon. The biceps tendon was amputated and followed proximally to identify the rotator interval. Subscapularis tenotomy was done after examine the underside which was high-grade partial torn from medial biceps subluxation partial tearing and tenotomy used with the tendon readily releasing from the lesser tuberosity. The supraspinous infraspinatus were gone. Appropriate coagulation was achieved especially interiorly. The anatomic neck was cut using an oscillating saw with the humeral head bone brought back table in case there was a need for future bone grafting. The proximal humerus was delivered from the wound with adduction and external rotation. The proximal humeral protection plate was used to provisionally confi rm suture cup and glenosphere size. Reamers were started appropriately posterior to the bicipital groove taking care to maintain in line approach with the humeral canal. Sequential reaming was done from size 5 up to size 6 with the size 7 being clearly too large for the diaphysis. Next, the broaches were sequentially used to open the proximal humerus starting with a size 5 and going up to size 6 and sunk to the appropriate depth while maintaining approximately 25 degrees retroversion. There was good metaphyseal fit and rotational control of the proximal humerus with this size. The posterior offset guide was used to ream for the suture cup. Attention was then turned to the glenoid and retractors were placed and a circumferential release performed using the long head of the biceps remnant to remove soft tissue about the glenoid rim. Care was taken inferiorly to work on bone only between 5 and 7:00 o'clock and bluntly elevate tissues inferiorly. The VIP guide was placed on the glenoid and used to confirm placement and trajectory of the central guidepin. The guidepin was inserted and advanced just through the far cortex ensuring adequate central fixation length. The glenoid was prepared according to lay health advocate specifications for a augmented baseplate and central post. The baseplate was impacted onto the glenoid surface. The locking guide was then used to drill and place appropriately lengthed inferior, superior, and posterior screws at the anterior omitted due to short depth. The [id number] reamer was used to confirm adequate peripheral reaming. The glenosphere was applied with the business support manager and then impacted to engage the [employer] taper. It was then locked with appropriate countersinking of the setscrew. The glenosphere was inspected and found to have good fit, appropriate positioning, and no soft tissue or bony impingement. Attention was then turned back to the proximal humerus. The humeral trial cup was connected. Trialing was commenced with +3 mm liner. The shoulder was reduced and taken through range of motion. Trial components were built up to +6 mm spacer and +3 mm liner to achieve good stability and appropriate tension on the deltoid and conjoined tension. The trial components were removed from the proximal humerus. The wound was copiously irrigated with normal saline. The the proximal humeral stem and suture cup were assembled and brought over the proximal humerus. There was a cyst in the suture cup metaphyseal junction posteriorly that was fully filled and packed with bone graft cancellous from the back of the humeral head. A small amount of vancomycin powder was distributed in the proximal humerus. The humeral component and suture cup were impacted into place with excellent implant stability and bone grafting around the posterior cyst margin. The trial spacer and liner were added, and the shoulder was reduced and range of motion, stability, and tension confirmed to be appropriate. The final spacer and liner were then connected, constrained liner chosen due to devoid rotator cuff and anterior superior escape, and range of motion, stability, and tension confirmed to be excellent. The shoulder was copiously irrigated with Betadine and normal saline. Vancomycin powder was distributed deeply about the shoulder and through subcutaneous tissues. The deltopectoral interval was approximated with 2-0 Mo nocryl burying the cephalic vein. Subcutaneous tissue was irrigated then closed using 2-0 Monocryl in a buried interrupted fashion. Skin was closed using 3-0 Monocryl in a buried subcuticular fashion. Skin glue was applied to the incision. A silver impregnated bandage was placed over the incision. The extremity was placed into a shoulder immobilizer. The patient awoke from anesthesia without complication and was taken to the recovery room in stable condition. Date of Procedure: 02/07/25
--- NOTE | 2025-02-07 07:15 | W.PM.DSUDISC ---
Discharge Plan Disposition Patient Disposition: Home Discharge Details Attending Provider: Matt Benavides Primary Care Provider: Evelyne Maloney Home Meds and New Rx's Prescriptions: No Action alprazolam [Xanax] 0.5 mg tablet 0.5 mg PO ONCE PRN (Reason: Claustrophobia) Qty: 2 0RF Rx Instructions: Take 1 60 minutes prior to MRI. May take an additional 1 if still anxious 30 minutes prior to MRI. bupropion HCl 200 mg tablet sustained-release 12 hr 200 mg PO DAILY fluticasone propionate 50 mcg/actuation spray,suspension 1 spray intranasal Q12H Rx Instructions: administer into each nostril magnesium oxide 400 mg magnesium capsule 400 mg PO DAILY meclizine 25 mg tablet 25 mg PO TID PRN polyethylene glycol 3350 [Miralax] 17 gram/dose powder 17 g PO DAILY PRN pantoprazole 40 mg tablet,delayed release (DR/EC) 40 mg PO DAILY cholecalciferol (vitamin D3) 125 mcg (5,000 unit) capsule 125 mcg PO DAILY loratadine [Allergy Relief (loratadine)] 10 mg tablet 10 mg PO DAILY memantine 5 mg tablet 5 mg PO BID ibuprofen 400 mg tablet 400 mg PO Q6H PRN clonazepam [Klonopin] 0.5 mg Tablet 0.5 mg PO DAILY PRN albuterol sulfate 90 mcg/actuation HFA aerosol inhaler 1 puff INHALATION Q4H PRN Patient Comments: INHALE TWO PUFFS BY MOUTH EVERY 4 HOURS NEEDED FOR COUGH, WHEEZE, OR SHORTNESS OF BREATH acetaminophen 500 mg tablet 1,000 mg PO Q8H PRN (Reason: pain) Qty: 90 3RF latanoprost 0.005 % drops budesonide-formoterol [Symbicort] 160-4.5 mcg/actuation HFA aerosol inhaler INHALATION Patient Comments: INHALE TWO PUFFS BY MOUTH TWICE A DAY Discharge Orders Discharge Orders: Discharge Order (Routine); Ordered 02/07/25 Ordered By: Eliazar Peters DS: Diagnosis Discharge Diagnosis (1) Rotator cuff tear, left: Status: Acute
[2025-02-07] MEDS: ceFAZolin 2 GM/50 ML BAG IVPB (07:56)
--- NOTE | 2025-02-07 08:00 | ANES.NERVE_ITS ---
Nerve Block Single Injection Procedure Date and Time Date Performed: 02/07/25 Procedure Start: 07:20 Location Where Procedure Performed Procedure Location: Day Surgery Unit Reason Performed: Postoperative Analgesia Requesting Provider: Matt Benavides Timeout Performed Timeout Performed: Yes Monitoring Used ECG, Blood Pressure and SpO2 Sterility Sterility: Hand Hygiene, Surgical Cap, Surgical Mask, Sterile Gloves and Chlorhexidine Sedation Given During Procedure Sedation Given (Indicate Dose Given): Propofol IV (20 + 10 + 20) Dose:: 50 mg Patient Mental Status Patient Mental Status: Sedate with meaningful communication Nerve Block 1st Nerve Block: Laterality: Left Block Type: Interscalene Ultrasound Image Saved?: Yes Needle / Catheter Used: 100mm SonoPlex II Local Anesthetic Bolus (Indicate Dose Given): Lidocaine used for local infiltration of skin, Bupivacaine 0.5% Dose:: 10 mL and Exparel Dose:: 10 mL Additives (Indicate Dose Given): None Ultrasound: Sterile probe cover and gel used Nerve Stimulator: Supplement to Ultrasound use and No twitch or p arasthesia noted < 0.5 mA (0.6) Paresthesia: None Procedure Tolerated: Patient did not tolerate well Procedure Outcome: Successful Procedure Comment: Midaz initally pulled for sedation, but switched to prop due to her c ognitive/memory issues. Had a hard time with the local on the skin being very painful for her. She also had a very challenging time with slowing her breathing as the needle was advanced. Due to this verbal reassurance was given, additional propofol was given, and needle was slowly advanced. Would recommend considering regional under [place] in the future. Performed By: Sonny Sierra
[2025-02-07] MEDS: TRANEXAMIC ACID/SOD. CHL. 1,000 MG/100 ML BAG 600 MG IVPB (08:05)
[2025-02-07] MEDS: Bupivacaine 0.25% Pres-Free W/EPI 30 ML VIAL (08:20)
[2025-02-07] MEDS: Vancomycin 1,000 MG VIAL 1000 MG (08:20)
--- NOTE | 2025-02-07 10:21 | W.PM.DS.N ---
Date of service: 02/07/25 DS: Diagnosis Discharge Diagnosis (1) Rotator cuff tear, left: Status: Acute Discharge Plan Disposition Patient Disposition: Home Discharge Details Attending Provider: Matt Benavides Primary Care Provider: Evelyne Maloney Home Meds and New Rx's Prescriptions: No Action alprazolam [Xanax] 0.5 mg tablet 0.5 mg PO ONCE PRN (Reason: Claustrophobia) Qty: 2 0RF Rx Instructions: Take 1 60 minutes prior to MRI. May take an additional 1 if still anxious 30 minutes prior to MRI. bupropion HCl 200 mg tablet sustained-release 12 hr 200 mg PO DAILY fluticasone propionate 50 mcg/actuation spray,suspension 1 spray intranasal Q12H Rx Instructions: administer into each nostril magnesium oxide 400 mg magnesium capsule 400 mg PO DAILY meclizine 25 mg tablet 25 mg PO TID PRN polyethylene glycol 3350 [Miralax] 17 gram/dose powder 17 g PO DAILY PRN pantoprazole 40 mg tablet,delayed release (DR/EC) 40 mg PO DAILY cholecalciferol (vitamin D3) 125 mcg (5,000 unit) capsule 125 mcg PO DAILY loratadine [Allergy Relief (loratadine)] 10 mg tablet 10 mg PO DAILY memantine 5 mg tablet 5 mg PO BID ibuprofen 400 mg tablet 400 mg PO Q6H PRN clonazepam [Klonopin] 0.5 mg Tablet 0.5 mg PO DAILY PRN albuterol sulfate 90 mcg/actuation HFA aerosol inhaler 1 puff INHALATION Q4H PRN Patient Comments: INHALE TWO PUFFS BY MOUTH EVERY 4 HOURS NEEDED FOR COUGH, WHEEZE, OR SHORTNESS OF BREATH acetaminophen 500 mg tablet 1,000 mg PO Q8H PRN (Reason: pain) Qty: 90 3RF latanoprost 0.005 % drops budesonide-formoterol [Symbicort] 160-4.5 mcg/actuation HFA aerosol inhaler INHALATION Patient Comments: INHALE TWO PUFFS BY MOUTH TWICE A DAY Discharge Instructions Additional Instructions: Surgery: Left reverse total shoulder arthroplasty (constrained liner) with biceps tenodesis 02/07/2025 Activity: Do not lift anything heavier than a coffee. You should keep your arm at your side in a neutral position at all times except for gentle range of motion exercises, physical therapy, and essential activities. You should use the sling whenever you are out of the house. At home it is best to remove the sling and rest the arm on a pillow at your side or support the operative side with your other hand. A physical therapy prescription will be sent electronically to start in about 3 weeks. Standard Reverse TSA Protocol. Prescriptions: Aspirin 81 mg take 1 daily to prevent a blood clot for 7 days, starting tomorrow morning Naproxen 250 mg take 1-2 every 12 hours with a meal as needed for moderate pain [Oxycodone 5 mg take 1-2 every 4-6 hours as needed for severe pain] [Tramadol 50 mg take 1 every 8 hours as needed for severe pain] You may use [id number] Tylenol (acetaminophen) as needed for mild pain. These pain medications may be taken all at once or in different combinations as needed. Also, recommend Colace (docusate) as a stool softener as surgery and pain medicine cause constipation. You may try [id number] diphenhydramine (Benadryl) 25-50 mg nightly as a sleep aid Dressings: Leave dressing in place until follow-up. Keep clean and dry at all times. No showers please. Follow-up: 10-[address] Benavides You may take off the leg compression stockings this evening at home. You may also leave them on a few days longer if you have a history of leg swelling or edema. Please call the office during business hours with any questions or concerns. Let us know right away if you develop any redness, drainage, fevers, chest pain, or trouble breathing. Do not drink alcohol or drive for at least 24 hours after anesthesia. Discharge Orders Discharge Orders: Discharge Order (Routine); Ordered 02/07/25 Ordered By: Eliazar Peters DS: Summary Quality:[facility] Health Related Social Needs: No Data to Display DS: Data Vitals/I&O Vitals and I&O: Vital Signs Temperature 98.6 F 02/07/25 07:09 Temperature Source Skin 02/07/25 07:09 Pulse 79 02/07/25 07:09 Pulse Rhythm Regular 02/07/25 06:20 Respiratory Rate 24 02/07/25 07:09 Blood Pressure 128/86 02/07/25 07:09 Blood Pressure Mean 100 02/07/25 07:09 Blood Pressure Position Sitting 02/07/25 07:09 Pulse Oximetry 93 02/07/25 07:09 Oxygen Delivery Method Room Air 02/07/25 07:09 Oxygen Flow Rate 0 02/07/25 07:09 Pain Level 5 02/07/25 07:09 Comment 0725: post block vitals. Pt. sleepy and weepy. Sonny Lopez, and Matthew Vines cRNAs in room. Pt. denies ringing in her ears, numbness around mouth or metallic taste in mouth. Pt. on central monitor. This RN and Matthew Vines [employer] SCI[employer] DEPARTMENT CHAIR with pt. until she was taken via stretcher by Zurdo Roberts RN to OR at 0730 02/07/25 07:09 Intake & Output 02/06/25 02/06/25 02/07/25 11:59 23:59 11:59 Intake Total 650 / 650 Output Total 75 / 75 Balance 575 / 575 Weight 177 lb 15.984 oz 176 lb 9.444 oz Intake: IV 650 / 650 Output: Estimated Blood Loss 75 / 75 PFSH All Active Problems (Updated 02/07/25 @ 10:20 by Matt Benavides MD) Tendinitis of long head of biceps brachii of left shoulder (Acute) Rotator cuff tear, left (Acute) Closed fracture of left tibial plateau (Acute 09/06/23) S/P ORIF 09/09 Mild cognitive impairment (Acute) Contusion of hand, left (Acute) Medical History Reflux gastritis Memory loss Hyperlipidemia Bursitis disorder Reactive airway disease GERD (gastroesophageal reflux disease) Atopic neurodermatitis Hearing loss Migraine Allergic rhinitis Menopause Mood disorder Overactive bladder Lumbago without sciatica Dysuria Degenerative disc disease Hypercholesterolemia Trochanteric bursitis, left hip Plantar fasciitis, bilateral Restless leg syndrome Meniere disease Surgical History Hx of spinal surgery plate C2-C3 S/P carpal tunnel release S/P arthroscopic knee surgery S/P bilateral foot surgery Hx of shoulder surgery S/P adenoidectomy History of tonsillectomy Social History Smoking/Tobacco Use Status: Never Smoking risk assessment performed?: Yes Alcohol Intake: current Alcohol Intake frequency: a few times a week Alcohol type: beer Drug use: Never Substance use type: does not use Details: alcohol: t-2, one beer Housing: house Do you feel safe at home: Yes Do you feel safe in your relationship?: Yes
--- NOTE | 2025-02-07 10:47 | W.PM.DSUDISC ---
Date of service: 02/07/25 Discharge Plan Disposition Patient Disposition: Home Condition: Stable Discharge Details Attending Provider: Matt Benavides Primary Care Provider: Evelyne Maloney Home Meds and New Rx's Prescriptions: New naproxen 250 mg tablet 250 - 500 mg PO BID PRN (Reason: Moderate pain) Qty: 40 0RF oxycodone 5 mg tablet 5 - 10 mg PO Q4H PRN (Reason: Moderate to severe pain) Qty: 18 0RF aspirin 81 mg tablet,delayed release (DR/EC) 81 mg PO DAILY 7 Days Qty: 7 0RF Continued alprazolam [Xanax] 0.5 mg tablet 0.5 mg PO ONCE PRN (Reason: Claustrophobia) Qty: 2 0RF Rx Instructions: Take 1 60 minutes prior to MRI. May take an additional 1 if still anxious 30 minutes prior to MRI. bupropion HCl 200 mg tablet sustained-release 12 hr 200 mg PO DAILY fluticasone propionate 50 mcg/actuation spray,suspension 1 spray intranasal Q12H Rx Instructions: administer into each nostril magnesium oxide 400 mg magnesium capsule 400 mg PO DAILY meclizine 25 mg tablet 25 mg PO TID PRN polyethylene glycol 3350 [Miralax] 17 gram/dose powder 17 g PO DAILY PRN pantoprazole 40 mg tablet,delayed release (DR/EC) 40 mg PO DAILY cholecalciferol (vitamin D3) 125 mcg (5,000 unit) capsule 125 mcg PO DAILY loratadine [Allergy Relief (loratadine)] 10 mg tablet 10 mg PO DAILY memantine 5 mg tablet 5 mg PO BID ibuprofen 400 mg tablet 400 mg PO Q6H PRN clonazepam [Klonopin] 0.5 mg Tablet 0.5 mg PO DAILY PRN albuterol sulfate 90 mcg/actuation HFA aerosol inhaler 1 puff INHALATION Q4H PRN Patient Comments: INHALE TWO PUFFS BY MOUTH EVERY 4 HOURS NEEDED FOR COUGH, WHEEZE, OR SHORTNESS OF BREATH acetaminophen 500 mg tablet 1,000 mg PO Q8H PRN (Reason: pain) Qty: 90 3RF latanoprost 0.005 % drops budesonide-formoterol [Symbicort] 160-4.5 mcg/actuation HFA aerosol inhaler INHALATION Patient Comments: INHALE TWO PUFFS BY MOUTH TWICE A DAY Discharge Instructions Additional Instructions: Surgery: Left reverse total shoulder arthroplasty (constrained liner) with biceps tenodesis 02/07/2025 Activity: Do not lift anything heavier than a coffee. You should keep your arm at your side in a neutral position at all times except for gentle range of motion exercises, physical therapy, and essential activities. You should use the sling whenever you are out of the house. At home it is best to remove the sling and rest the arm on a pillow at your side or support the operative side with your other hand. A physical therapy prescription will be sent electronically to start in about 3 weeks. Standard Reverse TSA Protocol. Prescriptions: Aspirin 81 mg take 1 daily to prevent a blood clot for 7 days, starting tomorrow morning Naproxen 250 mg take 1-2 every 12 hours with a meal as needed for moderate pain Oxycodone 5 mg take 1-2 every 4-6 hours as needed for severe pain You may use [id number] Tylenol (acetaminophen) as needed for mild pain. These pain medications may be taken all at once or in different combinations as needed. Also, recommend Colace (docusate) as a stool softener as surgery and pain medicine cause constipation. You may try [id number] diphenhydramine (Benadryl) 25-50 mg nightly as a sleep aid Dressings: Leave dressing in place until follow-up. Keep clean and dry at all times. No showers please. Follow-up: 10-[address] Benavides You may take off the leg compression stockings this evening at home. You may also leave them on a few days longer if you have a history of leg swelling or edema. Please call the office during business hours with any questions or concerns. Let us know right away if you develop any redness, drainage, fevers, chest pain, or trouble breathing. Do not drink alcohol or drive for at least 24 hours after anesthesia. Stand Alone Forms: Anesthesia Discharge Inst., [place].Nerve Block Instructions, Saurabh Mcclure ([facility]) Referrals: Matt Benavides MD [ [facility] STAFF PHYSICIAN] - 02/19/25 8:30 am Discharge Orders Discharge Orders: Discharge Order (Routine); Ordered 02/07/25 Ordered By: Eliazar Peters DS: Diagnosis Discharge Diagnosis (1) Rotator cuff tear, left: Status: Acute (2) Tendinitis of long head of biceps brachii of left shoulder: Status: Acute
--- NOTE | 2025-02-07 10:53 | W.ANESPOSTOP ---
Postoperative Evaluation Date, Time and Location Date Performed: 02/07/25 Time Performed: 10:53 Patient Location: Day Surgery Unit Vital Signs Most Recent Imported Vital Signs: Most Recent Vital Signs Temp Pulse Resp BP Pulse Ox 36.3 C L 74 17 137/71 94 02/07/25 10:21 02/07/25 10:46 02/07/25 10:46 02/07/25 10:46 02/07/25 10:46 Pain Score Most Recent Pain Score: Most Recent Pain Score Pain Level 0 02/07/25 10:50 Assessment Mental Status: Awake (Alert & Oriented to Patient Baseline) Airway and Respiratory Function: Patent airway with normal (patient baseline) respiratory exam Cardiovascular Function: Hemodynamically Stable Hydration Status: Adequately Hydrated Nausea & Vomiting: No Nausea or Vomiting Pain: Pt. Denies Any Pain Peripheral Nerve Block: Patient did not receive a nerve block
[2025-02-07] MEDS: ceFAZolin 1 GM/50 ML BAG IVPB (11:23)
--- NOTE | 2025-02-07 11:30 | DI.RAD_ITS ---
Exam(s) XR SHOULDER LT COMPLETE 2+V EXAM: XR SHOULDER LT COMPLETE 2+V CLINICAL HISTORY: Reverse TSA. TECHNIQUE: 2D digital imaging was performed. Two images were obtained. Y and Grashey views were obt ained. COMPARISON: CR,XR XR SHOULDER LT COMPLETE 2+V from 01/05/2025 FINDINGS: BONES: The patient is now status post left reverse total shoulder arthroplasty. No fracture or dislo cation. JOINTS: The orthopedic hardware is in good position. No evidence of hardware loosening. There is a prior anterior cervical disc fusion. SOFT TISSUE: Atelectatic changes are seen in the left lung base. IMPRESSION: Status post left total reverse shoulder arthroplasty. DATA REPOSITORY: RADIATION DOSE DELIVERED:
[2025-02-07] MEDS: Lactobacillus Acidophilus CAP 1 CAP PO (11:53)
--- NOTE | 2025-02-07 14:45 | RT.EKG_ITS ---
APPROVED REPORT Exam: Resting ECG Reason for Exam: chest pain Patient Location: O HR:71 bpm ECG Measurements Heart Rate 71 AXIS NC 153 P 39 QRSd 80 QRS -19 QT 399 T 53 QTc 435 Conclusion Sinus rhythm...normal P axis, V-rate 60- 99 Normal Electrocardiogram
== END 2025-02-07 16:40 | disposition home or self-care (01) ==
PROVIDERS: PCP Nurse Practitioner; Visit Provider Student in an Organized Health Care Education/Training Program
PROC: (CPT 23472; principal; 2025-02-07 07:30)
DX: M75.102 Unspecified rotator cuff tear or rupture of left shoulder, not specified as traumatic (principal); M75.22 Bicipital tendinitis, left shoulder; G89.18 Other acute postprocedural pain
CPT/HCPCS: 23472; C1713; 23430; 64415; 73030; 93005; 93010; J0131; J0665; J0666; J0690; J1100; J1885; J2250; J2405; J2704; J3370

== ENCOUNTER 2025-02-19 08:46 | Outpatient (CLI) | payer MEDICARE, SELFPAY ==
--- NOTE | 2025-02-19 08:44 | DI.RAD_ITS ---
Exam(s) XR SHOULDER LT COMPLETE 2+V EXAM: XR SHOULDER LT COMPLETE 2+V CLINICAL HISTORY: F/U LEFT RTSA. TECHNIQUE: 2D digital imaging was performed. COMPARISON: CR XR SHOULDER LT COMPLETE 2+V from 02/07/2025 FINDINGS: Two views There is satisfactory position alignment of the components of the reverse prosthesis. No fracture or loosening evident. No radiographic evidence of osteomyelitis. There is still some air-gas in the soft tissues. Surgery was 02/07/2025. Correlation with any clini belgica signs of infection recommended. IMPRESSION: Recently placed prosthesis appears satisfactory. There is some remaining air-gas in the soft tissues. Correlation with any clinical signs of infectio n is recommended. DATA REPOSITORY: RADIATION DOSE DELIVERED:
== END 2025-02-19 08:47 | disposition home or self-care (01) ==
LOC: DIORS 08:46
PROVIDERS: PCP Nurse Practitioner; Referring Provider Nurse Practitioner; Visit Provider Student in an Organized Health Care Education/Training Program
DX: M75.102 Unspecified rotator cuff tear or rupture of left shoulder, not specified as traumatic (principal); Z47.89 Encounter for other orthopedic aftercare
CPT/HCPCS: 99024; 73030

== ENCOUNTER 2025-03-27 02:01 | Outpatient (CLI) | payer MEDICARE, SELFPAY ==
--- NOTE | 2025-03-27 14:22 | DI.RAD_ITS ---
Exam(s) XR FOOT RT COMPLETE EXAM: XR FOOT RT COMPLETE CLINICAL HISTORY: RIGHT FOOT PAIN,M79.671. TECHNIQUE: 2D digital imaging was performed. COMPARISON: CR XR FOOT RT COMPLETE from 12/07/2024 FINDINGS: 3 views No evidence of obvious acute fracture. Lucency in the medial base of the proximal phalanx of the 5th toe is unchanged from 12/07/2024 and this probably developmental, as opposed to an acute fracture. The more medial of the 2 sesamoid bones subjacent to the great toe metatarsal head is again noted to be bipartite. There are mild degenerative changes in the great toe metatarsophalangeal joint. No osseous lesions. Bone density age-appropriate. No inferior calcaneal spur. IMPRESSION: As above but no acute osseous findings in the foot. DATA REPOSITORY: RADIATION DOSE DELIVERED:
== END 2025-03-27 02:21 ==
PROVIDERS: PCP Nurse Practitioner; Visit Provider Podiatrist
DX: M19.071 Primary osteoarthritis, right ankle and foot (principal); Q66.221 Congenital metatarsus adductus, right foot; M25.371 Other instability, right ankle; M25.571 Pain in right ankle and joints of right foot
CPT/HCPCS: 99213; 73630

== ENCOUNTER → 2025-04-30 14:39 | Outpatient (BNVA) | payer MEDICARE, SELFPAY | PROVIDERS: PCP Nurse Practitioner; Visit Provider Student in an Organized Health Care Education/Training Program | DX: Z47.1 Aftercare following joint replacement surgery (principal); Z96.612 Presence of left artificial shoulder joint | CPT/HCPCS: 99024 ==

== ENCOUNTER 2025-06-11 15:02 | Outpatient (CLI) | payer MEDICARE, SELFPAY ==
--- NOTE | 2025-06-11 14:45 | DI.RAD_ITS ---
Exam(s) XR SHOULDER LT COMPLETE 2+V EXAM: XR SHOULDER LT COMPLETE 2+V CLINICAL HISTORY: F/U LEFT RTSA. TECHNIQUE: 2D digital imaging was performed. COMPARISON: CR XR SHOULDER LT COMPLETE 2+V from 02/07/2025 CR XR SHOULDER LT COMPLETE 2+V from 02/19/2025 FINDINGS: Two views There is continued stable position alignment of the components of the recently placed reverse left shoulder prosthesis. No fracture or loosening evident. No radiographic evidence of osteomyelitis IMPRESSION: Stable satisfactory appearance of the recently placed (02/07/2025) left shoulder reverse prosthesis. DATA REPOSITORY: RADIATION DOSE DELIVERED:
== END 2025-06-11 15:03 | disposition home or self-care (01) ==
LOC: DIORS 15:02
PROVIDERS: PCP Nurse Practitioner; Referring Provider Nurse Practitioner; Visit Provider Student in an Organized Health Care Education/Training Program
DX: Z47.1 Aftercare following joint replacement surgery (principal); Z96.612 Presence of left artificial shoulder joint; M75.102 Unspecified rotator cuff tear or rupture of left shoulder, not specified as traumatic
CPT/HCPCS: 99213; 73030